=== PATIENT | female | born 1975 | race Caucasian/White ===

== ENCOUNTER 2018-01-30 10:22 | Emergency (ER) | payer OTHER ==
[~2018-01-30] VITALS: Ht 154.9 cm; Wt 61.2 kg
[~2018-01-30 10:22] MED LIST: ABLUNK PO; ACET-1101 PO; ALBUAER2 INH; CLEOCIN PO; MEDLIST
[2018-01-30 10:26] VITALS: Ht 154.9 cm; Wt 61.2 kg
[2018-01-30] MEDS ORDERED: SODIUM CHLORIDE 0.9% 500ML 500 ML IV STA (11:06)
[2018-01-30 11:28] LABS: BASO % 0.4 %; BASO ABS # 0.03 K/uL (0-0.2); EOS % 1.8 %; EOS ABS # 0.14 K/uL (0-0.5); HEMOGLOBIN 14.7 g/dL (12.0-16.0); IG# 0.02 K/uL (0.00-0.02); LYMPH % 27.8 %; MEAN CELL VOLUME 89.2 fL (80-100); MEAN CORPUSCULAR HEMOGLOBIN 31.2 pg (25-34); MEAN PLATELET VOLUME 8.9 fL (7.4-10.4); MONO % 6.3 %; NEUT % 63.4 %; NEUT ABS # 5.01 K/uL (1.4-6.5); PLATELET COUNT 250 K/uL (130-400); RED CELL DISTRIBUTION WIDTH CV 12.7 % (11.5-14.5); RED CELL DISTRIBUTION WIDTH SD 41.4 fL (36.4-46.3)
[2018-01-30 11:45] LABS: ALBUMIN 3.9 gm/dl (3.4-5.0); CALCIUM 9.5 mg/dl (8.5-10.1); CREATININE 0.83 mg/dl (0.60-1.20); POTASSIUM 3.6 mmol/L (3.5-5.1)
[2018-01-30 11:47] LABS: TOTAL PROTEIN 7.4 gm/dl (6.4-8.2)
[2018-01-30] MEDS ORDERED: CEPH500C PO (13:28)
[2018-01-30] MEDS ORDERED: CEPHALEXIN MONOHYDRATE 250 MG CAP PO ONE (13:30)
[2018-01-30 13:58] VITALS: BP 92/71; PULSE 67; TEMP 36.6; O2SAT 94
--- NOTE | 2018-01-30 15:13 | EMERGENCY ROOM VISIT NOTE ---
History Report prepared by Delicia: Jose Stanley Under the Supervision of: Dr. Reji Del Rosario D.O. First contact with patient: 10:59 Chief Complaint: URINARY SYMPTOMS Stated Complaint: PEEING BLOOD, PAIN IN LEFT UPPER ABDOMEN UNDER RIB Nursing Triage Summary: Patient states "I've been peeing blood for 3-4 months. My doctor has been bouncing me around. We done xrays, CT scans. She thinks I have colitis but I don't think that is right. There are time that I pee and there is nothing but blood. I just feel like I am not getting help thru my doctor." History of Present Illness The patient is a 42 year old female who presents to the Emergency Room with complaints of intermittent hematuria beginning four months ago. The patient also complains of left sided abdominal pain, intermittent vomiting and nausea. She most recently vomited this morning. Her additional symptoms have also been present for four months. The patient had a recent abdominal CT two weeks ago which showed colitis. Pain in left upper quadrant has been persistent and unchanged for the past 2 weeks. It is constant. No exacerbating or remitting factors. No diarrhea. No blood in her stools. She feels that she could have an enlarged spleen. Pt denies headache, fevers, chest pain, shortness of breath , diarrhea, and melena. She has a family history of colon cancer and is supposed to receive yearly colonoscopies. She has a history of hysterectomy and cholecystectomy. Source of History: patient Onset: Four months ago Quality: other (hematuria) Timing: intermittent Associated Symptoms: + nausea, + vomiting (intermittent), + abdominal pain ( left sided for four months), No fevers, No headache, No chest pain, No SOB, No melena, No diarrhea Review of Systems See HPI for pertinent positives & negatives. A total of 10 systems reviewed and were otherwise negative. Past Medical & Surgical Medical Problems: (1) Endometriosis Surgical Problems: (1) H/O: hysterectomy (2) Hx of cholecystectomy Family History No pertinent family history stated. Social History Smoking Status: Current Every Day Smoker Housing Status: lives with family Current/Historical Medications Scheduled Cephalexin Monohydrate (Keflex), 500 MG PO TID Allergies Coded Allergies: Hydrocodone (Verified Allergy, Severe, HIVES, CLOSING OF AIRWAY. CAN TAKE TYLENOL W/ CODEINE, 06/17/13) Ibuprofen (Verified Allergy, Severe, HIVES, CLOSING OF AIRWAY, 06/17/13) Acetaminophen (Verified Allergy, ANAPHYLAXIS, 06/17/13) Amoxicillin (Verified Allergy, UNKNOWN, 06/17/13) Clavulanic Acid (Verified Allergy, UNKNOWN, 06/17/13) Lidocaine (Verified Allergy, UNKNOWN, 06/17/13) Oxycodone (Unverified Allergy, ., 06/17/13) Penicillins (Verified Allergy, ANAPHYLAXIS, 06/17/13) Propoxyphene (Verified Allergy, ANAPHYLAXIS, 06/17/13) Morphine (Verified Adverse Reaction, NAUSEA AND VOMITING, 06/17/13) Uncoded Allergies: NOVACAINE (Allergy, UNKNOWN, 10/29/12) Physical Exam Vital Signs Date Time Temp Pulse Resp B/P (MAP) Pulse Ox O2 Delivery O2 Flow Rate FiO2 01/30/18 13:58 36.6 67 20 92/71 94 01/30/18 13:28 67 20 92/71 94 Room Air 01/30/18 11:18 83 19 94/66 100 Room Air 01/30/18 10:26 36.6 74 18 113/81 99 Room Air Physical Exam GENERAL: Sitting up in bed, alert, well appearing, well nourished, no distress, non-toxic EYE EXAM: normal conjunctiva. OROPHARYNX: no exudate, no erythema, lips, buccal mucosa, and tongue normal and mucous membranes are moist NECK: supple, no nuchal rigidity, no adenopathy, non-tender LUNGS: Clear to auscultation. Normal chest wall mechanics HEART: no murmurs, S1 normal and S2 normal ABDOMEN: abdomen soft, non-tender, normo-active bowel sounds, no masses, no rebound or guarding. BACK: Back is symmetrical on inspection and there is no deformity, no midline tenderness, no CVA tenderness. SKIN: no rashes and no bruising UPPER EXTREMITIES: upper extremities are grossly normal. LOWER EXTREMITIES: No pitting edema. NEURO EXAM: Normal sensorium, cranial nerves II-XII grossly intact, normal speech, no gross weakness of arms, no gross weakness of legs. Medical Decision & Procedures ER Provider Diagnostic Interpretation: Radiology results as stated below per my review and the radiologist's interpretation: CT ABDOMEN AND PELVIS WITH CONTRAST (01/24/2018): IMPRESSION: Long segment bowel wall thickening involving the colon, extending from the mid transverse colon through the rectosigmoid colon, raises suspicion for mild colitis, most likely infectious or inflammatory etiology. Tubular fluid collection in the right adnexal region, could represent loculated pelvic fluid, versus hydrosalpinx. Correlation pelvic ultrasound may be helpful, as indicated. Laboratory Results 01/30/18 11:14 Red Blood Count 4.71, Mean Corpuscular Volume 89.2, Mean Corpuscular Hemoglobin 31.2, Mean Corpuscular Hemoglobin Concent 35.0, Mean Platelet Volume 8.9, Neutrophils (%) (Auto) 63.4, Lymphocytes (%) (Auto) 27.8, Monocytes (%) (Auto) 6.3, Eosinophils (%) (Auto) 1.8, Basophils (%) (Auto) 0.4, Neutrophils # (Auto) 5.01, Lymphocytes # (Auto) 2.20, Monocytes # (Auto) 0.50, Eosinophils # (Auto) 0.14, Basophils # (Auto) 0.03 01/30/18 11:14 Test 01/30/18 10:30 01/30/18 11:14 Urine Color DK YELLOW Urine Appearance TURBID (CLEAR) Urine pH 5.5 (4.5-7.5) Urine Specific [place] 1.033 (1.000-1.030) Urine Protein TRACE (NEG) Urine Glucose (UA) NEG (NEG) Urine Ketones TRACE (NEG) Urine Occult Blood 3+ (NEG) Urine Nitrite NEG (NEG) Urine Bilirubin NEG (NEG) Urine Urobilinogen NEG (NEG) Urine Leukocyte Esterase TRACE (NEG) Urine WBC (Auto) 10-30 /hpf (0-5) Urine RBC (Auto) 5-10 /hpf (0-4) Urine Hyaline Casts (Auto) 1-5 /lpf (0-5) Urine Epithelial Cells (Auto) >30 /lpf (0-5) Urine Bacteria (Auto) 4+ (NEG) Urine Renal Epithelial Cells /lpf (0-5) Urine Pathogenic Casts /lpf (0) Urine Yeast (Auto) (NONE PRSENT) Urine Test NEG (NEG) White Blood Count 7.90 K/uL (4.8-10.8) Red Blood Count 4.71 M/uL (4.2-5.4) Hemoglobin 14.7 g/dL (12.0-16.0) Hematocrit 42.0 % (37-47) Mean Corpuscular Volume 89.2 fL (80-100) Mean Corpuscular Hemoglobin 31.2 pg (25-34) Mean Corpuscular Hemoglobin Concent 35.0 g/dl (32-36) Platelet Count 250 K/uL (130-400) Mean Platelet Volume 8.9 fL (7.4-10.4) Neutrophils (%) (Auto) 63.4 % Lymphocytes (%) (Auto) 27.8 % Monocytes (%) (Auto) 6.3 % Eosinophils (%) (Auto) 1.8 % Basophils (%) (Auto) 0.4 % Neutrophils # (Auto) 5.01 K/uL (1.4-6.5) Lymphocytes # (Auto) 2.20 K/uL (1.2-3.4) Monocytes # (Auto) 0.50 K/uL (0.11-0.59) Eosinophils # (Auto) 0.14 K/uL (0-0.5) Basophils # (Auto) 0.03 K/uL (0-0.2) RDW Standard Deviation 41.4 fL (36.4-46.3) RDW Coefficient of Variation 12.7 % (11.5-14.5) Immature Granulocyte % (Auto) 0.3 % Immature Granulocyte # (Auto) 0.02 K/uL (0.00-0.02) Anion Gap 4.0 mmol/L (3-11) Est Creatinine Clear Calc Drug Dose 74.1 ml/min Estimated GFR () 100.8 Estimated GFR (Non- 87.0 BUN/Creatinine Ratio 17.9 (10-20) Calcium Level 9.5 mg/dl (8.5-10.1) Total Bilirubin 0.7 mg/dl (0.2-1) Direct Bilirubin 0.1 mg/dl (0-0.2) Aspartate Amino Transf (AST/SGOT) 7 U/L (15-37) Alanine Aminotransferase (ALT/SGPT) 19 U/L (12-78) Alkaline Phosphatase 84 U/L (45-117) Total Protein 7.4 gm/dl (6.4-8.2) Albumin 3.9 gm/dl (3.4-5.0) Lipase 96 U/L (73-393) Laboratory results per my review. Medications Administered Medications (Trade) Dose Ordered Sig/Petra Route Start Time Stop Time Status Last Admin Dose Admin Sodium Chloride 500 ml @ 999 mls/hr Q31M STAT IV 01/30/18 11:06 01/30/18 11:36 DC 01/30/18 11:16 999 MLS/HR Cephalexin Monohydrate (Keflex Cap) 500 mg NOW ONCE PO 01/30/18 13:30 01/30/18 13:31 DC 01/30/18 13:59 500 MG ED Course ED COURSE: Vital signs were reviewed and appear normal. The patients medical record was reviewed The above diagnostic studies were performed and reviewed. ED treatments and interventions as stated above. 1102: The patient was evaluated in room C11B. A complete history and physical examination was performed. 1106: Ordered Sodium Chloride 500 ml @ 999 mls/hr IV. 1330: Ordered Keflex Cap 500 mg PO. 132: Upon reevaluation, the patient is resting comfortably. I discussed my findings with the patient and he understands and agrees with the treatment plan. Based on the patients age, coexisting illnesses, exam and lab findings the decision to treat as an outpatient was made. The patient remained stable while under my care. The patient appeared well at the time of discharge. Medical Decision Differential diagnoses includes but is not limited to gastritis, peptic ulcer disease, GERD, gallbladder disease, pancreatitis, small bowel obstruction, acute coronary syndrome, pericarditis, ischemic bowel, irritable bowel disease, irritable bowel syndrome, appendicitis, diverticulitis, malignancy, hernia, urinary tract infection, torsion, perforation, trauma, infectious. Patient is a 42-year-old female who presents to ER. That has been present for the past 4 months. She also notes that she has been having left upper quadrant abdominal pain for the same amount of time. IV was established and labs were obtained. CBC along with BMP, LFTs, bilirubin lipase is normal. was negative. UA was contaminated with multiple epithelial cells. Did have hematuria. Patient has CT within the past 2 weeks with the same symptoms. CT did show a little bit of a colitis. With her UA and hematuria did place on Keflex. She has taken this before. She will follow-up with her PCP. Blood pressure was slightly low but this appears to be appropriate for her size/ weight. She was not tachycardic. Afebrile. Patient is otherwise well- appearing discharged follow-up with PCP as an outpatient. Discussed with Pt concerning signs and symptoms to watch out for. Pt was instructed to follow up with their PCP and discussed with the patient their option to return to the ED at anytime for persistent or worsening symptoms. The appropriate anticipatory guidance and out-patient management, including indications for return to the emergency department, were explained at length to the patient and understood. Medication Reconcilliation Current Medication List: was personally reviewed by me Blood Pressure Screening Patient's blood pressure: Normal blood pressure Blood pressure disposition: Did not require urgent referral Impression Primary Impression: Urinary tract infection Additional Impression: Hematuria Scribe Attestation The scribe's documentation has been prepared under my direction and personally reviewed by me in its entirety. I confirm that the note above accurately reflects all work, treatment, procedures, and medical decision making performed by me. Departure Information Dispostion Home / Self-Care Prescriptions Cephalexin Monohydrate (Keflex) 500 Mg Cap 500 MG PO TID for 7 Days, CAP Prov: Reji Del Rosario, DO 01/30/18 Referrals No Doctor, Assigned (PCP) Forms HOME CARE DOCUMENTATION FORM, IMPORTANT VISIT INFORMATION Patient Instructions ED UTI Cystitis Female, Hematuria Poss Causes, My [facility]ure Additional Instructions Please follow up with your primary care doctor with in the next 24 hours. Any worsening of your symptoms, please return to the ED immediately. This includes any fevers greater than 100.4, worsening pain, chest pain, shortness breath, persistent nausea, vomiting, unable to eat or drink, or any other concerning signs or symptoms from your standpoint. Please take antibiotics as prescribed. Problem Qualifiers Primary Impression: Urinary tract infection Urinary tract infection type: site unspecified Hematuria presence: with hematuria Qualified Codes: N39.0 - Urinary tract infection, site not specified ; R31.9 - Hematuria, unspecified Additional Impression: Hematuria Hematuria type: unspecified type Qualified Codes: R31.9 - Hematuria, unspecified
== END 2018-01-30 14:00 | disposition home or self-care (01) ==
LOC: C.EDB 10:25 → C.EDC 14:00
DX: N39.0 Urinary tract infection, site not specified (principal); R31.9 Hematuria, unspecified; N80.9 Endometriosis, unspecified; Z80.0 Family history of malignant neoplasm of digestive organs; F17.210 Nicotine dependence, cigarettes, uncomplicated; Z88.5 Allergy status to narcotic agent; Z88.1 Allergy status to other antibiotic agents; Z88.0 Allergy status to penicillin; Z88.8 Allergy status to other drugs, medicaments and biological substances

== ENCOUNTER → 2018-02-11 | Outpatient (CLI) | payer OTHER ==
[2018-02-11 18:30] LABS: BASO % 0.7 %; BASO ABS # 0.05 K/uL (0-0.2); EOS % 1.9 %; EOS ABS # 0.14 K/uL (0-0.5); HEMATOCRIT 43.4 % (37-47); HEMOGLOBIN 14.6 g/dL (12.0-16.0); IG# 0.01 K/uL (0.00-0.02); LYMPH % 30.2 %; LYMPH ABS # 2.28 K/uL (1.2-3.4); MEAN CELL VOLUME 91.4 fL (80-100); MEAN CORPUSCULAR HEMOGLOBIN 30.7 pg (25-34); MEAN CORPUSCULAR HGB CONC 33.6 g/dl (32-36); MEAN PLATELET VOLUME 9.9 fL (7.4-10.4); MONO % 5.8 %; MONO ABS # 0.44 K/uL (0.11-0.59); NEUT % 61.3 %; NEUT ABS # 4.62 K/uL (1.4-6.5); PLATELET COUNT 256 K/uL (130-400); RED CELL DISTRIBUTION WIDTH CV 13.3 % (11.5-14.5); RED CELL DISTRIBUTION WIDTH SD 44.4 fL (36.4-46.3); WHITE BLOOD COUNT 7.54 K/uL (4.8-10.8)
== END | disposition home or self-care (01) ==
LOC: C.LABMFLN 13:06
PROVIDERS: ATTEND Family Medicine
DX: K52.9 Noninfective gastroenteritis and colitis, unspecified (principal); R10.9 Unspecified abdominal pain

== ENCOUNTER → 2018-02-12 | Outpatient (CLI) | payer OTHER | END | disposition home or self-care (01) | LOC: C.LABMFLN 09:26 | PROVIDERS: ATTEND Family Medicine | DX: K52.9 Noninfective gastroenteritis and colitis, unspecified (principal); R10.9 Unspecified abdominal pain ==

== ENCOUNTER 2019-04-07 05:44 | Observation (INO) ==
--- NOTE | 2019-03-20 14:28 | Anesthesiology Consultation ---
Date of Service March 20, 2019 Assessment & Plan (1) Encounter for pre-operative examination: PATIENT WITH REPORTED LIDOCAINE/NOVOCAINE ALLERGY. NO FORMAL TESTING. CASE D/W DR. DURAND. RECOMMEND THE PATIENT BE ALLERGY TESTED IN THE FUTURE, BUT FOR THIS SURGERY OK TO PROCEED LONG SURGEONS AND OR AWARE (all parties were notified). Chart Review Chart Review: Acceptable Risk for Surgery and Patient seen in Pre Admission Testing Teaching & Discussion Instructed NPO after midnight before surgery, except medications with 15 cc of water. Medication instructions provided according to the PAT guidelines. History Surgery Operation Date: 04/07/19 07:30 Proposed Procedures p Bilateral Breast Mastectomy Nipple Sparing, - Linus Dow, DO s Breast Reconstruction - Dr. Tripathi - Tawny Tripathi MD Height/Weight Height: 5 ft 1 in Weight: 60.1 kg Allergies Allergy/AdvReac Type Severity Reaction Status Date / Time hydrocodone Allergy Severe HIVES, Verified 03/18/19 10:22 CLOSING OF AIRWAY. CAN TAKE TYLENOL W/ CODEINE ibuprofen Allergy Severe HIVES, Verified 03/18/19 10:22 CLOSING OF AIRWAY lidocaine Allergy Severe Anaphylaxis Verified 03/20/19 14:18 onion Allergy Mild Hives Verified 03/18/19 10:22 clavulanic acid Allergy Unknown UNKNOWN Verified 03/18/19 10:22 oxycodone Allergy Unknown . Verified 03/18/19 10:22 propoxyphene Allergy Unknown ANAPHYLAXIS Verified 03/18/19 10:22 Penicillins Allergy Verified 03/18/19 10:22 morphine AdvReac Unknown NAUSEA AND Verified 03/18/19 10:22 VOMITING NOVACAINE Allergy Severe Anaphylaxis Uncoded 03/20/19 14:18 Medications Home Medications Medication Instructions Recorded Confirmed Last Taken albuterol sulfate [Ventolin HFA] 2 puff INHALATION Q6H PRN 03/18/19 03/18/19 Unknown cyanocobalamin (vitamin B-12) 250 mcg PO QAM 03/18/19 03/18/19 Unknown [Vitamin B-12] Past Medical History Medical History Anxiety Asthma uses PRN inh 3-4 x wk BRCA positive 1 and 2 Depression Fibrocystic breast disease Heart palpitations sees Dr. Baldwin every 2 years Hypotension 90/60 norm Migraine Exercise / Class Metabolic Activity II 4-5 Yardwork/Stairs/Walk up hill (No CP or SOB with activity, daily walking on treadmill 5-6 miles) Past Family History Family History Mother Family history of reaction to anesthesia N/V. slow to wake Father Family history of diabetes mellitus Family/Other Family history of diabetes mellitus paternal aunts/uncles Father Family hx of colon cancer Grandfather Family hx of colon cancer Son Family history of irritable bowel syndrome has crohn's Past Surgical History Surgical History History of anesthesia reaction slow to wake History of arthroscopy of left knee History of breast biopsy multiple - (both breasts)--benign History of cholecystectomy History of colonoscopy History of dilatation and curettage x9 History of esophagogastroduodenoscopy (EGD) History of laparoscopy x2 for endometriosis History of myringotomy bilt as a child History of partial hysterectomy History of partial mastectomy of both breasts History of tonsillectomy and adenoidectomy History of tooth extraction wisdom teeth Past Anesthesia History No Hx of Anesthesia Complications 2013 Breast Bx @ [facility] = Smooth IV induction with propofol --> LMA #3 supreme. History of PONV No Hx of PONV and No Hx of Motion Sickness Social History Smoking Status: Former smoker tobacco type: cigarettes Do You Dip or Chew Tobacco: No Smoking End Date: QUIT 6 MONTHS AGO Hx Alcohol Use: No Hx Substance Use: No substance use type: does not use Review of Systems Pt denies any recent chest pain, shortness of breath, palpitations, cough, fever or URI. Physical Exam Vital Signs BP: 101/68 P: 83bpm SPO2: 99% RA T: 97.9 F R: 18 ENMT Mouth: no dental restorations, no chipped teeth and no loose teeth Thyromental Distance: < 3.5 Finger Breadths (3) Mallampati Class: I Most molars are missing (top and bottom) Neck normal visual inspection; neck extension not limited Respiratory normal respiratory effort Auscultation: lungs clear to auscultation bilaterally Cardiovascular Rate/Rhythm: regular rate and regular rhythm Heart Sounds: no murmur Vessels: no carotid bruit Extremities: no edema Testing Laboratory Results 03/20/19 14:34 03/20/19 14:34 03/20/19 14:34 PT 10.3 INR 1.0 APTT 25.4 Electrocardiogram Date: 03/20/19 Findings: + NSR @ (85)
--- NOTE | 2019-03-20 14:30 | PAT Medication Instructions ---
Medication Instructions Date of Service March 20, 2019 Home Medications albuterol sulfate [Ventolin HFA] 2 puff INHALATION Q6H PRN cyanocobalamin (vitamin B-12) [Vitamin B-12] 250 mcg PO QAM DO NOT take the morning of surgery cyanocobalamin (vitamin B-12) [Vitamin B-12] 250 mcg PO QAM Take morning of surgery OTHERWISE NOTHING TO EAT OR DRINK AFTER MIDNIGHT: albuterol sulfate [Ventolin HFA] 2 puff INHALATION Q6H PRN (if needed) Take evening before surgery albuterol sulfate [Ventolin HFA] 2 puff INHALATION Q6H PRN (if needed) Other Notes If you have any questions please call us at [phone] or [phone] or [phone] or [phone]
[2019-03-20 15:21] LABS: BUN Creatinine Ratio 18.5 (10-20); Calcium 8.8 mg/dl (8.5-10.1); Creatinine Clr Calc Pharmacy 77.4 ml/min; Est GFR (African American) 107.9; Est GFR (Non-African American) 93.1; Potassium 4.3 mmol/L (3.5-5.1)
[2019-03-20 15:30] LABS: Partial Thromboplastin Ratio 0.9; Partial Thromboplastin Time 25.4 Seconds (21.0-31.0); Prothrombin Time 10.3 Seconds (9.0-12.0)
[2019-03-20 15:31] LABS: Basophils # (auto) 0.05 K/uL (0-0.2); Basophils % (auto) 0.8 %; Eosinophils # (auto) 0.15 K/uL (0-0.5); Eosinophils % (auto) 2.4 %; Hematocrit (blood only) 42.6 % (37-47); Hemoglobin 14.8 g/dL (12.0-16.0); Immature Granulocytes # (auto) 0.01 K/uL (0.00-0.02); Immature Granulocytes % (auto) 0.2 %; Lymphocytes # (auto) 2.58 K/uL (1.2-3.4); Lymphocytes % (auto) 41.6 %; Mean Corpuscular Hgb Conc 34.7 g/dL (32-36); Mean Corpuscular Volume 91.6 fL (80-100); Mean Platelet Volume 9.3 fL (7.4-10.4); Monocytes # (auto) 0.44 K/uL (0.11-0.59); Monocytes % (auto) 7.1 %; Neutrophils # (auto) 2.97 K/uL (1.4-6.5); Neutrophils % (auto) 47.9 %; Platelet Count 260 K/uL (130-400); RDW Coefficient of Variation 12.3 % (11.5-14.5); RDW Standard Deviation 41.2 fL (36.4-46.3); Red Blood Count 4.65 M/uL (4.2-5.4)
[2019-04-07] MEDS ORDERED: LR 15ML/HR IV SCH (06:00)
[2019-04-07] MEDS ORDERED: CLINDAMYCIN 900 MG / 50ML D5W IV SCH (06:00)
[2019-04-07] MEDS ORDERED: ePHEDrine sulfate 50 MG/ML AMP IV PRN (06:55)
[2019-04-07] MEDS ORDERED: ATROPINE SULFATE 0.1 MG/ML 10ML SYR IV PRN (06:55)
[2019-04-07] MEDS ORDERED: PROMETHAZINE HCL 6.25 MG in SODIUM CHLORIDE 0.9% 50 ML IV PRN (06:55)
[2019-04-07] MEDS ORDERED: ONDANSETRON INJ 2 MG/ML 2 ML VIAL IV PRN (06:55)
--- NOTE | 2019-04-07 07:02 | History & Physical Bridge Note ---
Date of Service April 07, 2019 History & Physical Bridge Note I have examined the patient, reviewed the History & Physical and in the interval since the performance of the History & Physical I have noted the following changes of clinical significance: no changes noted
[2019-04-07] MEDS ORDERED: MIDAZOLAM HCL 1 MG/ML 2ML VIAL ONE (07:10)
[2019-04-07] MEDS ORDERED: fentaNYL citrate 100 MCG/2 ML VIAL ONE ×5 (07:10→13:56)
[2019-04-07] MEDS ORDERED: SCOPOLAMINE 1.5 MG TDSY ONE (07:13)
[2019-04-07] MEDS ORDERED: SCOPOLAMINE 1.5 MG TDSY TD SCH (07:15)
[2019-04-07] MEDS ORDERED: BUPIVACAINE 0.5 % 5 MG/1 ML PF 10ML VIAL ONE (07:18)
--- NOTE | 2019-04-07 07:40 | History & Physical Bridge Note ---
Date of Service April 07, 2019 History & Physical Bridge Note I have examined the patient, reviewed the History & Physical and in the interval since the performance of the History & Physical I have noted the following changes of clinical significance: no changes noted. Patient states she is not smoking.
[2019-04-07] MEDS ORDERED: KETAMINE HCL INJ 50 MG/ML 10 ML VIAL ONE (08:01)
[2019-04-07] MEDS ORDERED: ONDANSETRON INJ 2 MG/ML 2 ML VIAL ONE (08:21)
[2019-04-07] MEDS ORDERED: PROPOFOL IV EMULSION 10 MG/ML 20 ML VIAL IV ONE (08:21)
[2019-04-07] MEDS ORDERED: ROCURONIUM BROMIDE 10 MG/ML 5 ML VIAL ONE ×3 (08:21→12:30)
[2019-04-07] MEDS ORDERED: GLYCOPYRROLATE 0.2 MG/ML VIAL ONE (08:21)
[2019-04-07] MEDS ORDERED: NEOSTIGMINE METHYLSULFATE 5 MG/5 ML SYR ONE (08:21)
[2019-04-07] MEDS ORDERED: CEFAZOLIN 250 MG/ML 1 GM VIAL ONE ×2 (10:05→11:02)
[2019-04-07] MEDS ORDERED: GENTAMICIN SULFATE 40 MG/ML 2 ML VIAL ONE ×2 (10:06→11:02)
[2019-04-07] MEDS ORDERED: BACITRACIN INJ 50,000 UNIT VIAL ONE ×2 (10:06→11:02)
--- NOTE | 2019-04-07 10:53 | Operative Report ---
Post Operative Report Pre & Post Diagnosis Operation Date: 04/07/19 07:30 Pre-Op Diagnosis: Mass Axillary Tail Left Breast, Masses Right Breast Post-Op Diagnosis: Mass Axillary Tail Left Breast, Masses Right Breast Procedure Operation Date: 04/07/19 07:30 Actual Procedures p Bilateral Breast Mastectomy, Nipple Sparing,(Bilateral) - Linus Dow DO s First Stage Bilateral Immediate Breast Reconstruction with Tissue Expanders and Acellular Dermal Matrix(Bilateral) - Tawny Tripathi MD Surgeon Linus Dow DO [facility] Ravi Estimated Blood Loss 100 Findings Consistent with Post-Op Diagnosis Specimens right and left breasts Description of Procedure Prior to coming to the operating room the patient had been marked by Dr. Tripathi in the preop holding area. Patient was then brought to the operating room placed in supine position with both arms extended. After successful intubation the entire chest wall axilla and upper arms were sterilely prepped and draped in usual fashion. I began with the right breast. We made an inframammary curvilinear incision along the previously marked lines with a 10 blade scalpel. We used electrocautery traction countertraction to begin making flaps superiorly laterally and medially. We carried this posteriorly to the pectoralis fascia. Throughout the procedure there was a lot of scarring from her previous surgeries as well as current cystic tissue some of it with sebaceous type of fluid and some with thinner serous fluid. Nonetheless we continued to proceed medially superiorly and ultimately laterally. We continued to use multiple types of retractors as well as traction/ countertraction and cautery. Any small bleeding points were controlled using cautery. Part way through the procedure I amputated part of the breast to allow for better visualization. We then continued towards the axillary tail. I tried to leave relatively thick flaps especially in the retroareolar region to help minimize risk of necrosis secondary to her multiple prior surgeries. There was an area just superior to the right nipple areolar complex that was extremely thin and a very small buttonhole was made during this process. There appeared to be reasonable blood flow throughout the procedure. Eventually I was able to remove the entire right breast. There was adequate hemostasis. We thoroughly irrigated the entire wound and packed it with moist sponges. We used exact same technique then for the left breast. I changed my gloves and began with a fresh blade to make again an inframammary incision on the previously marked lines. Again using traction countertraction retractors we went down to the fascia of the pectoralis muscle. We did not take pectoralis fascia on either side though scarring did make the plane somewhat difficult. We continued in a superior to lateral fashion. Again partly through the procedure I amputated part of the breast for better visualization. The left breast also had a lot of scarring as well as cystic tissue present. All of this made dissection quite difficult as the natural tissue planes had been obliterated. Again eventually we were able to remove the entire specimen. Again I tried to leave relatively thick flaps especially in the retroareolar region. Once we had the breast tissue completely out we thoroughly irrigated the wound and again packed with damp sponges. At this point Dr. Tripathi took over the case to place the tissue expanders. Please see her dictation regarding that. My physician custody assistant was present to the entire case. He assisted with prepping the patient. Helped with retraction throughout the procedure. I attest to the content of the Intraoperative Record and any orders documented therein. Any exceptions are noted below.
[2019-04-07] MEDS ORDERED: SODIUM CHLORIDE 0.9% INJ 10 ML VIAL ONE (11:20)
[2019-04-07] MEDS ORDERED: ACETAMINOPHEN 1000 MG/100 ML IV IV ONE (12:26)
[2019-04-07] MEDS ORDERED: HYDROmorphone INJ 2 MG/ML SYR/VIAL ONE (13:24)
--- NOTE | 2019-04-07 13:41 | Post Operative Brief Note ---
Immediate Post Op Note v1 Date of Surgery April 07, 2019 Pre & Post Diagnosis Operation Date: 04/07/19 07:30 Pre-Op Diagnosis: Mass Axillary Tail Left Breast, Masses Right Breast Post-Op Diagnosis: Mass Axillary Tail Left Breast, Masses Right Breast Procedure Operation Date: 04/07/19 07:30 Actual Procedures p Bilateral Breast Mastectomy, Nipple Sparing,(Bilateral) - Linus Dow, s First Stage Bilateral Immediate Breast Reconstruction with Tissue Expanders and Acellular Dermal Matrix(Bilateral) - Tawny Tripathi MD Surgeon Tawny Tripathi MD L Tacker Mary Nash PA-C Estimated Blood Loss 100 ([address] Dow ) Findings Consistent with Post-Op Diagnosis Drains Amaral Catheter and Ricardo-Garcia Drain (X 2 15 Bulgarian round )
--- NOTE | 2019-04-07 13:46 | Operative Report ---
Post Operative Report Pre & Post Diagnosis Operation Date: 04/07/19 07:30 Pre-Op Diagnosis: Mass Axillary Tail Left Breast, Masses Right Breast Post-Op Diagnosis: Mass Axillary Tail Left Breast, Masses Right Breast Procedure Operation Date: 04/07/19 07:30 Actual Procedures p Bilateral Breast Mastectomy, Nipple Sparing,(Bilateral) - Linus Dow, DO s First Stage Bilateral Immediate Breast Reconstruction with Tissue Expanders and Acellular Dermal Matrix(Bilateral) - Tawny Tripathi MD Surgeon Tawny Tripathi MD Horticultural Farmer Mary Nash PA-C Estimated Blood Loss 100 ([address] Dow ) Findings Consistent with Post-Op Diagnosis Specimens none Drains KAY x2 Anesthesia Type General Complications none Indications s/p bilateral mastectomies, desiring reconstruction Description of Procedure Patient was marked preoperatively in the holding area. Mastectomies performed by Dr. Dow and separately documented. Following completion, a new time out was performed and new drapes were placed. I began with the left side. Hemostasis was achieved with electrocautery. Pectoralis major muscle was then identified and elevated. Inferior attachments of pectoralis major muscle were divided along the ribs medially to the sternum. None of the sternal attachments were dissected. The retropectoral plane was then developed using electrocautery. Hemostasis was achieved using cautery. Once adequate dissection had been performed, I then chose a piece of medium contour thick AlloDerm which was then used to create a sling for the lower pole. This was first sutured to the inframammary fold and rib periosteum using 2-0 Vicryl U stitches. Pocket was then measured and base diameter was 11 cm. Therefore, I selected a 11 cm Allergan style 133 MVT tissue school office assistant with fill volume 250 mL. The school office assistant was prepared and air was aspirated out. The school office assistant was soaked in antibiotic irrigation and antibiotic irrigation was used to irrigate the pocket. All instruments were wiped down and gloves were changed. Financial Manager was placed along the inframammary fold as medially as possible. Suture tabs were sutured down to underlying periosteum using a 2-0 Vicryl suture. The remainder of the school office assistant was then enclosed using 2-0 Vicryl running suture to reapproximate the AlloDerm which had been trimmed to size and this was approximated to the pectoralis major muscle. Laterally, this was closed down using 2-0 Vicryl interrupted sutures as well. A 15-Maltese Yasmani drain was placed in the wound and brought out through a separate stab incision. Prior to reapproximating the wound the fill port was identified using the magnifinder and accessed using 22-gauge needle. A total of 175 mL were placed prior to closure. Wound was reapproximated using 2-0 Vicryl deep dermal suture, 3-0 PDS superficial dermal suture and 3-0 Monocryl running subcuticular suture. Drain was sutured in place using 3-0 nylon. Dermabond was applied. A similar procedure was performed on the right side, first freshening the edges of the wound as they appeared a bit desicated. Also, there was a small 1 cm button hole on the right side, and this was excised and closed using 5-0 monocryl running subcuticular suture. The drain site was dressed using Acticoat dry dressing and Tegaderm. Dry dressings were placed over the incision. Procedure was tolerated well. Mary Nash PA-C was present and scrubbed throughout the entire procedure and was instrumental in providing exposure during elevation of pectoralis muscle and suturing of the AlloDerm as well as filling expanders and assisting in wound closure. I attest to the content of the Intraoperative Record and any orders documented therein. Any exceptions are noted below.
[2019-04-07] MEDS ORDERED: HYDROmorphone INJ 1 MG/ML SYRINGE ONE (13:57)
[2019-04-07] MEDS: fentaNYL citrate 100 MCG/2 ML VIAL IV PRN ×4 (14:00→14:15)
--- NOTE | 2019-04-07 14:14 | Anesthesiology Progress Note ---
Date of Service April 07, 2019 Anesthesia Post Procedure Vital Signs Vital Signs: Temp Pulse Pulse Resp BP BP Pulse Ox 04/07/19 13:51 36.9 C 94 H 16 139/78 100 04/07/19 06:13 36.9 C 78 18 111/69 100 Pain Intensity Bilateral Breast: Pain Intensity: 8 Transfer of Care Handoff Completed per policy Notes Mental Status: alert / awake / arousable Patient Amnestic to Procedure: Yes Nausea / Vomiting: adequately controlled Pain: adequately controlled Airway Patency, RR, SpO2: stable & adequate BP & HR: stable & adequate Hydration State: stable & adequate Anesthetic Complications: no major complications apparent
[2019-04-07] MEDS: HYDROmorphone INJ 2 MG/ML SYR/VIAL IV PRN ×3 (14:30→14:40)
[2019-04-07] MEDS ORDERED: ACETAMINOPHEN 1000 MG/100 ML IV IV PRN (15:36)
[2019-04-07] MEDS ORDERED: ALBUTEROL HFA 8 GM INHALER INH PRN (15:36)
[2019-04-07] MEDS ORDERED: OXAZEPAM 10 MG CAPSULE PO PRN (15:36)
[2019-04-07] MEDS ORDERED: PROMETHAZINE HCL 12.5 MG in SODIUM CHLORIDE 0.9% 50 ML IV PRN (15:36)
[2019-04-07] MEDS ORDERED: DiphenhydrAMINE HCL 50 MG/ML VIAL IV PRN (15:36)
[2019-04-07] MEDS: CHECK SCOPOLAMINE PATCH PLACEMENT SCH ×3 (17:25→23:27)
[2019-04-07] MEDS: HYDROmorphone INJ 1 MG/ML SYRINGE IV PRN ×3 (17:33→21:57)
[2019-04-07] MEDS: D5W AND 1/2NSS + 20MEQ KCL 20 MEQ/1,000 ML BAG IV SCH (17:37)
[2019-04-07] MEDS: ONDANSETRON INJ 2 MG/ML 2 ML VIAL IV PRN (18:24)
[2019-04-07] MEDS: CLINDAMYCIN 600 MG in DEXTROSE 5% 50 ML IV SCH (19:02)
[2019-04-08] MEDS: HYDROmorphone INJ 1 MG/ML SYRINGE IV PRN ×4 (00:41→11:50)
[2019-04-08] MEDS: CLINDAMYCIN 600 MG in DEXTROSE 5% 50 ML IV SCH ×2 (01:41→09:32)
[2019-04-08] MEDS: D5W AND 1/2NSS + 20MEQ KCL 20 MEQ/1,000 ML BAG IV SCH ×2 (07:39→19:48)
[2019-04-08] MEDS: ONDANSETRON INJ 2 MG/ML 2 ML VIAL IV PRN (07:42)
[2019-04-08] MEDS ORDERED: ONDANSETRON 4 MG OD TAB PO PRN (07:55)
--- NOTE | 2019-04-08 07:57 | Anesthesiology Progress Note ---
Date of Service April 08, 2019 Anesthesia Post Procedure Vital Signs Vital Signs: Temp Pulse Pulse Pulse Resp BP BP 04/08/19 07:09 37.1 C 92 H 16 04/08/19 03:18 36.8 C 75 16 04/07/19 22:51 36.9 C 86 16 04/07/19 18:45 36.6 C 72 13 130/74 04/07/19 17:50 36.7 C 73 18 04/07/19 16:40 36.5 C 71 18 04/07/19 16:10 36.5 C 68 16 04/07/19 15:40 36.7 C 100 H 15 04/07/19 15:27 37.0 C 04/07/19 15:25 98 H 14 04/07/19 15:21 72 13 04/07/19 15:20 72 14 99/62 L 04/07/19 15:16 80 14 04/07/19 15:15 95 H 14 140/63 04/07/19 15:11 76 14 04/07/19 15:10 96 H 14 128/68 04/07/19 15:08 37.0 C 04/07/19 15:06 69 8 L 04/07/19 15:05 74 14 117/65 04/07/19 15:01 97 H 9 L 04/07/19 15:00 67 7 L 129/66 04/07/19 14:56 93 H 11 L 04/07/19 14:55 73 7 L 123/61 04/07/19 14:51 77 15 04/07/19 14:50 68 14 121/57 L 04/07/19 14:46 70 14 04/07/19 14:45 68 19 106/64 04/07/19 14:41 71 13 04/07/19 14:40 78 14 126/74 04/07/19 14:36 67 20 04/07/19 14:35 72 18 132/63 04/07/19 14:31 68 18 04/07/19 14:30 69 14 124/63 04/07/19 14:26 66 21 04/07/19 14:25 69 18 116/60 04/07/19 14:21 66 13 04/07/19 14:20 66 13 114/62 04/07/19 14:16 64 22 04/07/19 14:15 72 17 119/67 06/17/19 14:11 63 18 04/07/19 14:10 67 17 116/66 04/07/19 14:06 70 20 04/07/19 14:05 69 22 124/65 04/07/19 14:01 74 18 04/07/19 14:00 72 24 127/75 04/07/19 13:56 71 19 04/07/19 13:55 72 22 124/70 04/07/19 13:52 96 H 20 139/78 04/07/19 13:51 36.9 C 94 H 20 BP Pulse Ox 04/08/19 07:09 107/68 95 04/08/19 03:18 107/71 96 04/07/19 22:51 97/66 L 97 04/07/19 18:45 95 04/07/19 17:50 111/72 96 04/07/19 16:40 106/60 99 04/07/19 16:10 120/68 94 04/07/19 15:40 121/68 93 04/07/19 15:27 96 04/07/19 15:25 95 04/07/19 15:21 96 04/07/19 15:20 95 04/07/19 15:16 94 04/07/19 15:15 96 04/07/19 15:11 96 04/07/19 15:10 95 04/07/19 15:08 96 04/07/19 15:06 94 04/07/19 15:05 96 04/07/19 15:01 94 04/07/19 15:00 93 04/07/19 14:56 96 04/07/19 14:55 95 04/07/19 14:51 98 04/07/19 14:50 96 04/07/19 14:46 96 04/07/19 14:45 97 04/07/19 14:41 97 04/07/19 14:40 96 04/07/19 14:36 98 04/07/19 14:35 98 04/07/19 14:31 100 04/07/19 14:30 99 04/07/19 14:26 100 04/07/19 14:25 99 04/07/19 14:21 99 04/07/19 14:20 100 04/07/19 14:16 100 04/07/19 14:15 04/07/19 14:11 04/07/19 14:10 04/07/19 14:06 04/07/19 14:05 04/07/19 14:01 04/07/19 14:00 04/07/19 13:56 04/07/19 13:55 04/07/19 13:52 04/07/19 13:51 139/78 100 Pain Intensity Bilateral Breast: Pain Intensity: 9 Notes Mental Status: alert / awake / arousable Patient Amnestic to Procedure: Yes Nausea / Vomiting: adequately controlled Pain: adequately controlled Airway Patency, RR, SpO2: stable & adequate BP & HR: stable & adequate Hydration State: stable & adequate Anesthetic Complications: no major complications apparent and Pt Satisfied with anesthetic care
[2019-04-08] MEDS ORDERED: ACETAMINOPHEN W/CODEINE #3 1 TAB PO PRN (08:04)
--- NOTE | 2019-04-08 08:09 | Surgery Progress Note ---
Date of Service April 08, 2019 Assessment & Plan (1) Encounter for breast reconstruction following mastectomy: s/p bilateral mastectomy with immediate reconstruction using tissue expanders and acellular dermal matrix 1. Will start patient on Tylenol #3. If able to control pain this morning, plan for d/c later today 2. f/u in office . restrictions reviewed Subjective Patient resting comfortably. She has had discomfort but would like to try PO pain medication since that is what she will be taking at home. Has nausea that is controlled with Zofran. Physical Exam Constitutional: WD/WN, vitals as above no acute distress Skin: + incision (CDI, flaps with some central ecchymosis, appear viable and warm. ) drains with bloody and serous output Results & Data Vital Signs (Past 12 Hours) Vital Signs Temp Pulse Resp BP Pulse Ox 04/08/19 07:09 37.1 C 92 H 16 107/68 95 04/08/19 03:18 36.8 C 75 16 107/71 96 04/07/19 22:51 36.9 C 86 16 97/66 L 97
[2019-04-08] MEDS ORDERED: CYANOCOBALAMIN 500 MCG TABLET (VITAMIN B-12) PO SCH (09:00)
[2019-04-08] MEDS ORDERED: MULTIVITAMIN TAB PO SCH (09:00)
--- NOTE | 2019-04-08 09:13 | Surgery Progress Note ---
Date of Service April 08, 2019 Assessment & Plan (1) Bilateral breast cysts: pod 1 doing as anticipated ok for d/c later today/tomorrow pending pain control Subjective doing ok POD 1 considerable discomfort but reasonable on dilaudid. Physical Exam Physical Exam: alert. nad dressings intact/dry Results & Data Vital Signs (Past 12 Hours) Vital Signs Temp Pulse Resp BP Pulse Ox 04/08/19 07:09 37.1 C 92 H 16 107/68 95 04/08/19 03:18 36.8 C 75 16 107/71 96 04/07/19 22:51 36.9 C 86 16 97/66 L 97
[2019-04-08] MEDS: CHECK SCOPOLAMINE PATCH PLACEMENT SCH (10:03)
[2019-04-08] MEDS: HYDROmorphone HCL 2 MG TAB PO PRN ×2 (15:44→19:47)
[2019-04-08] MEDS: ACETAMINOPHEN 65 ML IV SCH ×2 (16:17→23:17)
[2019-04-08] MEDS: ACETAMINOPHEN W/CODEINE #3 1 TAB PO PRN (22:01)
[2019-04-09] MEDS: HYDROmorphone HCL 2 MG TAB PO PRN ×2 (01:41→07:07)
[2019-04-09] MEDS: ACETAMINOPHEN W/CODEINE #3 1 TAB PO PRN (04:05)
[2019-04-09] MEDS: ACETAMINOPHEN 65 ML IV SCH (07:53)
--- NOTE | 2019-04-09 07:57 | Discharge Summary ---
Date of Service April 09, 2019 Admission HPI Per Admitting Provider see admission H&P Admission Exam Per Admitting Provider see admission H&P Principal Diagnosis Increased risk of breast cancer, encounter for breast reconstruction following mastectomy Discharge Exam Constitutional WD/WN, vitals as above no acute distress Skin + incision (CDI, flaps with some central ecchymosis, appear viable and warm. ) Discharge Data Allergies Allergy/AdvReac Type Severity Reaction Status Date / Time hydrocodone Allergy Severe HIVES, Verified 04/07/19 06:10 CLOSING OF AIRWAY. CAN TAKE TYLENOL W/ CODEINE ibuprofen Allergy Severe HIVES, Verified 04/07/19 06:10 CLOSING OF AIRWAY lidocaine Allergy Severe Anaphylaxis Verified 04/07/19 06:10 Penicillins Allergy Severe Anaphylaxis Verified 04/07/19 16:02 propoxyphene Allergy Severe ANAPHYLAXIS Verified 04/07/19 16:02 onion Allergy Mild Hives Verified 04/07/19 06:10 clavulanic acid Allergy Unknown UNKNOWN Verified 04/07/19 06:10 oxycodone Allergy Unknown . Verified 04/07/19 06:10 morphine AdvReac Mild NAUSEA AND Verified 04/07/19 16:02 VOMITING Consultations 04/08/19 14:05 Consult Case Management - Discharge Planning Stat Procedures Performed Operation Date: 04/07/19 07:30 Actual Procedures p Bilateral Breast Mastectomy, Nipple Sparing,(Bilateral) - DO cristian Winter First Stage Bilateral Immediate Breast Reconstruction with Tissue Expanders and Acellular Dermal Matrix(Bilateral) - Tawny Tripathi MD Ordered Studies 04/07/ 07:07 US - OR guided needle placemen Routine US - OR guided needle placemen Routine Hospital Course (1) Encounter for breast reconstruction following mastectomy: Patient presented to [facility] with history of bilateral breast cysts and increased risk of breast cancer. She was taken to the OR and underwent bilateral mastectomy with Dr. Dow and immediate breast reconstruction using tissue expanders and acellular dermal matrix with Dr. Tripathi. There were no intraoperative complications. She was taken to recovery and transferred to med/surg for observation. On POD#1, she was feeling well but did have considerable pain. Her pain was controlled with IV pain medication but not PO pain medications. She was tolerating a regular diet and ambulating. On exam, her vitals were stable. Her incisions were CDI. Her drains had appropriate output. She was kept overnight for pain control. On POD#2 her pain was optimized with PO dilaudid and Tylenol #3. On exam, her dressings were removed and flaps were warm and viable. She was discharged home with instructions to follow-up in the office. Total Time Total Time Spent Total Time Spent (In Minutes): 15 Total Time Includes: Examination of the Patient, Discharge Planning and Medication Reconciliation Discharge Plan Discharge Items Patient Disposition: Home - Self-Care Reason For Visit: Mass Axillary Tail Left Breast, Masses Right Breas Discharge Diagnosis: s/p bilateral mastectomy with immediate reconstruction Discharge Goals: Decrease discomfort and Improve function Activity: As commented below Non-emergency contact: Surgeon Call non-emergency contact if: you have any medication questions, your pain is unusual for you, you have a fever, your wound has increased redness and your wound has increased drainage Follow-up/Referrals: Jian Hatch MD [Primary Care Provider] - Diet: Regular Addtl Provider Instructions: ACTIVITY RECOMMENDATIONS: __Normal activities _x_No bending, lifting or straining __No driving __Driving allowed when you are off pain medications _x_Walking permitted __You should have help at home for ___ days DRESSINGS: __No dressings required _x_Keep dressings dry/in place until first office visit __Remove dressings ___ and leave dressings off __Apply ice ___ days __Remove dressings and reapply garment __Apply antibiotic ointment (Bacitracin, Neosporin, etc) to wounds 3-4 times/day for 10 days BATHING: _x_Keep dressings dry _x_Sponge bathing permitted away from surgical area __Showering permitted _x_No swimming, hot tubs or soaking in a tub. No showering until drains are removed. MEDICATIONS: Resume previous medications unless instructed otherwise by your surgeon. _x_Do not use aspirin, Motrin, Advil or Ibuprofen as these may promote bleeding. Please use Tylenol. _x_Prescription(s) provided: Pain medication and antibiotics were prescribed at your last office visit. Start antibiotics once home. You must remain on antibiotics while drains are in place. If you run out of refills, call the office. OTHER INSTRUCTIONS: * _x_Record drain output 2-3 times per day. Drains are ready to be removed when output is 10cc/24 hours and stays at this level for 2 days. Call the office when you think they are ready to be removed. SPECIAL CARE INSTRUCTIONS: * It is normal to have a mild fever after surgery. If your temperature is higher than 101.5 degrees F, please call the office at [phone]. * Constipation is a typical side effect of pain medication. An [id number] stool softener will help relieve this. * Leaking around surgical drains may occur and should not cause concern. Sometimes these drains become clogged. If this happens, remove the bulb and milk the clot out of the tube, then replace the bulb. * Drainage from wounds after liposuction is normal and should be expected. Garments will become soiled. You should protect furniture and bedding. This drainage should mostly subside within 2-3 days. Leave garments in place unless instructed to remove them. * If you have unusual drainage from a wound or are concerned you have an infection or have any questions or concerns, please call the office at [phone]. FOLLOW UP VISIT: If not already scheduled, please call the office, , when you return home after surgery to schedule an appointment to be seen in __1_ days. Prescriptions: Continued Vitamin B-12 250 mcg Tablet 250 mcg PO QAM RF: 0 albuterol sulfate [Ventolin HFA] 90 mcg/actuation Hfa Aerosol Inhaler 2 puff INHALATION Q6H PRN (Reason: Shortness Of Breath) RF: 0 Stand-Alone Forms: [facility], Opioid Pain Management Discharge Orders: Discharge Order (Routine); Ordered 04/09/19 Ordered By: Mary Nash Admission Data Admit Date/Time: 04/07/19 14:18 Attending Provider: Tawny Tripathi Admit Provider: Tawny Tripathi Primary Care Provider: Jian Hatch Other Providers: Tawny Tripathi Service: Surgical Services Other Interventions: Discharge Summary Assessment (RN) Last Done: 04/09/19 08:10 DC Date/Time DO NOT enter until pt leaves facility: 04/09/19 09:22
--- NOTE | 2019-04-09 08:01 | Surgery Progress Note ---
Date of Service April 09, 2019 Assessment & Plan (1) Encounter for breast reconstruction following mastectomy: s/p bilateral mastectomy with immediate reconstruction using tissue expanders and acellular dermal matrix 1. POD#2- patient has better pain control today. She was provided with script for PO dilaudid and Zofran for at home use. Discussed Dilaudid with case management who states prescription will be covered at cost of $12 to patient- this was verbalized to the patient 2. dressings removed today. no new dressings required 3. d/c home today. f/u in office for suture and drain removal Subjective Patient has better pain control today. Found that alternating PO dilaudid and Tylenol #3 has optimized her pain control. Physical Exam Constitutional: WD/WN, vitals as above no acute distress Skin: + incision (CDI, flaps with some central ecchymosis, appear viable and warm. ) Results & Data Vital Signs (Past 12 Hours) Vital Signs Temp Pulse Resp BP Pulse Ox 04/09/19 07:25 37.1 C 91 H 15 108/72 94 04/08/19 23:10 37.0 C 98 H 16 112/68 94
== END 2019-04-09 09:22 | disposition home or self-care (01) ==
LOC: 3W 05:44 → ASU 05:44
DX: F32.9 Major depressive disorder, single episode, unspecified; D24.2 Benign neoplasm of left breast; N60.22 Fibroadenosis of left breast; J45.909 Unspecified asthma, uncomplicated; N60.12 Diffuse cystic mastopathy of left breast; E53.8 Deficiency of other specified B group vitamins; G62.9 Polyneuropathy, unspecified; Z88.5 Allergy status to narcotic agent; Z88.4 Allergy status to anesthetic agent; Z80.3 Family history of malignant neoplasm of breast; D24.1 Benign neoplasm of right breast; Z87.891 Personal history of nicotine dependence; N60.11 Diffuse cystic mastopathy of right breast; K21.9 Gastro-esophageal reflux disease without esophagitis; N60.21 Fibroadenosis of right breast; Z88.0 Allergy status to penicillin

== ENCOUNTER 2019-07-13 13:20 | Inpatient (IN) ==
[2019-07-13] MEDS ORDERED: ONDANSETRON INJ 2 MG/ML 2 ML VIAL IV STA ×2 (13:34→14:08)
[2019-07-13] MEDS ORDERED: SODIUM CHLORIDE 0.9% 1000ML 1,000 ML IV SCH (13:45)
[2019-07-13 14:03] LABS: Basophils # (auto) 0.03 K/uL (0-0.2); Basophils % (auto) 0.4 %; Eosinophils # (auto) 0.08 K/uL (0-0.5); Eosinophils % (auto) 1.2 %; Hematocrit (blood only) 40.3 % (37-47); Hemoglobin 13.8 g/dL (12.0-16.0); Immature Granulocytes # (auto) 0.01 K/uL (0.00-0.02); Immature Granulocytes % (auto) 0.1 %; Lymphocytes % (auto) 24.8 %; Mean Corpuscular Hemoglobin 30.5 pg (25-34); Mean Corpuscular Hgb Conc 34.2 g/dL (32-36); Mean Corpuscular Volume 89.2 fL (80-100); Mean Platelet Volume 9.2 fL (7.4-10.4); Monocytes # (auto) 0.59 K/uL (0.11-0.59); Monocytes % (auto) 8.6 %; Neutrophils # (auto) 4.45 K/uL (1.4-6.5); Neutrophils % (auto) 64.9 %; Platelet Count 202 K/uL (130-400); RDW Coefficient of Variation 12.7 % (11.5-14.5); RDW Standard Deviation 40.9 fL (36.4-46.3); Red Blood Count 4.52 M/uL (4.2-5.4); White Blood Count 6.86 K/uL (4.8-10.8)
[2019-07-13] MEDS ORDERED: DAPTOmycin 275 MG in SYRINGE 0 ML IV ONE (14:08)
[2019-07-13] MEDS ORDERED: AZTREONAM 2,000 MG in DEXTROSE 5% 100 ML IV STA (14:08)
[2019-07-13 14:20] LABS: Albumin Level 3.6 gm/dl (3.4-5.0); BUN Creatinine Ratio 15.1 (10-20); Calcium 8.4 mg/dl (8.5-10.1); Creatinine Clr Calc Pharmacy 85.4 ml/min; Est GFR (Non-African American) 99.2; Potassium 3.9 mmol/L (3.5-5.1)
[2019-07-13 14:22] LABS: Albumin Globulin Ratio 1.1 (0.9-2); Bilirubin,Total 0.6 mg/dl (0.2-1); Globulin 3.2 gm/dl (2.5-4.0); Total Protein 6.8 gm/dl (6.4-8.2)
[2019-07-13] MEDS: HYDROmorphone INJ 0.5 MG/0.5 ML SYR IV PRN (14:43)
--- NOTE | 2019-07-13 15:09 | Surgery Consultation ---
Date of Consultation July 13, 2019 Assessment & Plan (1) Cellulitis: Right breast cellulitis with bilateral tissue expanders in place- Case discussed with patient and Dr. Trujillo. Clinically this is most consistent with cellulitis (cause unknown) and she is at risk of reconstructive loss if cellulitis is not treated aggressively. Less likely causes of the erythema are seroma, lymphadema, allergic reaction. Admission recommended due to cellulitis and other symptoms. She will be started on cefepime/Vanco per medical service. Ultrasound ordered to assess for seroma or abscess. Consider adding antihistamine. Patient understands if we are able to control this we may be able to proceed with her planned outpatient procedure, but if she fails to respond to treatment there is a possibility of need for distribution sales manager exchange or complete removal. Will follow closely. (2) Breast implant status: History of Present Illness Reason for Consultation: right breast cellulitis History of Present Illness Patient is a 43 year old female with history of severe fibrocystic disease of the breasts, multiple prior breast biopsies, BRCA + who underwent bilateral mas tectomies with Dr. Dow, bilateral first stage immediate breast reconstruction with tissue expanders and Alloderm performed by me in March 2019. She was last seen in our office about 6 weeks ago, fully expanded and doing well, with plans to undergo implant exchange for silicone implants on 08/08/19. She contacted me via the answering service this afternoon with a 3 day history of redness and severe pain of the right breast, nausea/vomiting, and "feeling clammy". She notes the redness began to spread to the left breast today. She denies any skin lesions or wounds to the breast, any recent infections, dental work or other procedures. Reports that the day the redness began, she was stung by a bee on her left thigh and this is still quite red and painful. Also notes swelling of her face which began around the same time. Of note, earlier this week she began to notice swelling of her lower legs and had labs drawn to evaluate her thyroid and to rule out heart failure as a cause of the swelling. Patient is concerned some of these symptoms are due to tamoxifen she is taking. Allergies Allergy/AdvReac Type Severity Reaction Status Date / Time hydrocodone Allergy Severe HIVES, Verified 07/13/19 13:53 CLOSING OF AIRWAY. CAN TAKE TYLENOL W/ CODEINE ibuprofen Allergy Severe HIVES, Verified 07/13/19 13:53 CLOSING OF AIRWAY lidocaine Allergy Severe Anaphylaxis Verified 07/13/19 13:53 Penicillins Allergy Severe Anaphylaxis Verified 07/13/19 13:53 propoxyphene Allergy Severe ANAPHYLAXIS Verified 07/13/19 13:53 onion Allergy Mild Hives Verified 07/13/19 13:53 clavulanic acid Allergy Unknown UNKNOWN Verified 07/13/19 13:53 oxycodone Allergy Unknown . Verified 07/13/19 13:53 morphine AdvReac Mild NAUSEA AND Verified 07/13/19 13:53 VOMITING Home Medications Home Medications Medication Instructions Recorded Confirmed Type cyanocobalamin (vit B-12) 250 mcg 250 mcg PO DAILY #90 tab 05/06/19 Rx tablet tamoxifen 20 mg tablet 20 mg PO DAILY #30 tab 05/29/19 Rx albuterol sulfate HFA 90 2 puff INHALATION Q4H PRN gm 07/12/19 07/12/19 History mcg/actuation aerosol inhaler Patient History Medical History Anxiety Asthma uses PRN inh 3-4 x wk BRCA positive 1 and 2 Depression Fibrocystic breast disease Heart palpitations sees Dr. Baldwin every 2 years Hypotension 90/60 norm Migraine Family History Mother Family history of reaction to anesthesia N/V. slow to wake Father Family history of diabetes mellitus Family/Other Family history of diabetes mellitus paternal aunts/uncles Father Family hx of colon cancer Grandfather Family hx of colon cancer Son Family history of irritable bowel syndrome has crohn's Social History Preferred Language: Latvian Communication Ability: Effective Transcript Evaluator Required: No Beliefs That Will Affect Care: None Current Living Situation: Significant Other Current Living Situation Comment: Lives with boyfriend Other Information That Helps Us Care for You: No Feels Safe at Home: Yes Safety Concerns: Feels Safe At This Time Smoking Status: Former smoker Tobacco Type: cigarettes ; Cigarettes Per Day: October 2018 ; Do You Dip or Chew Tobacco: No ; Second Hand Exposure: Yes ; Tobacco Cessation Education Requested by Patient: No Hx Alcohol Use: No Hx Substance Use: No Review of Systems Constitutional: + chills and + sweats Integumentary: + erythema (right breast), + breast pain and + breast skin changes; no axillary lymphadenopathy Allergy / Immunological: + problem reported (left thigh bee sting) Physical Exam Constitutional: WD/WN, vitals as above Respiratory: normal respiratory effort; no labored breathing Chest (Breasts): Breast: no breast mass and no axillary mass Additional Comments: bilateral tissue expanders in place. Well healed inframammary incisions. No breast wounds or skin breakdown, no drainage. right breast tender to palpation with erythema superior and medially, with some edema noted. No obvious abscess or fluid collection. Right distribution sales manager does appear slightly malrotated. No capsular contracture noted. Erythema noted in between the breasts as well, but has a sandpaper rash type appearance Skin: + erythema and + scar as per breast exam Psychiatric: A+Ox3, euthymic affect Results & Data Vital Signs (Past 12 Hours) Vital Signs Temp Pulse Resp BP Pulse Ox 07/13/19 13:25 98.8 F 84 20 108/73 98 Laboratory Results Laboratory Tests 07/13/19 07/13/19 13:46 13:46 WBC 6.86 Hgb 13.8 Plt Count 202 Sodium 141 Potassium 3.9 Chloride 108 H Carbon Dioxide 25 BUN 11 Creatinine 0.74 Glucose 88 Albumin 3.6 PG Care Time/CCT Total # of Minutes Spent Total Time Spent with Patient: Total time spent is greater than 50% in coordination of care (as documented) at patient's floor/unit and/or counseling patient: (1) Cellulitis Site of cellulitis: trunk Site of cellulitis of trunk: chest wall Qualified Code(s): L03.313 - Cellulitis of chest wall
[2019-07-13] MEDS ORDERED: ALBUTEROL HFA 8 GM INHALER INH PRN (17:02)
[2019-07-13] MEDS ORDERED: ALUMINUM/MAGNESIUM SUSP 30 ML UDC PO PRN (17:02)
[2019-07-13] MEDS ORDERED: POLYETHYLENE (MIRALAX) 17 GM PACK PO PRN (17:02)
[2019-07-13] MEDS ORDERED: VANCOMYCIN CONSULT ACTIVE PRN (17:02)
[2019-07-13] MEDS ORDERED: MAGNESIUM HYDROXIDE SUSP 30 ML UDC PO PRN (17:02)
[2019-07-13] MEDS ORDERED: MoRPHine SULFATE 2 MG/ML CARP IV PRN (17:02)
--- NOTE | 2019-07-13 17:20 | History & Physical Report ---
Date of Service July 13, 2019 Assessment & Plan (1) Cellulitis of right breast: History of precancerous breast fibrocystic disease Status post bilateral mastectomy and placement of breast expansion Cellulitis at the site of reconstructed right breast, to lesser extent left breast Admit to [facility] [place] Consult plastic surgeon Dr. Beebe appreciated who recommended aggressive antibiotic management, also requested ultrasound to the reconstructed breast Patient does have anaphylactic allergy to penicillin but tolerated cephalosporin in the past We will place her on a regimen of cefepime/Vanco Lactobacillus to prevent C. 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 A decision was made to do a total bilateral mastectomy done by Dr. Dow in 04/07/2019. Procedure was uneventful status post placement of expansion at the same time. For the last 3 days patient has been having intermittent fever, chills, clumsiness. Also has been having intermittent nausea and vomiting which she was not able to attribute fully to infection but thought it might be secondary to tamoxifen. She noticed evolving erythematous swelling on the right breast. Which became tender and swollen. No discharge. She noticed also slight erythema on the left breast so she came to the ED for further evaluation. Patient has a strong history of breast cancer in her mother, and her uncle from mother side Former smoker, quit smoking March 2019. Has history of hysterectomy due to endometriosis but still have her ovaries. Primary Care Provider: Jian Hatch MD Allergies Allergy/AdvReac Type Severity Reaction Status Date / Time hydrocodone Allergy Severe HIVES, Verified 07/13/19 13:53 CLOSING OF AIRWAY. CAN TAKE TYLENOL W/ CODEINE ibuprofen Allergy Severe HIVES, Verified 07/13/19 13:53 CLOSING OF AIRWAY lidocaine Allergy Severe Anaphylaxis Verified 07/13/19 13:53 Penicillins Allergy Severe Anaphylaxis Verified 07/13/19 13:53 propoxyphene Allergy Severe ANAPHYLAXIS Verified 07/13/19 13:53 onion Allergy Mild Hives Verified 07/13/19 13:53 clavulanic acid Allergy Unknown UNKNOWN Verified 07/13/19 13:53 oxycodone Allergy Unknown . Verified 07/13/19 13:53 morphine AdvReac Mild NAUSEA AND Verified 07/13/19 13:53 VOMITING Home Medications Home Medications Medication Instructions Recorded Confirmed Type cyanocobalamin (vit B-12) 250 mcg 250 mcg PO DAILY #90 tab 05/06/19 Rx tablet tamoxifen 20 mg tablet 20 mg PO DAILY #30 tab 05/29/19 Rx albuterol sulfate HFA 90 2 puff INHALATION Q4H PRN gm 07/12/19 07/12/19 History mcg/actuation aerosol inhaler Past Med/Surg History Medical History Anxiety Asthma uses PRN inh 3-4 x wk BRCA positive 1 and 2 Depression Fibrocystic breast disease Heart palpitations sees Dr. Baldwin every 2 years Hypotension 90/60 norm Migraine Family History Mother Family history of reaction to anesthesia N/V. slow to wake Father Family history of diabetes mellitus Family/Other Family history of diabetes mellitus paternal aunts/uncles Father Family hx of colon cancer Grandfather Family hx of colon cancer Son Family history of irritable bowel syndrome has crohn's Social History Preferred Language: Romanian Communication Ability: Effective Branch Administrator Required: No Beliefs That Will Affect Care: None Current Living Situation: Significant Other Current Living Situation Comment: Lives with boyfriend Other Information That Helps Us Care for You: No Feels Safe at Home: Yes Safety Concerns: Feels Safe At This Time Smoking Status: Former smoker Tobacco Type: cigarettes ; Cigarettes Per Day: October 2018 ; Do You Dip or Chew Tobacco: No ; Second Hand Exposure: Yes ; Tobacco Cessation Education Requested by Patient: No Hx Alcohol Use: No Hx Substance Use: No Review of Systems Review of Systems: Review of system Constitutional: Positive for fever and chills Eyes: no blurring of vision / no eye pain / no discharge / no redness ENT: no hearing loss / no epistaxis /no swallowing problems Respiratory: no cough / no wheezing / no SOB / no hemoptysis Cardiovascular: no Chest pain / no lower extremity edema / no palpitation Abdomen: no pain / no nausea / no vomiting / no constipation Musculoskeletal: no joint pain / no muscle pain / no joint swelling Genitourinary: no dysuria / no incontinence / no urinary retention Neurologic: no focal weakness / no numbness/tingling / no ataxia Psychiatric: no depression symptoms / no anxiety / no insomnia Endocrine: no excessive thirst / no excessive urination Hematologic: no abnormal bleeding / no bruising / no LN swelling Skin: Tenderness swelling and erythema in the right breast and to lesser extent left breast Physical Exam Physical Exam: Physical examination General patient appears to be comfortable, not in acute distress HEENT: Atraumatic , normocephalic /no jaundice /no pallor /anicteric /no dry mucous membrane /normal external ear inspection Neck: Supple /no swelling /central trach Heart: S1/S2 normal/regular rate and rhythm/no gallop /no rub /no murmur Lungs: Clear to auscultation bilaterally/normal chest with expansion/no rhonchi/no rales/no wheezing/no use of accessory muscles of respiration Abdomen: Soft/nontender/no guarding/no rebound/no organomegaly/no pulsatile mass Musculoskeletal: No swelling/no edema/no tenderness/normal range of motion Neuro exam: Awake alert oriented 3/cranial nerves II through XII appear to be intact/sensation intact/moves all extremities/no abnormal movements Psychiatric evaluation: No depressed mood/normal affect Skin: Right reconstructed breast appears to be swollen/tender/erythematous, left breast has much less erythema Extremity: Normal pulse/no pitting edema/no clubbing or cyanosis Endocrine/lymphatic: No obvious lymphadenopathy /no lymphedema Results & Data Vital Signs (Past 12 Hours) Vital Signs Temp Pulse Resp BP Pulse Ox 07/13/19 13:25 37.1 C 84 20 108/73 98 Code Status & VTE Plan VTE Prophylaxis Plan VTE Prophylaxis will be ordered: Yes PG Care Time/CCT Total # of Minutes Spent Total Time Spent with Patient: 35 minutes total time spent is greater than 50% in coordination of care (as documented) at patient's floor/unit and/or [facility] patient/family discussion of care with nursing staff (1) Vomiting Nausea presence: unspecified Vomiting Intractability: unspecified Vomiting type: unspecified Qualified Code(s): R11.10 - Vomiting, unspecified
--- NOTE | 2019-07-13 18:28 | Emergency Department Note ---
Entered by Micaela Ayoub acting as a scribe for ED Provider Note CHIEF COMPLAINT: Breast pain HISTORY OF PRESENT ILLNESS: The patient is a 43 year old female who presents to the Emergency Room with complaints of breast pain that started 3 days ago. The patient states that she had breast expanders placed in March and has had no post-operative problems until now. The patient notes that her right breast is red, warm and extremely tender. The patient states that she has been nauseas, vomiting and had an intermittent fevers for 3 days. The patient rates her pain as a 9/10. Pt denies LOC, headache, diaphoresis, visual changes, neck pain, chest pain, breathing difficulties, abdominal pain, back pain, melena, hematochezia, urinary symptoms, numbness, weakness, lymphadenopathy, or other complaints. REVIEW OF SYSTEMS: See HPI for pertinent positives and negatives. A total of ten systems were reviewed and were otherwise negative. PMHx/PSHx: Fibrocystic breast disease, asthma, heart palpitations, anxiety, depression. SOCIAL HISTORY: Patient lives at home. PHYSICAL EXAM: GENERAL: Awake, alert, well-appearing, in no distress HENT: Normocephalic, atraumatic. Oropharynx unremarkable. EYES: PERRL. Normal conjunctiva. Sclera non-icteric. NECK: Inspection normal. Non-tender. Supple. No nuchal rigidity. FROM. No masses. RESPIRATORY: Clear to auscultation. No wheezes. No rales. Normal respiratory effort. CARDIAC: Normal rate. Normal rhythm. No murmurs. No rubs. Extremities warm and well perfused. Pulses equal. No JVD. BREAST: Redness and induration of right breast with tenderness. Minimal redness of left breast. No drainage or discharge. GI: Soft, non-distended. No tenderness to palpation. No rebound or guarding. No masses. RECTAL: Deferred. MUSCULOSKELETAL: Atraumatic. Chest examination reveals no tenderness. The back is symmetrical on inspection without obvious abnormality. There is no CVA tenderness to palpation. No joint edema. LOWER EXTREMITIES: Calves are equal size bilaterally and non-tender. No edema. No discoloration. NEURO: Normal sensorium. No sensory or motor deficits noted. SKIN: No rash or jaundice noted. EMERGENCY DEPARTMENT COURSE: 1333: Past medical records reviewed. The patient was evaluated in room B10, and a complete history and physical examination were performed. 1354: I discussed the patient's case with Dr. Tripathi- Plastic Surgeon. She michi l come see the patient. She asked if we could order an ultrasound, urine nicotine level, IV antibiotics and medical admission. 1537: I discussed the patient's case with Dr. Maria- [facility], Hospitalist. He will evaluate the patient for further management. MEDICAL DECISION MAKING: B10 Triage Nursing notes reviewed and agree them. The patient's history was concerning for swelling and redness of the breast. Differential diagnosis: Etiologies such as cellulitis, DVT, necrotizing fasciitis, abscess, MRSA infection, dermatitis, drug eruption, as well as others were entertained.. Physical examination: The physical examination was consistent with cellulitis ER treatment provided: IV Dilaudid IV Zofran IV daptomycin IV aztreonam On reassessment the patient felt better. Diagnostics interpreted by me: The labs revealed an unremarkable CBC and chemistry panel. Imaging studies: Ultrasound imaging of the breast was ordered at the request of Dr. Tripathi. This is pending. The patient has a cellulitis developing of the right breast. There is an product developer in place The patient has also been having problems with vomiting. This has been a problem with her while on the tamoxifen. Consultation: I did discuss this with her surgeon, Dr. Tripathi. She presented to the ER and evaluated the patient. She agreed with IV antibiotics and further management in the hospital. She requested a nicotine and urine test. A consultation was placed with the hospitalist. The case was discussed and diagnostics were reviewed. The patient was evaluated in the ER for further treatment. IMPRESSION: Cellulitis of right breast, vomiting PLAN: Evaluated by Hospitalist The scribe's documentation has been prepared under my direction and personally reviewed by me in its entirety. I confirm that the note above accurately reflects all work, treatment, procedures, and medical decision making performed by me. Impression & Plan Cellulitis of right breast, Vomiting Past Med/Surg History Medical History Anxiety Asthma uses PRN inh 3-4 x wk BRCA positive 1 and 2 Depression Fibrocystic breast disease Heart palpitations sees Dr. Baldwin every 2 years Hypotension 90/60 norm Migraine Family History Mother Family history of reaction to anesthesia N/V. slow to wake Father Family history of diabetes mellitus Family/Other Family history of diabetes mellitus paternal aunts/uncles Father Family hx of colon cancer Grandfather Family hx of colon cancer Son Family history of irritable bowel syndrome has crohn's Social History Preferred Language: Pashto Communication Ability: Effective Operations And Maintenance Technican Required: No Beliefs That Will Affect Care: None Current Living Situation: Significant Other Current Living Situation Comment: Lives with boyfriend Other Information That Helps Us Care for You: No Feels Safe at Home: Yes Safety Concerns: Feels Safe At This Time Smoking Status: Former smoker Tobacco Type: cigarettes ; Cigarettes Per Day: October 2018 ; Do You Dip or Chew Tobacco: No ; Second Hand Exposure: Yes ; Tobacco Cessation Education Requested by Patient: No Hx Alcohol Use: No Hx Substance Use: No Results & Data Vital Signs Vital Signs - 24 hr 07/13/19 13:25 Temperature 37.1 C Temperature Source Oral Sepsis Recent Fever Within 48 Hours No Sepsis New/Unexplained Change in Mental Status No Sepsis Action Taken by Nursing No Action Required Pulse Rate 84 Respiratory Rate 20 Respiratory Effort / Characteristics Non-Labored Respiratory Depth Normal Blood Pressure 108/73 Blood Pressure Mean 84 Blood Pressure Position Sitting Pulse Oximetry 98 Oxygen Delivery Method Room Air Home Medications Current Medication List: was personally reviewed by me Laboratory Data Attestation: I reviewed the patient's lab results. Result diagrams: 07/13/19 13:46 07/13/19 13:46 Lab Results 07/13/19 07/13/19 Range/Units 13:46 13:46 WBC 6.86 (4.8-10.8) K/uL RBC 4.52 (4.2-5.4) M/uL Hgb 13.8 (12.0-16.0) g/dL Hct 40.3 (37-47) % MCV 89.2 (80-100) fL MCH 30.5 (25-34) pg MCHC 34.2 (32-36) g/dL RDW Std Deviation 40.9 (36.4-46.3) fL RDW Coeff of Magdiel 12.7 (11.5-14.5) % Plt Count 202 (130-400) K/uL MPV 9.2 (7.4-10.4) fL Immature Gran % (Auto) 0.1 % Neut % (Auto) 64.9 % Lymph % (Auto) 24.8 % [place] % (Auto) 8.6 % Eos % (Auto) 1.2 % Baso % (Auto) 0.4 % Immature Gran # (Auto) 0.01 (0.00-0.02) K/uL Neut # (Auto) 4.45 (1.4-6.5) K/uL Lymph # (Auto) 1.70 (1.2-3.4) K/uL [place] # (Auto) 0.59 (0.11-0.59) K/uL Eos # (Auto) 0.08 (0-0.5) K/uL Baso # (Auto) 0.03 (0-0.2) K/uL Sodium 141 (136-145) mmol/L Potassium 3.9 (3.5-5.1) mmol/L Chloride 108 H (98-107) mmol/L Carbon Dioxide 25 (21-32) mmol/L Anion Gap 8.0 (3-11) BUN 11 (7-18) mg/dl Creatinine 0.74 (0.6-1.2) mg/dl Est Cr Clr Drug Dosing 85.4 ml/min Est GFR ( Amer) 115.0 Est GFR (Non-Af Amer) 99.2 BUN/Creatinine Ratio 15.1 (10-20) Glucose 88 (70-99) mg/dl Calcium 8.4 L (8.5-10.1) mg/dl Total Bilirubin 0.6 (0.2-1) mg/dl AST 9 L (15-37) U/L ALT 14 (12-78) U/L Alkaline Phosphatase 48 (45-117) U/L Total Protein 6.8 (6.4-8.2) gm/dl Albumin 3.6 (3.4-5.0) gm/dl Globulin 3.2 (2.5-4.0) gm/dl Albumin/Globulin Ratio 1.1 (0.9-2) Administered Medications Hydromorphone HCl (Dilaudid) 0.5 mg IV Q15M PRN PRN Reason: Pain Stop: 07/27/19 14:07 Last Admin: 07/13/19 14:43 Dose: 0.5 mg Documented by: [id number] Discontinued Medications Sodium Chloride (Nss 1000ml) 1,000 mls @ 999 mls/hr IV .Q1H1M CHATO Stop: 07/13/19 14:45 Last Infusion: 07/13/19 16:04 Dose: 0 mls/hr Documented by: [id number] Admin: 07/13/19 14:12 Dose: 999 mls/hr Documented by: [id number] Daptomycin 275 mg/ Syringe 5.5 mls @ 2.75 mls/min IV NOW ONE; Protocol Stop: 07/13/19 14:09 Last Admin: 07/13/19 15:04 Dose: 2.75 mls/min Documented by: [id number] Aztreonam 2,000 mg/ Dextrose 110 mls @ 100 mls/hr IV NOW STA; Protocol Stop: 07/13/19 15:13 Last Infusion: 07/13/19 16:04 Dose: 0 mls/hr Documented by: [id number] Admin: 07/13/19 15:04 Dose: 100 mls/hr Documented by: [id number] Ondansetron HCl (Zofran) 4 mg IV NOW STA Stop: 07/13/19 13:35 Last Admin: 07/13/19 14:12 Dose: 4 mg Documented by: [id number] Ondansetron HCl (Zofran) 4 mg IV NOW STA Stop: 07/13/19 14:09 Last Admin: 07/13/19 14:43 Dose: 4 mg Documented by: [id number] Blood Pressure Blood Pressure Findings: Normal blood pressure Blood Pressure Disposition: did not require urgent referral Discharge Plan Visit Data Chief Complaint: Breast Pain/Problems Stated Complaint: BREAST SPACER CAUSING PAIN - VOMITING ED Provider: Franco Trujillo Discharge Problem: Cellulitis of right breast, Vomiting Patient Disposition: Being Evaluated by Hospitalist Discharge Instructions Interventions: ED Discharge Assessment Last Done: 07/13/19 17:55 Forms Stand Alone Forms: [email or web address] Prescriptions Prescriptions: No Action Vitamin B-12 250 mcg tablet 250 mcg PO DAILY Qty: 90 RF: 3 tamoxifen 20 mg tablet 20 mg PO DAILY Qty: 30 RF: 2 albuterol sulfate [Ventolin HFA] 90 mcg/actuation HFA aerosol inhaler 2 puff INHALATION Q4H PRN (Reason: cough and wheezing) RF: 0 Referrals Referrals: Jian Hatch MD [Primary Care Provider] - Discharge Problem: Vomiting Qualifiers: Vomiting type: unspecified Vomiting Intractability: unspecified Nausea presence: unspecified Qualified Code(s): R11.10 - Vomiting, unspecified The scribe's documentation has been prepared under my direction and personally reviewed by me in its entirety. I confirm that the note above accurately reflects all work, treatment, procedures, and medical decision making performed by me.
--- NOTE | 2019-07-13 18:41 | Ultrasound Report ---
US breast RT limited CLINICAL HISTORY: 43 years-old Female presenting with has child and adolescent psychiatrist placed in March 2019, right breast pain, fever, eval for abscess. TECHNIQUE: Real-time grayscale ultrasound imaging of the right breast was performed for a focused nasima luation at the site of clinical concern. Color Doppler ultrasound imaging was also performed. COMPARISON: Ultrasound and mammography from 01/13/2019. FINDINGS: Tissue child and adolescent psychiatrist in place new since prior mammogram. Fluid noted along the superficial aspect of the s pacer, which is anechoic and measures 1.2 x 5.5 x 1.6 cm. This is at the 9:00 position. There is a se parate component along the 3:00 position of the right breast which is more complex with internal sept ations measuring 1.6 x 6.0 x 2.8 cm. IMPRESSION: 1. Multifocal collections along the tissue child and adolescent psychiatrist both medially and laterally in immediate contact with the superficial aspect of the spacer. Sterility of these collections cannot be confirmed though postoperative seromas and/or hematomas are not unexpected. Breast surgical consultation advised. Dev elopment of an infection in these collections would be atypical given the time course of the child and adolescent psychiatrist placement assuming no recent intervention. Electronically signed by: Segundo Lepe M.D. 07/13/2019 6:39 PM
[2019-07-13] MEDS ORDERED: VANCOMYCIN HCL 1,250 MG in SODIUM CHLORIDE 0.9% 250 ML IV STA (18:55)
--- NOTE | 2019-07-13 19:10 | Pharmacy Report ---
Pharmacy Abx Dose Short Note - Date of Service July 13, 2019 - Assessment & Plan Assessment 43 year old F receiving vanco/cefepime for treatment of cellulitis. Has tolerated cephalosporins previously. Anaphylactic response to PCNS. Plan Vancomycin * Vanco 1250mg (19mg/kg) x1 * then vanco 1g (15mg/kg) q10 * trough ordered for 07/15/19 @0930, reflective of Css * goal trough until BRIANA or C/s's result will be 15-20 Pharmacy will continue to follow and will adjust dose/frequency as necessary. Thank you.
[2019-07-13] MEDS: HYDROmorphone INJ 1 MG/ML SYRINGE IV PRN ×2 (19:27→23:25)
[2019-07-13] MEDS: CEFEPIME 2,000 MG in SYRINGE 7.5 ML IV SCH (21:29)
[2019-07-13] MEDS: HEPARIN SOD 5,000 UNIT/0.5 ML VIAL SQ SCH (21:31)
[2019-07-13] MEDS: ONDANSETRON INJ 2 MG/ML 2 ML VIAL IV PRN (21:48)
[2019-07-14] MEDS: HYDROmorphone INJ 0.5 MG/0.5 ML SYR IV PRN (03:29)
[2019-07-14] MEDS: VANCOMYCIN HCL 1,000 MG in SODIUM CHLORIDE 0.9% 250 ML IV SCH ×2 (03:30→13:38)
[2019-07-14] MEDS: CEFEPIME 2,000 MG in SYRINGE 7.5 ML IV SCH ×3 (03:30→19:44)
[2019-07-14 05:38] LABS: Basophils # (auto) 0.03 K/uL (0-0.2); Basophils % (auto) 0.5 %; Eosinophils # (auto) 0.17 K/uL (0-0.5); Eosinophils % (auto) 2.6 %; Hematocrit (blood only) 35.1 % (37-47); Hemoglobin 11.6 g/dL (12.0-16.0); Immature Granulocytes # (auto) 0.01 K/uL (0.00-0.02); Immature Granulocytes % (auto) 0.2 %; Lymphocytes # (auto) 3.04 K/uL (1.2-3.4); Lymphocytes % (auto) 46.2 %; Mean Corpuscular Hemoglobin 29.7 pg (25-34); Mean Corpuscular Volume 89.8 fL (80-100); Mean Platelet Volume 9.5 fL (7.4-10.4); Monocytes # (auto) 0.63 K/uL (0.11-0.59); Monocytes % (auto) 9.6 %; Neutrophils % (auto) 40.9 %; Platelet Count 177 K/uL (130-400); RDW Coefficient of Variation 12.8 % (11.5-14.5); RDW Standard Deviation 41.7 fL (36.4-46.3); Red Blood Count 3.91 M/uL (4.2-5.4); White Blood Count 6.58 K/uL (4.8-10.8)
[2019-07-14] MEDS: HEPARIN SOD 5,000 UNIT/0.5 ML VIAL SQ SCH ×3 (05:40→21:43)
[2019-07-14 06:14] LABS: Albumin Level 2.9 gm/dl (3.4-5.0); BUN Creatinine Ratio 17.8 (10-20); Calcium 7.6 mg/dl (8.5-10.1); Creatinine Clr Calc Pharmacy 90.3 ml/min; Est GFR (Non-African American) 106.1; Potassium 3.8 mmol/L (3.5-5.1)
[2019-07-14 06:17] LABS: Bilirubin,Total 0.4 mg/dl (0.2-1); Globulin 2.8 gm/dl (2.5-4.0); Total Protein 5.7 gm/dl (6.4-8.2)
[2019-07-14] MEDS: CYANOCOBALAMIN 500 MCG TABLET (VITAMIN B-12) PO SCH (07:59)
[2019-07-14] MEDS: HYDROmorphone INJ 1 MG/ML SYRINGE IV PRN ×3 (07:59→19:43)
[2019-07-14] MEDS: TAMOXIFEN CITRATE 10 MG TABLET PO SCH (08:00)
[2019-07-14] MEDS: LACTOBACILLUS ACIDOPHILUS 1 GM PACK PO SCH ×3 (08:00→16:40)
[2019-07-14] MEDS: ONDANSETRON INJ 2 MG/ML 2 ML VIAL IV PRN ×3 (08:20→20:44)
--- NOTE | 2019-07-14 09:16 | Surgery Progress Note ---
Date of Service July 14, 2019 Assessment & Plan (1) Cellulitis of right breast: Minimal improvement in the appearance of the right breast, if any, at this point in time. However, patient does remain afebrile with normal white count. Discussed with patient possible aspiration of the collection versus return to the OR for washout, possible placement of a new webfed offset press operator. Case was discussed with Dr. Mcarthur from radiology regarding whether CT scan to evaluate further for abscess would be of benefit, versus possible needle aspiration of fluid. He feels aspiration would be feasible, would not be able to place a drain due to patient's local anesthesia allergy. Since there is risk of introducing contaminants into the pocket with aspiration, we will plan to hold off for at least 24 hours on aspiration to see whether there is any improvement in the erythema of the breast. I will return later today to discuss plans for aspiration with the patient. (2) Breast implant status: (3) Encounter for breast reconstruction following mastectomy: Danie Tiwari is seen today at bedside. Reports she was unable to sleep last evening. Pain persists in her right breast. She has received a dose of daptomycin and aztreonam, 2 doses of vancomycin and cefepime. Ultrasound was performed last evening, showing 2 fluid collections in the right breast. Afebrile since presentation. Review of Systems Integumentary: + breast skin changes Physical Exam Constitutional: WD/WN, vitals as above Chest (Breasts): Additional Comments: bilateral tissue expanders in place. Well healed inframammary incisions. No breast wounds or skin breakdown, no drainage. right breast tender to palpation with erythema superior and medially, with some edema noted. Right webfed offset press operator does appear slightly malrotated. No capsular contracture noted. Erythema noted yesterday in between the breasts has improved. No improvement in erythema of right breast. Skin: no rashes, warm and dry Psychiatric: A+Ox3, euthymic affect Results & Data Vital Signs (Past 12 Hours) Vital Signs Temp Pulse Resp BP Pulse Ox 07/14/19 07:28 98.1 F 63 16 92/55 L 99 07/13/19 23:01 98.2 F 61 16 105/69 98 Ultrasound right breast 07/13 FINDINGS: Tissue webfed offset press operator in place new since prior mammogram. Fluid noted along the superficial aspect of the spacer, which is anechoic and measures 1.2 x 5.5 x 1.6 cm. This is at the 9:00 position. There is a separate component along the 3:00 position of the right breast which is more complex with internal septations measuring 1.6 x 6.0 x 2.8 cm. IMPRESSION: 1. Multifocal collections along the tissue webfed offset press operator both medially and laterally in immediate contact with the superficial aspect of the spacer. Sterility of these collections cannot be confirmed though postoperative seromas and/or hematomas are not unexpected. Breast surgical consultation advised. Development of an infection in these collections would be atypical given the time course of the webfed offset press operator placement assuming no recent intervention. Laboratory Tests 07/14/19 05:27 WBC 6.58 Hgb 11.6 L PG Care Time/CCT Total # of Minutes Spent Total Time Spent with Patient: Total time spent is greater than 50% in coordination of care (as documented) at patient's floor/unit and/or counseling patient:
--- NOTE | 2019-07-14 10:01 | Hospitalist Progress Note ---
Date of Service July 14, 2019 Assessment & Plan (1) Cellulitis of right breast: Patient has history of precancerous (+BRCA 1/BRCA 2) breast fibrocystic disease s/p multiple biopsies and eventual bilateral mastectomy by Dr. Dow and breast reconstruction by Dr. Tripathi March 2019- planned for rn advice exchange/implants [address] Tripathi. Breast Cellulitis s/p bilateral mastectomy - Right Breast >> Left. Continue to monitor on MedSurg Erythema improving- WBC wnl, patient continues to remain afebrile. Ultrasound of Right Breast 07/13 reviewed- shows two fluid collections in right breast Possible CT for further evaluation of possible abscess with possible aspiration tomorrow pending improvement of erythema. Dr. Tripathi on consult- appreciate recs Continue IV Cefepime/Vanco- patient tolerated cephalosporins in past despite listed allergy Lactobacillus to prevent C. difficile Blood cultures pending Pain management with Dilaudid - patient has allergy to oxycodone and history of elevated LFTs (2) Vomiting: Zofran as needed for N/V Phenergan x 1 now (3) H/O: hysterectomy: History of hysterectomy due to endometriosis. Follows with Cami Payne PA-C as outpatient Given retained ovaries, will need to continue tamoxifen. (4) DVT prophylaxis: SCDs, SQ Heparin Supervising Physician Co-Signing Physician Notes Attending Attestation: Pt seen/examined, chart reviewed, care plan d/w RYANN Hodgson. I agree w/ the foster components of her documentation. Pt's main complaint is that of breast pain. Appetite is poor. VSS, no fever gen - NAD heart - RRR, s1 s2 lungs - CTA b/l abd - soft NT ND BS+ ext - mild edema b/l; LLE>RLE A/P: 1. breast cancer s/p b/l mastectomy earlier this summer. 2. tamoxifen use since April 2019. 3. right breast cellulitis, ?abscess/infected seroma - possible I/D tomorrow. Cont cefepime/vanco. Appreciate Dr Tripathi's recommendations. Pain control. Leonid Murdock MD Subjective Patient seen this morning at bedside. She states she is still continuing to be in a significant amount of pain of both breasts, left significantly more than right. She states her pain has been decreased from 8/10 with administration of Dilaudid. She has had issues in the past with elevated liver enzymes after starting tamoxifen, so she avoids products with acetaminophen. The patient states she had been seen by Dr. Tripathi this morning, with discussion of aspiration of fluid collection and whether a CT is needed for further evaluation. The patient has concerns for local anestheisia due to multiple severe adverse reactions with lidocaine and other narcotics in the past. The patient does continue to have nausea despite Zofran administration x1 this AM, which she denies presence of hematochezia or coffee-ground appearance. Of note, she does also state she has had some new swelling in her legs since her procedure and initiation of tamoxifen, which she believes may been the cause, whether from heart failure or thyroid function. TSH was WNL on admission. She also states her blood pressure normally runs low, in the 90s/100s systolically. The patient denies any chest pain, shortness of breath, constipation, diarrhea. She had fevers and chills 3 days prior to admission, but denies them currently and has been afebrile during admission. Review of Systems Review of Systems: All systems reviewed & are unremarkable except as noted in HPI & below Constitutional: + anorexia (due to being nauseous this AM); no fever and no chills Eyes: no diplopia, no dry eyes and no eye pain Ear, Nose, Mouth, Throat: no tinnitus, no dizziness and no dysphagia Respiratory: + wheezing (hx asthma, uses albuterol prn); no cough, no dyspnea and no hemoptysis Cardiovascular: + edema (R>L lower extremity); no chest pain, no chest pain with activity and no syncope Additional Comments: Breast Pain bilaterally, Right >> Left Gastrointestinal: + nausea and + vomiting (x1 emesis this AM); no abdominal pain, no heartburn, no coffee ground emesis and no hematemesis Genitourinary: no dysuria, no urinary hesitancy and no urinary urgency Musculoskeletal: as per Subjective / HPI Integumentary: + breast pain and + breast skin changes (erythema) Bilateral expanders in place Neurologic: as per Subjective / HPI Endocrine: hair thinning Physical Exam Constitutional: well developed, well nourished and cooperative Eyes: PERRL, conjunctivae normal, anicteric sclerae ENMT: external ear and nose normal, oropharynx normal Neck: trachea midline, no thyromegaly Respiratory: normal respiratory effort; no respiratory distress, does not use accessory muscles and no cough Auscultation: + wheezes (right upper end expiratory wheezes appreciated) Cardiovascular: RRR, no murmur, no edema Chest (Breasts): Additional Comments: Erythema of breasts- right breast with periareolar erythema, moreso medially and superiorly. Tender to palpation of breasts bilaterally, right >> left. Erythema between breasts improved from yesterday. Gastrointestinal (Abdomen): normal bowel sounds, soft, nontender, no hepatosplenomegaly Musculoskeletal: no cyanosis or clubbing, extremities motor strength 5/5 Skin: Erythema of breasts- right breast with periareolar erythema, moreso medially and superiorly. Tender to palpation of breasts bilaterally, right >> left. Erythema between breasts improved from yesterday. Neurologic: awake Speech / Cognition: no expressive aphasia Motor/Sensory: no sensory deficit Cranial Nerves: PERRL Psychiatric: A+Ox3, euthymic affect Results & Data Vital Signs (Past 12 Hours) Vital Signs Temp Pulse Resp BP Pulse Ox 07/14/19 07:28 36.7 C 63 16 92/55 L 99 07/13/19 23:01 36.8 C 61 16 105/69 98 PG Care Time/CCT Total # of Minutes Spent Total Time Spent with Patient: Total time spent is greater than 50% in coordination of care (as documented) at patient's floor/unit and/or counseling patient: 45 (1) Vomiting Nausea presence: unspecified Vomiting Intractability: unspecified Vomiting type: unspecified Qualified Code(s): R11.10 - Vomiting, unspecified
[2019-07-14] MEDS ORDERED: PROMETHAZINE HCL 6.25 MG in SODIUM CHLORIDE 0.9% 50 ML IV STA (10:23)
--- NOTE | 2019-07-14 18:54 | Surgery Progress Note ---
Date of Service July 14, 2019 Assessment & Plan (1) Cellulitis: Reviewed plan with patient. Plan is for needle guided aspiration tomorrow in radiology. She will discuss local anesthesia reaction with radiologist; she understands drain unlikely to be placed due to local anesthesia concerns. Based on findings on aspiration (ie wilfredo pus), may proceed to OR on Sunday for washout, exchange or removal. If clinical response continues to improve after aspiration, would consider proceeding with elective implant exchange. (2) Breast implant status: (3) Encounter for breast reconstruction following mastectomy: Subjective Patient seen again today in followup. She reports still experiencing flu like symptoms and breast pain, but notes the redness is decreasing on the right, is gone on the left, and the right breast feels softer. Physical Exam Physical Exam: right breast softer with less erythema, no erythema right breast Results & Data Vital Signs (Past 12 Hours) Vital Signs Temp Pulse Resp BP Pulse Ox 07/14/19 15:04 98.4 F 68 16 108/65 95 07/14/19 07:28 98.1 F 63 16 92/55 L 99 Laboratory Results blood cx x2 no growth 24 hours PG Care Time/CCT Total # of Minutes Spent Total Time Spent with Patient: Total time spent is greater than 50% in coordination of care (as documented) at patient's floor/unit and/or counseling patient: (1) Cellulitis Site of cellulitis: trunk Site of cellulitis of trunk: chest wall Qualified Code(s): L03.313 - Cellulitis of chest wall
[2019-07-14] MEDS: PROMETHAZINE HCL 12.5 MG in SODIUM CHLORIDE 0.9% 50 ML IV PRN (22:44)
[2019-07-15] MEDS: VANCOMYCIN HCL 1,000 MG in SODIUM CHLORIDE 0.9% 250 ML IV SCH ×3 (00:10→15:51)
[2019-07-15] MEDS: CEFEPIME 2,000 MG in SYRINGE 7.5 ML IV SCH ×3 (04:49→21:36)
[2019-07-15] MEDS: HEPARIN SOD 5,000 UNIT/0.5 ML VIAL SQ SCH ×3 (04:58→21:35)
--- NOTE | 2019-07-15 08:23 | Surgery Progress Note ---
Date of Service July 15, 2019 Assessment & Plan (1) Cellulitis: Reviewed plan with patient. Plan is for needle guided aspiration this am in radiology. Based on findings on aspiration (ie wilfredo pus), may proceed to OR on Sunday for washout with exchange or removal. If clinical response continues to improve after aspiration, would consider proceeding with elective implant exchange. (2) Breast implant status: (3) Encounter for breast reconstruction following mastectomy: Subjective Patient seen this am at bedside. No fevers overnight. Flu like symptoms are improving, the redness is decreasing on the right, is gone on the left, and the right breast feels softer. Physical Exam Constitutional: WD/WN, vitals as above Respiratory: normal respiratory effort; no labored breathing Chest (Breasts): Breast: no breast mass and no axillary mass Additional Comments: bilateral tissue expanders in place. Well healed inframammary incisions. No breast wounds or skin breakdown, no drainage. right breast less tender to palpation with erythema superior and medially, with some edema noted. Right business support liaison does appear slightly malrotated. No capsular contracture noted. Skin: no rashes, warm and dry + erythema and + scar Psychiatric: A+Ox3, euthymic affect Results & Data Vital Signs (Past 12 Hours) Vital Signs Temp Pulse Resp BP Pulse Ox 07/15/19 07:25 98.4 F 72 16 90/57 L 98 07/14/19 23:25 98.8 F 91 H 18 117/73 100 07/14/19 22:50 98.4 F 86 18 123/80 100 Blood cx negative x2 PG Care Time/CCT Total # of Minutes Spent Total Time Spent with Patient: Total time spent is greater than 50% in coordination of care (as documented) at patient's floor/unit and/or counseling patient: (1) Cellulitis Site of cellulitis: trunk Site of cellulitis of trunk: chest wall Qualified Code(s): L03.313 - Cellulitis of chest wall
[2019-07-15] MEDS: CYANOCOBALAMIN 500 MCG TABLET (VITAMIN B-12) PO SCH (08:39)
[2019-07-15] MEDS: TAMOXIFEN CITRATE 10 MG TABLET PO SCH (08:39)
[2019-07-15] MEDS: LACTOBACILLUS ACIDOPHILUS 1 GM PACK PO SCH ×3 (08:39→16:38)
[2019-07-15] MEDS: HYDROmorphone INJ 1 MG/ML SYRINGE IV PRN ×4 (08:49→22:28)
[2019-07-15] MEDS: PROMETHAZINE HCL 12.5 MG in SODIUM CHLORIDE 0.9% 50 ML IV PRN ×3 (08:49→22:55)
[2019-07-15] MEDS ORDERED: VANCOMYCIN TROUGH ONE (09:30)
--- NOTE | 2019-07-15 10:10 | Ultrasound Report ---
ULTRASOUND GUIDED ASPIRATION OF RIGHT BREAST FLUID COLLECTION CLINICAL HISTORY: fluid collection right breast. COMPARISON STUDY: Right breast ultrasound July 13, 2019. PROCEDURE: Sonography of the right breast demonstrated the spacer with adjacent fluid collection. Thi s was targeted for aspiration. The procedure, Versed and benefits were discussed with the patient inc luding the risk of bleeding, infection and injury to the spacer. Patient agreed to the procedure and informed written consent was obtained. The procedure was performed by Dr. Mcarthur following a timeo ut. Skin was prepped and draped in sterile fashion. No local anesthetic was utilized giving severe al lergy. A 20-gauge needle was directed into the fluid. 10 cc of yellowish, minimally cloudy fluid was aspirated and sent to the laboratory for analysis. The needle was withdrawn. The patient tolerated th e procedure well and no complications were evident. IMPRESSION: Successful ultrasound guided aspiration of 10 cc of yellowish, only minimally cloudy flu id from a right breast fluid collection. Electronically signed by: Enrico Mcarthur M.D. 07/15/2019 10:08 AM
--- NOTE | 2019-07-15 11:20 | Hospitalist Progress Note ---
Date of Service July 15, 2019 Assessment & Plan (1) Cellulitis of right breast: * Improving- * Patient has history of precancerous (+BRCA 1/BRCA 2) breast fibrocystic disease s/p multiple biopsies and eventual bilateral mastectomy by Dr. Dow and breast reconstruction by Dr. Tripathi March 2019- planned for glass frame fitter exchange/implants [address] Tripathi. * Breast Cellulitis s/p bilateral mastectomy - Right Breast >> Left. * Continue to monitor on MedSurg * Erythema improving- WBC wnl, patient continues to remain afebrile. * Ultrasound of Right Breast 07/13 reviewed- shows two fluid collections in right breast * Subsequent Ultrasound Guided Aspiration 07/15 with 10cc yellowish, minimally clouded fluid * Dr. Tripathi on consult- appreciate input- possible OR tomorrow for washout with exchange vs removal of expanders * Continue IV Cefepime/Vanco- patient tolerated cephalosporins in past despite listed allergy * Lactobacillus to prevent C. 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 * Follows with Cami Payne PA-C as outpatient- patient still has ovaries and was told she will be on tamoxifen for a minimum of 2 years. * Continue tamoxifen. (5) B12 deficiency: * Per patient- chronic- on B12 supplementation * Continue B12 (6) DVT prophylaxis: * SCDs * SQ Heparin Supervising Physician Co-Signing Physician Notes Attending Attestation - Chart reviewed in detail, care plan d/w RYANN Hodgson. I agree w/ the foster components of her documentation. I did not personally examine the patient at the bedside today. The following are noted -- 1. negative LLE doppler for DVT 2. c/o chest pain, pleuritic pain, palpitations - and inconsistent use of heparin SC 3. s/p aspiration of right breast with 10cc fluid obtained - gram stain negati ve for pathogens With respect to #2 - low threshold for w/u for PE. #3 - possible OR tomorrow with Dr Tripathi for removal of glass frame fitter. Leonid Murdock MD Subjective Patient seen this morning after aspiration of right breast cyst by radiology. Patient premedicated for pain and nausea prior to procedure. She states she had yellowish/slightly cloudy drainage during the procedure. She states her current pain is tolerable, but notes she just received Dilaudid within the past thirty minutes. The patient states she is continuing to feel nauseous. She states x1 dose of Phenergan helped yesterday, but through the night after receiving Zofran she was ill and had multiple bouts of emesis but denies hematemesis or coffee-ground appearance. The patient received Phenergan again this morning, which has provided the patient relief. She is also having discomfort of her left leg. She states since undergoing these procedures and starting the tamoxifen she has noticed more swelling of the left leg, but today it is more swollen than usual compared to baseline and it is sore. 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 She has also been having some chest pain with palpitations that she states she had ongoing for about an hour last night. Today, she does have occasional pains with inspiration. The denies any recent travel, immobilization or history of blood clots. Review of Systems Constitutional: + anorexia (due to being nauseous this AM); no fever and no chills Respiratory: + wheezing (hx asthma, uses albuterol prn); no cough, no dyspnea and no hemoptysis Cardiovascular: + chest pain (intermittent, with inspiration), + palpitations (occassionally feels like heart is beating loudly- states hx of venous hum and occassional associated symptoms in the past) and + edema (R>L lower extremity); no chest pain with activity and no syncope Additional Comments: Breast Pain bilaterally, Right >> Left Gastrointestinal: + nausea and + vomiting (overnight); no abdominal pain, no coffee ground emesis and no hematemesis Musculoskeletal: as per Subjective / HPI Integumentary: + breast pain and + breast skin changes (erythema) Bilateral expanders in place Neurologic: as per Subjective / HPI Endocrine: hair thinning Physical Exam Constitutional: well developed, well nourished and cooperative; no acute distress Eyes: PERRL, conjunctivae normal, anicteric sclerae Neck: trachea midline, no thyromegaly Respiratory: normal respiratory effort; no respiratory distress, no labored breathing, does not use accessory muscles and no cough Auscultation: + wheezes (right upper end expiratory wheezes) Cardiovascular: Rate/Rhythm: regular rate and regular rhythm Heart Sounds: normal S1 and normal S2 Extremities: + edema (Lower extremity edema, non- pitting, Left > Right) Pain elicited in posterior left calf with dorsiflexion Chest (Breasts): Additional Comments: Improving erythema of breasts- right breast with periareolar erythema. Tender to palpation of breasts bilaterally, right >> left, however it is less tender than yesterday. Erythema between breasts improved from yesterday. Gastrointestinal (Abdomen): normal bowel sounds, soft, nontender, no hepatosplenomegaly Musculoskeletal: no cyanosis or clubbing, extremities motor strength 5/5 Neurologic: awake Speech / Cognition: no expressive aphasia Motor/Sensory: no sensory deficit Cranial Nerves: PERRL Psychiatric: A+Ox3, euthymic affect Results & Data Vital Signs (Past 12 Hours) Vital Signs Temp Pulse Resp BP Pulse Ox 07/15/19 07:25 36.9 C 72 16 90/57 L 98 07/14/19 23:25 37.1 C 91 H 18 117/73 100 Laboratory Results 07/15/19 07/15/19 07/15/19 Range/Units 11:32 10:15 10:15 WBC 4.92 (4.8-10.8) K/uL RBC 4.15 L (4.2-5.4) M/uL Hgb 12.5 (12.0-16.0) g/dL Hct 37.0 (37-47) % MCV 89.2 (80-100) fL MCH 30.1 (25-34) pg MCHC 33.8 (32-36) g/dL RDW Std Deviation 40.6 (36.4-46.3) fL RDW Coeff of Magdiel 12.6 (11.5-14.5) % Plt Count 198 (130-400) K/uL MPV 9.5 (7.4-10.4) fL Immature Gran % (Auto) 0.4 % Neut % (Auto) 50.0 % Lymph % (Auto) 33.9 % [place] % (Auto) 11.2 % Eos % (Auto) 3.9 % Baso % (Auto) 0.6 % Immature Gran # (Auto) 0.02 (0.00-0.02) K/uL Neut # (Auto) 2.46 (1.4-6.5) K/uL Lymph # (Auto) 1.67 (1.2-3.4) K/uL [place] # (Auto) 0.55 (0.11-0.59) K/uL Eos # (Auto) 0.19 (0-0.5) K/uL Baso # (Auto) 0.03 (0-0.2) K/uL Sodium 141 (136-145) mmol/L Potassium 3.5 (3.5-5.1) mmol/L Chloride 109 H (98-107) mmol/L Carbon Dioxide 29 (21-32) mmol/L Anion Gap 3.0 (3-11) BUN 9 (7-18) mg/dl Creatinine 0.70 (0.6-1.2) mg/dl Est Cr Clr Drug Dosing 90.3 ml/min Est GFR ( Amer) 123.0 Est GFR (Non-Af Amer) 106.1 BUN/Creatinine Ratio 12.7 (10-20) Glucose 107 H (70-99) mg/dl Calcium 8.3 L (8.5-10.1) mg/dl Folate Pending Vancomycin Trough (See Comment) mcg/ml 07/15/19 Range/Units 10:10 WBC (4.8-10.8) K/uL RBC (4.2-5.4) M/uL Hgb (12.0-16.0) g/dL Hct (37-47) % MCV (80-100) fL MCH (25-34) pg MCHC (32-36) g/dL RDW Std Deviation (36.4-46.3) fL RDW Coeff of Magdiel (11.5-14.5) % Plt Count (130-400) K/uL MPV (7.4-10.4) fL Immature Gran % (Auto) % Neut % (Auto) % Lymph % (Auto) % [place] % (Auto) % Eos % (Auto) % Baso % (Auto) % Immature Gran # (Auto) (0.00-0.02) K/uL Neut # (Auto) (1.4-6.5) K/uL Lymph # (Auto) (1.2-3.4) K/uL [place] # (Auto) (0.11-0.59) K/uL Eos # (Auto) (0-0.5) K/uL Baso # (Auto) (0-0.2) K/uL Sodium (136-145) mmol/L Potassium (3.5-5.1) mmol/L Chloride (98-107) mmol/L Carbon Dioxide (21-32) mmol/L Anion Gap (3-11) BUN (7-18) mg/dl Creatinine (0.6-1.2) mg/dl Est Cr Clr Drug Dosing ml/min Est GFR ( Amer) Est GFR (Non-Af Amer) BUN/Creatinine Ratio (10-20) Glucose (70-99) mg/dl Calcium (8.5-10.1) mg/dl Folate Vancomycin Trough 8.4 (See Comment) mcg/ml Diagnostic Findings ULTRASOUND GUIDED ASPIRATION OF RIGHT BREAST FLUID COLLECTION 07/15/19 CLINICAL HISTORY: fluid collection right breast. COMPARISON STUDY: Right breast ultrasound July 13, 2019. PROCEDURE: Sonography of the right breast demonstrated the spacer with adjacent fluid collection. This was targeted for aspiration. The procedure, Versed and benefits were discussed with the patient including the risk of bleeding, infection and injury to the spacer. Patient agreed to the procedure and informed written consent was obtained. The procedure was performed by Dr. Mcarthur following a timeout. Skin was prepped and draped in sterile fashion. No local anesthetic was utilized giving severe allergy. A 20-gauge needle was directed into the fluid. 10 cc of yellowish, minimally cloudy fluid was aspirated and sent to the laboratory for analysis. The needle was withdrawn. The patient tolerated the procedure well and no complications were evident. IMPRESSION: Successful ultrasound guided aspiration of 10 cc of yellowish, only minimally cloudy fluid from a right breast fluid collection. Electronically signed by: Enrico Mcarthur M.D. 07/15/2019 10:08 AM PG Care Time/CCT Total # of Minutes Spent Total Time Spent with Patient: Total time spent is greater than 50% in coordination of care (as documented) at patient's floor/unit and/or counseling patient: 45
[2019-07-15 11:26] LABS: Basophils # (auto) 0.03 K/uL (0-0.2); Basophils % (auto) 0.6 %; Eosinophils # (auto) 0.19 K/uL (0-0.5); Eosinophils % (auto) 3.9 %; Hemoglobin 12.5 g/dL (12.0-16.0); Immature Granulocytes # (auto) 0.02 K/uL (0.00-0.02); Immature Granulocytes % (auto) 0.4 %; Lymphocytes # (auto) 1.67 K/uL (1.2-3.4); Lymphocytes % (auto) 33.9 %; Mean Corpuscular Hemoglobin 30.1 pg (25-34); Mean Corpuscular Volume 89.2 fL (80-100); Mean Platelet Volume 9.5 fL (7.4-10.4); Monocytes # (auto) 0.55 K/uL (0.11-0.59); Monocytes % (auto) 11.2 %; Neutrophils # (auto) 2.46 K/uL (1.4-6.5); Platelet Count 198 K/uL (130-400); RDW Coefficient of Variation 12.6 % (11.5-14.5); RDW Standard Deviation 40.6 fL (36.4-46.3); Red Blood Count 4.15 M/uL (4.2-5.4); White Blood Count 4.92 K/uL (4.8-10.8)
[2019-07-15 11:37] LABS: BUN Creatinine Ratio 12.7 (10-20); Calcium 8.3 mg/dl (8.5-10.1); Creatinine Clr Calc Pharmacy 90.3 ml/min; Est GFR (Non-African American) 106.1; Potassium 3.5 mmol/L (3.5-5.1)
[2019-07-15 11:38] LABS: Mean Corpuscular Hgb Conc 33.8 g/dL (32-36)
--- NOTE | 2019-07-15 12:32 | Pharmacy Report ---
Pharmacy Abx Dose Short Note - Date of Service July 15, 2019 - Assessment & Plan Assessment 43 year old F receiving vancomycin/cefepime for treatment of cellulitis around R breast implant (s/p masectomy) Day # 4 of antimicrobial therapy. Plan Vancomycin * Trough level of 8.4 mcg/mL is subtherapeutic * Change to 1000 mg IV every 8 hours (give 2 hours early due to subtherapeutic trough) * Goal trough level for cellulitis, complicated : ~15 mcg/mL * Trough ordered for: 07/16/19 prior to steady state Pharmacy will continue to follow and will adjust dose/frequency as necessary. Thank you.
--- NOTE | 2019-07-15 14:45 | Ultrasound Report ---
US venous doppler LE LT CLINICAL HISTORY: 43 years-old Female presenting with left leg swelling, tender, and warm. TECHNIQUE: Real-time grayscale and color and spectral Doppler ultrasound imaging of the veins of the left lower extremity was performed. Compression and augmentation were also utilized. COMPARISON: None. FINDINGS: LEFT: Common femoral vein: Patent. Greater saphenous vein (superficial): Patent. Deep femoral vein: Patent. Femoral vein: Patent. Popliteal vein: Patent. Calf veins: Patent. Other: None. IMPRESSION: No evidence of deep venous thrombosis. Electronically signed by: Segundo Lepe M.D. 07/15/2019 2:43 PM
[2019-07-15] MEDS: ACETAMINOPHEN W/CODEINE #3 1 TAB PO PRN (15:37)
--- NOTE | 2019-07-15 17:05 | Surgery Progress Note ---
Date of Service July 15, 2019 Assessment & Plan (1) Cellulitis of right breast: Discussed findings with the patient. While no organisms are seen at present, the presence of many inflammatory cells suggest device infection. I do not think this will resolve with watermelon inspector IV antibiotics, and have recommended removal of the right breast wind operations supervisor with possible replacement based on intraoperative appearance. She understands complete removal with another attempt at reconstruction in the future is possible. Understands we will place a drain. If implant is replaced, I will attempt to replicate fill volume. Risks discussed, including bleeding, infection, poor scarring, seroma, contour deformity, poor cosmetic outcome, further surgery, capsular contracture, nipple or skin necrosis, complete reconstructive loss and consent obtained. (2) Breast implant status: (3) Encounter for breast reconstruction following mastectomy: Subjective Aspiration performed this morning, with mostly serous fluid. Gram stain shows many PMNs, monocytes, no organisms. Still complaining of severe right breast pain, nausea, feeling lousy. Review of Systems Constitutional: + body aches; no sweats Gastrointestinal: + nausea Physical Exam Constitutional: WD/WN, vitals as above Respiratory: normal respiratory effort; no labored breathing Chest (Breasts): Breast: no breast mass and no axillary mass Additional Comments: bilateral tissue expanders in place. Well healed inframammary incisions. No breast wounds or skin breakdown, no drainage. right breast less tender to palpation with erythema decreased superior and persistent medially, with some edema noted. Right wind operations supervisor does appear slightly malrotated. No capsular contracture noted. Skin: no rashes, warm and dry + erythema and + scar Psychiatric: A+Ox3, euthymic affect Results & Data Vital Signs (Past 12 Hours) Vital Signs Temp Pulse Resp BP Pulse Ox 07/15/19 15:21 97.9 F 64 18 112/71 97 07/15/19 11:39 114/59 L 07/15/19 07:25 98.4 F 72 16 90/57 L 98 Gram Stain Result Many Polys And Mononucleated Cells No Organisms Seen PG Care Time/CCT Total # of Minutes Spent Total Time Spent with Patient: Total time spent is greater than 50% in coordination of care (as documented) at patient's floor/unit and/or counseling patient:
--- NOTE | 2019-07-15 18:02 | Anesthesiology Consultation ---
Date of Service July 15, 2019 Assessment & Plan Chart Review Chart Review: Acceptable Risk for Surgery and Patient NOT seen in Pre Admission Testing Consults Requested none ASA ASA3 Proposed Anesthesia Anesthesia Type: General History Surgery Operation Date: 07/16/19 07:30 Proposed Procedures p Removal of Right Tissue Lapel Baster with Possible Replacement - Tawny Tripathi MD Height/Weight Height: 5 ft 1 in Weight: 66.3 kg Allergies Allergy/AdvReac Type Severity Reaction Status Date / Time hydrocodone Allergy Severe HIVES, Verified 07/13/19 13:53 CLOSING OF AIRWAY. CAN TAKE TYLENOL W/ CODEINE ibuprofen Allergy Severe HIVES, Verified 07/13/19 13:53 CLOSING OF AIRWAY lidocaine Allergy Severe Anaphylaxis Verified 07/13/19 13:53 Penicillins Allergy Severe Anaphylaxis Verified 07/13/19 13:53 propoxyphene Allergy Severe ANAPHYLAXIS Verified 07/13/19 13:53 onion Allergy Mild Hives Verified 07/13/19 13:53 clavulanic acid Allergy Unknown UNKNOWN Verified 07/13/19 13:53 oxycodone Allergy Unknown . Verified 07/13/19 13:53 morphine AdvReac Mild NAUSEA AND Verified 07/13/19 13:53 VOMITING Medications Home Medications Medication Instructions Recorded Confirmed Last Taken cyanocobalamin (vit B-12) 250 mcg 250 mcg PO DAILY #90 tab 05/06/19 07/15/19 07/12/19 tablet 250 tamoxifen 20 mg tablet 20 mg PO DAILY #30 tab 05/29/19 07/15/19 07/13/19 20 albuterol sulfate HFA 90 2 puff INHALATION Q4H PRN gm 07/12/19 07/15/19 07/12/19 mcg/actuation aerosol inhaler 2 Active Medications Generic Name Dose Route Start Last Admin Trade Name Freq PRN Reason Stop Dose Admin Acetaminophen/Codeine Phosphate 1 tab 07/14/19 02:44 07/15/19 15:37 Tylenol W/Codeine #3 PO 08/13/19 02:43 1 tab Q4H PRN Administration Pain Cyanocobalamin 250 mcg 07/14/19 09:00 07/15/19 08:39 Vitamin B-12 PO 08/13/19 08:59 250 mcg DAILY CHATO Administration Heparin Sodium (Porcine) 5,000 units 07/13/19 22:00 07/15/19 13:32 Heparin Sodium (Porcine) SQ 08/12/19 21:59 5,000 units Q8 CHATO Administration Hydromorphone HCl 0.5 mg 07/13/19 14:08 07/14/19 03:29 Dilaudid IV 07/27/19 14:07 0.5 mg Q15M PRN Administration Pain Hydromorphone HCl 1 mg 07/13/19 17:10 07/15/19 13:37 Dilaudid IV 07/27/19 17:09 1 mg Q4H PRN Administration Pain Cefepime HCl 2,000 mg/ Syringe 20 mls @ 5.5 mls/min 07/13/19 20:00 07/15/19 12:38 IV 07/23/19 19:59 5.5 mls/min Q8H CHATO Administration Protocol Promethazine HCl 12.5 mg/ 50.5 mls @ 202 mls/hr 07/14/19 22:02 07/15/19 15:57 Sodium Chloride IV 08/13/19 22:01 Infused Q6H PRN Infusion Nausea And Vomiting Vancomycin HCl 1,000 mg/ 270 mls @ 125 mls/hr 07/15/19 16:00 07/15/19 17:30 Sodium Chloride IV 07/25/19 15:59 0 mls/hr Q8H CHATO Titration Lactobacillus Acidophilus 1 gm 07/14/19 08:00 07/15/19 16:38 Floranex Granules/Powder Packet PO 08/13/19 07:59 1 gm TIDM CHATO Administration Ondansetron HCl 4 mg 07/13/19 17:02 07/14/19 20:44 Zofran IV 08/12/19 17:01 4 mg Q6H PRN Administration Nausea Tamoxifen Citrate 20 mg 07/14/19 09:00 07/15/19 08:39 Nolvadex PO 08/13/19 08:59 20 mg DAILY CHATO Administration Past Medical History Medical History Anxiety Asthma uses PRN inh 3-4 x wk BRCA positive 1 and 2 Depression Fibrocystic breast disease Heart palpitations sees Dr. Baldwin every 2 years Hypotension 90/60 norm Migraine Exercise / Class Metabolic Activity III < 4 Walking/Shop/Light housework Past Family History Family History Mother Family history of reaction to anesthesia N/V. slow to wake Father Family history of diabetes mellitus Family/Other Family history of diabetes mellitus paternal aunts/uncles Father Family hx of colon cancer Grandfather Family hx of colon cancer Son Family history of irritable bowel syndrome has crohn's Past Surgical History Surgical History History of anesthesia reaction slow to wake History of arthroscopy of left knee History of breast biopsy multiple - (both breasts)--benign History of cholecystectomy History of colonoscopy History of dilatation and curettage x9 History of esophagogastroduodenoscopy (EGD) History of laparoscopy x2 for endometriosis History of myringotomy bilt as a child History of partial hysterectomy History of partial mastectomy of both breasts History of tonsillectomy and adenoidectomy History of tooth extraction wisdom teeth Past Anesthesia History No Family Hx of Anesthesia Complications and Other History of PONV No Hx of PONV and No Hx of Motion Sickness Social History Smoking Status: Former smoker tobacco type: cigarettes Smoking cigarettes per day: October 2018 Do You Dip or Chew Tobacco: No Hx Alcohol Use: No Hx Substance Use: No substance use type: does not use Physical Exam Vital Signs Last Vital Signs Temp 36.6 C 07/15/19 15:21 Pulse 64 07/15/19 15:21 Resp 18 07/15/19 15:21 BP 112/71 07/15/19 15:21 Pulse Ox 97 07/15/19 15:21 Testing Laboratory Results 07/15/19 10:15 07/15/19 10:15 07/13/19 13:46 Aerobic Blood Culture - Preliminary Blood No growth in Aerobic bottle after 48 hours. Anaerobic Blood Culture - Preliminary No growth in Anaerobic bottle after 48 hours. 07/13/19 14:06 Aerobic Blood Culture - Preliminary Blood No growth in Aerobic bottle after 48 hours. Anaerobic Blood Culture - Preliminary No growth in Anaerobic bottle after 48 hours. 07/15/19 Unknown Gram Stain - Final Breast,Right Electrocardiogram Date: 07/14/19 Findings: + NSR @ (at 76 w/ sinus arrhythmia)
[2019-07-15] MEDS ORDERED: DiphenhydrAMINE HCL 50 MG/ML VIAL IV STA (18:15)
[2019-07-15] MEDS: ONDANSETRON INJ 2 MG/ML 2 ML VIAL IV PRN (22:31)
[2019-07-16] MEDS: VANCOMYCIN HCL 1,000 MG in SODIUM CHLORIDE 0.9% 250 ML IV SCH ×4 (00:14→17:58)
[2019-07-16] MEDS: HYDROmorphone INJ 1 MG/ML SYRINGE IV PRN ×7 (02:33→23:17)
[2019-07-16] MEDS: CEFEPIME 2,000 MG in SYRINGE 7.5 ML IV SCH ×3 (04:54→20:23)
[2019-07-16] MEDS: HEPARIN SOD 5,000 UNIT/0.5 ML VIAL SQ SCH ×3 (05:16→21:17)
[2019-07-16] MEDS ORDERED: MIDAZOLAM HCL 1 MG/ML 2ML VIAL ONE (06:44)
[2019-07-16] MEDS ORDERED: DEXAMETHASONE SOD INJ 4 MG/ML VIAL ONE (06:44)
[2019-07-16] MEDS ORDERED: PROPOFOL IV EMULSION 10 MG/ML 20 ML VIAL IV ONE (06:44)
[2019-07-16] MEDS ORDERED: ONDANSETRON INJ 2 MG/ML 2 ML VIAL ONE (06:44)
[2019-07-16] MEDS ORDERED: fentaNYL citrate 100 MCG/2 ML VIAL ONE ×3 (06:45→09:39)
[2019-07-16] MEDS ORDERED: GENTAMICIN SULFATE 40 MG/ML 2 ML VIAL ONE ×2 (07:06→08:21)
[2019-07-16] MEDS ORDERED: LIDOCAINE/EPINEPHRINE 1% 20 ML VIAL ONE (07:06)
[2019-07-16] MEDS ORDERED: CEFAZOLIN 250 MG/ML 1 GM VIAL ONE (07:07)
[2019-07-16] MEDS ORDERED: BUPIVACAINE 0.25% 30 ML VIAL ONE (07:07)
[2019-07-16] MEDS ORDERED: BACITRACIN INJ 50,000 UNIT VIAL ONE ×2 (07:07→08:21)
--- NOTE | 2019-07-16 07:25 | History & Physical Bridge Note ---
Date of Service July 16, 2019 History & Physical Bridge Note I have examined the patient, reviewed the History & Physical and in the interval since the performance of the History & Physical I have noted the following changes of clinical significance: no changes noted. Right breast unchanged, mild erythema left breast. Will washout right breast today, observe left.
[2019-07-16] MEDS ORDERED: ATROPINE SULFATE 0.1 MG/ML 10ML SYR IV PRN (07:43)
[2019-07-16] MEDS ORDERED: ePHEDrine sulfate 50 MG/ML AMP IV PRN (07:43)
[2019-07-16] MEDS ORDERED: ONDANSETRON INJ 2 MG/ML 2 ML VIAL IV PRN (07:43)
[2019-07-16 08:09] LABS: Hematocrit (blood only) 33.7 % (37-47); Hemoglobin 11.3 g/dL (12.0-16.0); Mean Corpuscular Hemoglobin 29.6 pg (25-34); Mean Corpuscular Hgb Conc 33.5 g/dL (32-36); Mean Corpuscular Volume 88.2 fL (80-100); Mean Platelet Volume 9.4 fL (7.4-10.4); Platelet Count 183 K/uL (130-400); RDW Coefficient of Variation 12.5 % (11.5-14.5); Red Blood Count 3.82 M/uL (4.2-5.4); White Blood Count 5.02 K/uL (4.8-10.8)
[2019-07-16] MEDS ORDERED: ALBUTEROL HFA INHALER 8.5 GM ONE (08:13)
[2019-07-16] MEDS ORDERED: VANCOMYCIN HCL 1000MG/20ML VIAL ONE (08:24)
[2019-07-16 08:36] LABS: BUN Creatinine Ratio 22.1 (10-20); Calcium 8.6 mg/dl (8.5-10.1); Creatinine Clr Calc Pharmacy 112.9 ml/min; Est GFR (African American) 132.4; Est GFR (Non-African American) 114.2; Magnesium 1.7 mg/dl (1.8-2.4); Potassium 3.8 mmol/L (3.5-5.1)
--- NOTE | 2019-07-16 09:32 | Post Operative Brief Note ---
Immediate Post Op Note v1 Date of Surgery July 16, 2019 Pre & Post Diagnosis Operation Date: 07/16/19 07:30 Pre-Op Diagnosis: CELLULITIS/ RIGHT BREAST ABSCESS Post-Op Diagnosis: CELLULITIS/ RIGHT BREAST ABSCESS Procedure Operation Date: 07/16/19 07:30 Actual Procedures p Removal of Right Tissue Survey Coordinator with Tissue Survey Coordinator Replacement(Right) - Tawny Tripathi MD Surgeon Tawny Tripathi MD Radiator Repairer Lise Solis PA-C Estimated Blood Loss 5 Findings Consistent with Post-Op Diagnosis scant cloudy drainage anterior to Alloderm along IMF when incision opened; s eroma fluid in pocket surrounding debeaker. Survey Coordinator intact, no purulence, Alloderm well incorporated/vascularized, capsule with minimal inflammation noted Specimens cx of subq fluid cs of pocket fluid small amount of unincorporated Alloderm sent for tissue culture small nodule of apparent fat necrosis sent for path Drains Ricardo-Garcia Drain Anesthesia Type General Complications none Disposition Disposition: Recovery Room
[2019-07-16] MEDS: fentaNYL citrate 100 MCG/2 ML VIAL IV PRN ×4 (09:48→10:03)
--- NOTE | 2019-07-16 10:33 | Anesthesiology Progress Note ---
Date of Service July 16, 2019 Anesthesia Post Procedure Vital Signs Vital Signs: Temp Pulse Pulse Resp BP Pulse Ox 07/16/19 10:20 78 23 108/63 97 07/16/19 10:10 69 14 107/68 98 07/16/19 10:00 73 14 122/69 99 07/16/19 09:50 81 17 112/71 100 07/16/19 09:44 36.4 C L 81 13 132/53 L 100 07/16/19 07:16 37 C 76 20 107/65 99 07/16/19 06:53 36.9 C 81 18 96/63 L 93 07/15/19 23:50 36.7 C 64 16 112/64 100 07/15/19 15:21 36.6 C 64 18 112/71 97 07/15/19 11:39 114/59 L Pain Intensity Right Breast: Pain Intensity: 5 Left Ankle: Pain Intensity: 0 Transfer of Care Handoff Completed per policy Notes Mental Status: alert / awake / arousable and participated in evaluation Patient Amnestic to Procedure: Yes Nausea / Vomiting: adequately controlled Pain: adequately controlled Airway Patency, RR, SpO2: stable & adequate BP & HR: stable & adequate Hydration State: stable & adequate Anesthetic Complications: no major complications apparent and Pt Satisfied with anesthetic care
[2019-07-16] MEDS ORDERED: ACETAMINOPHEN 1,000 MG/100 ML VIAL IV STA (10:38)
[2019-07-16] MEDS ORDERED: ACETAMINOPHEN 1000 MG/100 ML IV IV ONE (10:39)
--- NOTE | 2019-07-16 10:47 | Operative Report ---
Post Operative Report Pre & Post Diagnosis Operation Date: 07/16/19 07:30 Pre-Op Diagnosis: CELLULITIS/ RIGHT BREAST ABSCESS Post-Op Diagnosis: CELLULITIS/ RIGHT BREAST ABSCESS Procedure Operation Date: 07/16/19 07:30 Actual Procedures p Removal of Right Breast Tissue Patient Access with Right Breast Tissue Patient Access Replacement(Right) - Tawny Tripathi MD Surgeon Tawny Tripathi MD Long Chain Dyeing Machine Operator Lise Solis PA-C Estimated Blood Loss 5 Findings Consistent with Post-Op Diagnosis scant cloudy drainage anterior to Alloderm along IMF when incision opened; seroma fluid in pocket surrounding traveling sales representative. Patient Access intact, no purulence, Alloderm well incorporated/vascularized, capsule with minimal inflammation noted Specimens cx subq tissue cx breast pocket tissue cx of unicorporated Alloderm bx of nodule (likely fat necrosis) right breast Drains KAY x1 Anesthesia Type General Complications none Disposition Disposition: Recovery Room Indications Patient is a 43-year-old female who underwent bilateral mastectomy with immediate reconstruction in March 2019. She had done well postoperatively, and 3 months status post her procedure, she presented to the emergency department with a 3-day history of right breast redness, fevers and chills. She was admitted and placed on intravenous antibiotics, had minimal improvement, and underwent ultrasound-guided aspiration of a fluid collection which showed many polys and monocytes. Due to the significant degree of inflammatory reaction, I recommended exploration in the operating room with washout and possible replacement of her traveling sales representative. Description of Procedure The risks, benefits, and alternatives of procedure including continued intravenous antibiotics or complete removal of the traveling sales representative without replacement were discussed. She desired to proceed with exploration in the operating room, removal of the right breast tissue traveling sales representative, and possible replacement. Consent was obtained. She is marked in the preoperative holding area brought to the operating room where she was positioned supine and placed under general anesthesia without incident. Surgical site was prepped and draped sterilely. Timeout procedure was performed. Operative site was the right breast. Due to local anesthesia allergy, the incision site was not infiltrated with local anesthesia. A 15 blade scalpel was used to make the incision. After making the skin incision, there was return of slightly murky fluid anterior to the AlloDerm. This was sent for culture. There is a small area of unincorporated AlloDerm noted, about 2 x 2 cm. AlloDerm was incised using electrocautery and the pocket was entered. There is noted to be seroma fluid present, however, this did appear to be quite clear. This fluid was cultured as well. The unincorporated AlloDerm was excised and sent for pathology for tissue culture. The traveling sales representative was punctured and saline was aspirated out. Patient Access was removed. Pocket was explored. Overall, pocket had minimal apparent inflammation to the capsule, no capsular thickening, no granulation tissue, no significant induration noted. The pocket was irrigated with 3 L of normal saline with vancomycin, then antibiotic irrigation using gentamicin and bacitracin. Based on the appearance of the capsule, I felt it was reasonable to attempt salvage, and a new 250 cc Allergan 133S MV traveling sales representative was placed. The 3 inferior most suture tabs were sutured to the chest wall and capsule in order to prevent rotation of the traveling sales representative. 15 Gu[place]ese Yasmani drain was placed through separate stab incision from the pocket and brought out through the skin. It was sutured into place using 3-0 nylon suture. Prior to closure, 350 cc of sterile injectable saline were injected into the tissue traveling sales representative. AlloDerm and superficial fascial layer were closed using 2-0 Vicryl interrupted sutures. Deep dermis was closed using 2-0 Vicryl interrupted sutures. Superficial dermis was closed using 3-0 PDS interrupted sutures. 3-0 Monocryl running subcuticular suture was used to complete the closure. Acticoat 7 was used to dress the drain site as well as the incision site, followed by dry dressing and surgical bra. Procedure was tolerated well. Estimated blood loss 5 cc. Lise Solis PA-C was present and scrubbed thoughout the entire procedure. I attest to the content of the Intraoperative Record and any orders documented therein. Any exceptions are noted below.
[2019-07-16] MEDS: TAMOXIFEN CITRATE 10 MG TABLET PO SCH (11:20)
[2019-07-16] MEDS: CYANOCOBALAMIN 500 MCG TABLET (VITAMIN B-12) PO SCH (11:20)
[2019-07-16] MEDS: LACTOBACILLUS ACIDOPHILUS 1 GM PACK PO SCH ×3 (11:20→17:36)
[2019-07-16] MEDS: PROMETHAZINE HCL 12.5 MG in SODIUM CHLORIDE 0.9% 50 ML IV PRN (12:18)
--- NOTE | 2019-07-16 12:30 | Hospitalist Progress Note ---
Date of Service July 16, 2019 Assessment & Plan (1) Cellulitis of right breast: * Patient has history of precancerous (+BRCA 1/BRCA 2) breast fibrocystic disease s/p multiple biopsies and eventual bilateral mastectomy by Dr. Dow and breast reconstruction by Dr. Tripathi March 2019- planned for long term care administrator exchange/implants July [address] Tripathi. Admitted on 07/13 with Breast Cellulitis s/p bilateral mastectomy - Right Breast >> Left. Ultrasound of Right Breast 07/13 shows two fluid collections in right breast, with subsequent Ultrasound Guided Aspiration 07/15 with 10cc yellowish, minimally clouded fluid. * Patient to OR this morning for Dr. Tripathi for washout and exchange of long term care administrator with drain placement. Appreciate continued input. * Erythema without significant change, however, patient continues to remain afebrile, WBC wnl * Continue IV Cefepime/Vanco- patient tolerated cephalosporins in past despite listed allergy * Preliminary Blood Cultures without growth to date * Gram Stain/Culture from right breast pending * Pain management with Dilaudid - patient has allergy to oxycodone and history of elevated LFTs * Pheregan for nausea * Mag 1.7 this AM- replacement with 1g IV- repeat in AM * Continue to monitor on MedSurg (2) Swelling of left lower extremity: * Left lower leg edema- per patient, chronic since procedure and tamoxifen initiation * 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 * Patient has not being utilizing SCDs during this admission- will order star hose for venous insufficiency * Receiving Heparin for DVT prophylaxis, however patient's left leg more swollen than yesterday, tender and warm * Ultrasound Venous Doppler negative for DVT * Star Hose (3) Nausea & vomiting: * Refractory N/V despite zofran- currently receving phenergan- will continue (4) H/O: hysterectomy: * History of hysterectomy due to endometriosis. * Follows with Cami Payne PA-C as outpatient- patient still has ovaries and was told she will be on tamoxifen for a minimum of 2 years. * Continue tamoxifen at this time (5) B12 deficiency: * Per patient- chronic- on B12 supplementation * Continue B12 (6) DVT prophylaxis: * SCDs * SQ Heparin Supervising Physician Co-Signing Physician Notes Attending Attestation - Pt seen/examined, chart reviewed in detail, care plan d/w RYANN Hodgson. I agree w/ the foster components of her documentation. I saw the patient late in the day today many hours following her right breast long term care administrator exchange and washout. She said "it's night and day how I feel - I am so much better". Pain improved, she overall feels better. Biggest complaint is that of b/l leg swelling worse on left. Does have varicose veins. VSS, afebrile gen - nad neck - no JVD heart - RRR, s1 s2 lungs - CTA b/l chest - drain in place on right ext - 1+ edema left, <1+ on right, TEDS in place A/P: 1. right breast cellulitis and probable infected seroma - s/p needle drainage yesterday by radiology, and now s/p washout with long term care administrator exchange today by Dr Tripathi. clinically stable/improved. follow all cultures (yesterday's thus far negative). cont current IV abx. 2. edema - suspect due to varicose veins (venous insuff) and tamoxifen use. LLE doppler neg DVT. TSH wnl. LFTs wnl. No evidence of CHF. U/a without proteinuria. TEDs. Elevation. Consider low-dose diuretic for a few days as she is quite bothered by the edema and it affects her quality of life. Leonid Murdock MD Subjective Attempted to see patient this morning prior to procedure, however she had already been taken to OR. Saw patient this afternoon after surgery. Patient with increased pain and nausea. Patient continues to express lower leg swelling, despite elevation of feet. However, patient wears compression stockings daily for swelling due to occupation and has not used them since admission. Patient denies use of SCDs during this admission despite being on the end of the bed. She states that her mother sent her a text to request levothyroxine for her swelling because her mother stated it helped her swelling despite not having a history of thyroid disorder. Discussion was had regarding TSH level and inappropriate usage of levothyroxine. Patient demonstrates understanding. Review of Systems Constitutional: + anorexia (secondary to continued nausea); no fever and no chills Respiratory: + wheezing (hx asthma, uses albuterol prn); no cough, no dyspnea and no hemoptysis Cardiovascular: + chest pain (intermittent discomfort), + palpitations (occassionally feels like heart is beating loudly- states hx of venous hum and occassional associated symptoms in the past) and + edema (lower extremity, bilateral); no chest pain with activity and no syncope Additional Comments: Significant breast pain bilaterally, Right >> Left Gastrointestinal: + nausea and + vomiting; no abdominal pain, no coffee ground emesis and no hematemesis Musculoskeletal: as per Subjective / HPI Integumentary: + breast pain and + breast skin changes (erythema) Bilateral expanders in place Neurologic: as per Subjective / HPI Endocrine: hair thinning Physical Exam Constitutional: well developed, well nourished and cooperative; no acute distress Eyes: PERRL, conjunctivae normal, anicteric sclerae ENMT: external ear and nose normal, oropharynx normal Neck: trachea midline, no thyromegaly Respiratory: normal respiratory effort; no respiratory distress, no labored breathing, does not use accessory muscles and no cough Auscultation: + wheezes (right upper end expiratory wheezes) Cardiovascular: RRR, no murmur, no edema Rate/Rhythm: regular rate and regular rhythm Heart Sounds: normal S1 and normal S2 Extremities: + edema (Lower extremity edema, non-pitting, Left > Right) Chest (Breasts): Additional Comments: Surgical dressing dry and intact to right breast with surgical bra and drain in place. Erythema unchanged Gastrointestinal (Abdomen): normal bowel sounds, soft, nontender, no hepatosplenomegaly Musculoskeletal: no cyanosis or clubbing, extremities motor strength 5/5 Neurologic: awake Speech / Cognition: no expressive aphasia Motor/Sensory: no sensory deficit Cranial Nerves: PERRL Psychiatric: A+Ox3, euthymic affect Results & Data Vital Signs (Past 12 Hours) Vital Signs Temp Pulse Pulse Resp BP Pulse Ox Pulse Ox 07/16/19 12:13 74 18 121/56 L 95 07/16/19 11:40 37.0 C 83 18 112/59 L 93 07/16/19 11:10 37.1 C 85 16 115/66 93 93 07/16/19 10:50 75 12 109/67 94 07/16/19 10:40 36.4 C L 78 16 121/67 95 07/16/19 10:30 76 16 114/69 95 07/16/19 10:20 78 23 108/63 97 07/16/19 10:10 69 14 107/68 98 07/16/19 10:00 73 14 122/69 99 07/16/19 09:50 81 17 112/71 100 07/16/19 09:44 36.4 C L 81 13 132/53 L 100 07/16/19 07:16 37 C 76 20 107/65 99 07/16/19 06:53 36.9 C 81 18 96/63 L 93 Laboratory Results 07/16/19 07/16/19 07/16/19 Range/Units 07:53 07:53 07:53 WBC 5.02 (4.8-10.8) K/uL RBC 3.82 L (4.2-5.4) M/uL Hgb 11.3 L (12.0-16.0) g/dL Hct 33.7 L (37-47) % MCV 88.2 (80-100) fL MCH 29.6 (25-34) pg MCHC 33.5 (32-36) g/dL RDW Std Deviation 40.0 (36.4-46.3) fL RDW Coeff of Amgdiel 12.5 (11.5-14.5) % Plt Count 183 (130-400) K/uL MPV 9.4 (7.4-10.4) fL Sodium 141 (136-145) mmol/L Potassium 3.8 (3.5-5.1) mmol/L Chloride 111 H (98-107) mmol/L Carbon Dioxide 25 (21-32) mmol/L Anion Gap 5.0 (3-11) BUN 12 (7-18) mg/dl Creatinine 0.56 L (0.6-1.2) mg/dl Est Cr Clr Drug Dosing 112.9 ml/min Est GFR ( Amer) 132.4 Est GFR (Non-Af Amer) 114.2 BUN/Creatinine Ratio 22.1 H (10-20) Glucose 89 (70-99) mg/dl Calcium 8.6 (8.5-10.1) mg/dl Magnesium 1.7 L (1.8-2.4) mg/dl Vancomycin Trough 13.9 (See Comment) mcg/ml Diagnostic Findings PTH Non-RELOCATION SPECIALIST Cytology Specifmen 07/15/19 FINAL DIAGNOSIS BREAST, RIGHT, FINE NEEDLE ASPIRATION: 1. ABUNDANT LYMPHOCYTES AND NEUTROPHILS. 2. NO MALIGNANT CELLS SEEN. RV/mas Screened by on at . at 1721. Clinical History Cellulitis/breast abscess. Patient 3 months status post breast reconstruction with 4-day history of redness of breast and pain. Tissues Breast Cyto.NG - RIGHT Gross Description 2 CC SLIGHTLY CLOUDY YELLOW FLUID 1PAP,1DQ US venous doppler LE LT 07/15/19 CLINICAL HISTORY: 43 years-old Female presenting with left leg swelling, tender, and warm. TECHNIQUE: Real-time grayscale and color and spectral Doppler ultrasound imaging of the veins of the left lower extremity was performed. Compression and augmentation were also utilized. COMPARISON: None. FINDINGS: LEFT: Common femoral vein: Patent. Greater saphenous vein (superficial): Patent. Deep femoral vein: Patent. Femoral vein: Patent. Popliteal vein: Patent. Calf veins: Patent. Other: None. IMPRESSION: No evidence of deep venous thrombosis. Electronically signed by: Segundo Lepe M.D. 07/15/2019 2:43 PM Dictated: 07/15/19 1443 Transcribed: 07/15/19 1443 PG Care Time/CCT Total # of Minutes Spent Total Time Spent with Patient: Total time spent is greater than 50% in coordination of care (as documented) at patient's floor/unit and/or counseling patient: 30
[2019-07-16] MEDS ORDERED: MAGNESIUM SULFATE / D5W 1 GM/100 ML BAG IV ONE (13:00)
[2019-07-16] MEDS: ACETAMINOPHEN W/CODEINE #3 1 TAB PO PRN ×2 (13:11→20:22)
[2019-07-16] MEDS: ONDANSETRON INJ 2 MG/ML 2 ML VIAL IV PRN ×2 (16:45→17:21)
[2019-07-17] MEDS: VANCOMYCIN HCL 1,000 MG in SODIUM CHLORIDE 0.9% 250 ML IV SCH ×3 (01:11→17:40)
[2019-07-17] MEDS: ACETAMINOPHEN W/CODEINE #3 1 TAB PO PRN ×3 (01:19→14:50)
[2019-07-17] MEDS: HYDROmorphone INJ 1 MG/ML SYRINGE IV PRN ×2 (03:27→07:32)
[2019-07-17] MEDS: ONDANSETRON INJ 2 MG/ML 2 ML VIAL IV PRN (04:16)
[2019-07-17] MEDS: HYDROmorphone INJ 0.5 MG/0.5 ML SYR IV PRN (04:17)
[2019-07-17] MEDS: CEFEPIME 2,000 MG in SYRINGE 7.5 ML IV SCH ×3 (04:17→21:34)
[2019-07-17] MEDS: HEPARIN SOD 5,000 UNIT/0.5 ML VIAL SQ SCH ×4 (06:11→21:19)
[2019-07-17 06:48] LABS: Hematocrit (blood only) 34.3 % (37-47); Hemoglobin 11.7 g/dL (12.0-16.0); Mean Corpuscular Hemoglobin 30.2 pg (25-34); Mean Corpuscular Hgb Conc 34.1 g/dL (32-36); Mean Corpuscular Volume 88.6 fL (80-100); Mean Platelet Volume 9.3 fL (7.4-10.4); Platelet Count 190 K/uL (130-400); RDW Coefficient of Variation 12.7 % (11.5-14.5); RDW Standard Deviation 40.7 fL (36.4-46.3); Red Blood Count 3.87 M/uL (4.2-5.4); White Blood Count 7.96 K/uL (4.8-10.8)
[2019-07-17 07:23] LABS: BUN Creatinine Ratio 15.2 (10-20); Calcium 8.5 mg/dl (8.5-10.1); Creatinine Clr Calc Pharmacy 95.8 ml/min; Est GFR (African American) 125.4; Est GFR (Non-African American) 108.2; Potassium 3.7 mmol/L (3.5-5.1)
[2019-07-17] MEDS: PROMETHAZINE HCL 12.5 MG in SODIUM CHLORIDE 0.9% 50 ML IV PRN (07:32)
[2019-07-17] MEDS: CYANOCOBALAMIN 500 MCG TABLET (VITAMIN B-12) PO SCH (09:11)
[2019-07-17] MEDS: TAMOXIFEN CITRATE 10 MG TABLET PO SCH (09:11)
[2019-07-17] MEDS: LACTOBACILLUS ACIDOPHILUS 1 GM PACK PO SCH ×3 (09:12→17:40)
--- NOTE | 2019-07-17 09:18 | Surgery Progress Note ---
Date of Service July 17, 2019 Assessment & Plan (1) Cellulitis of right breast: Patient is POD #1 s/p Removal of Right Breast Tissue Earth Moving Machine Operator with Right Breast Tissue Earth Moving Machine Operator Replacement. Patient reports that pain is improving. Erythema of left breast has resolved and right breast erythema is significantly improved, nearly resolved. Dr. Tripathi did speak with Hospitalist PA, Mickie Hodgson, regarding patient's care. Antibiotics per primary service. Possible discharge tomorrow or Sunday. Supervising Physician Co-Signing Physician Notes I personally saw and examined this patient this morning at bedside. Breast pain is a bit better, generally she is feeling better. Experiencing pain at IV sites due infiltrations. She would like to switch to all oral meds. Afebrile this am, redness of right breast resolved. Dressings intact. WBC 7. Cx pending. Discussed whether to discontinue IV abx and switch to oral. I would prefer IV until culture results are available, but will defer to hospitalists' expertise. Will need to continue PO abx following discharge. Discussed with patient we will likely postpone next surgery until well healed from certified peer specialist replacement. Subjective Patient resting in bed- states that she was not able to get much sleep last evening. She does state that the redness in her right breast has significantly improved. Her left breast redness has completely resolved. Patient does state that she continues to have pain, but does admit that it is improved since admission. She is requesting that her inpatient medications be switched to oral because IV has had to be replaced a couple of times. Physical Exam Physical Exam: On physical exam- surgical bra and dressing in place. Dressing is clean and dry. Both right and left nipples are viable. Right surgical incision is clean, dry, intact. No evidence of infection or wound dehiscence. Patient's right breast erythema has improved. Erythema of left breast has resolved. Results & Data Vital Signs (Past 12 Hours) Vital Signs Temp Pulse Resp BP Pulse Ox 07/17/19 07:32 36.5 C 56 L 18 129/72 100 07/17/19 03:26 36.8 C 74 18 103/58 L 97 07/16/19 23:35 37.1 C 70 18 115/70 96 PG Care Time/CCT Total # of Minutes Spent Total Time Spent with Patient: Total time spent is greater than 50% in coordination of care (as documented) at patient's floor/unit and/or counseling patient:
[2019-07-17] MEDS ORDERED: PROMETHAZINE HCL 12.5 MG/10 ML UDP PO PRN (09:50)
--- NOTE | 2019-07-17 10:15 | Hospitalist Progress Note ---
Date of Service July 17, 2019 Assessment & Plan (1) Cellulitis of right breast: * Patient has history of precancerous (+BRCA 1/BRCA 2) breast fibrocystic disease s/p multiple biopsies and eventual bilateral mastectomy by Dr. Dow and breast reconstruction by Dr. Tripathi March 2019- planned for innovations paraprofessional exchange/implants [address] Tripathi. Admitted on 07/13 with Breast Cellulitis s/p bilateral mastectomy - Right Breast >> Left. Ultrasound of Right Breast 07/13 shows two fluid collections in right breast, with subsequent Ultrasound Guided Aspiration 07/15 with 10cc yellowish, minimally clouded fluid. * Patient to OR yesterday (07/17) for Dr. Tripathi for washout and exchange of innovations paraprofessional with drain placement. Appreciate continued input. * Erythema with significant improvement * Patient continues to remain afebrile, WBC wnl, culture without growth currently- may consider discontinuing antibiotics in AM with possible discharge and will continue to monitor culture results for need to continue oral agent as outpatient * Continue IV Cefepime/Vanc for now * Blood Cultures without growth to date * Gram Stain/Culture from right breast pending * Dilaudid discontinued- switched to PO for pending d/c in AM - patient has allergy to oxycodone and history of elevated LFTs * Pheregan IV switched to PO prn nausea since patient has been tolerating diet. 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 * Patient has not being utilizing SCDs during this admission- will order star hose for venous insufficiency * Receiving Heparin for DVT prophylaxis, however patient's left leg more swollen than yesterday, tender and warm * Ultrasound Venous Doppler negative for DVT * Star Hose with much improvement (3) Nausea & vomiting: * Refractory N/V despite zofran during hospital admission * Currently receving phenergan- will continue, but will switch from IV to PO (4) H/O: hysterectomy: * History of hysterectomy due to endometriosis. * Follows with Cami Payne PA-C as outpatient- patient still has ovaries and was told she will be on tamoxifen for a minimum of 2 years. * Continue tamoxifen at this time (5) B12 deficiency: * Per patient- chronic- on B12 supplementation * Continue B12 (6) DVT prophylaxis: * SCDs * SQ Heparin Dispo: Discharge tomorrow Supervising Physician Co-Signing Physician Notes Attending Attestation: Pt was not personally seen at the bedside today. However, I reviewed her chart and her care plan was d/w RYANN Hodgson. I agree w/ the foster components of her documentation. Vitals/labs remain acceptable. Cultures thus far from the OR and from recent u/s-guided I/D all negative to date. Leonid Murdock MD Subjective Patient evaluated at bedside this morning. Patient states she has pain, but it has been much improved since yesterday. She is agreeable to switch to oral pain medications in anticipation for discharge home tomorrow. Patient's lower extremity swelling have been much improved since the implementation of star hose, She also states she feels more awake and clear minded today after receiving magnesium replacement. Patient had normal BM this morning and nausea has been much less over the last twenty four hours, without any vomiting. She has been able to keep food down since after her procedure yesterday. Review of Systems Review of Systems: All systems reviewed & are unremarkable except as noted in HPI & below Constitutional: no fever and no chills Ear, Nose, Mouth, Throat: no ear pain and no dizziness Respiratory: + wheezing (occasional, albuterol prn for asthma); no cough, no dyspnea and no hemoptysis Cardiovascular: + palpitations (occassionally feels like heart is beating loudly- states hx of venous hum and occassional associated symptoms in the past) and + edema (lower extremity, improved from yesterday); no chest pain, no chest pain with activity and no syncope Additional Comments: Breast pain Gastrointestinal: + nausea (improving); no abdominal pain, no vomiting, no coffee ground emesis and no hematemesis Genitourinary: + urinary frequency (increased since star hose placed); no dysuria and no difficulty urinating Musculoskeletal: as per Subjective / HPI Integumentary: + breast pain and + breast skin changes (erythema) Bilateral expanders in place Neurologic: as per Subjective / HPI Physical Exam Constitutional: well developed, well nourished and cooperative; no acute distress Eyes: PERRL, conjunctivae normal, anicteric sclerae ENMT: external ear and nose normal, oropharynx normal Neck: trachea midline, no thyromegaly Respiratory: normal respiratory effort; no respiratory distress, no labored breathing, does not use accessory muscles and no cough Auscultation: + wheezes (right upper end expiratory wheezes) Cardiovascular: Rate/Rhythm: regular rate, regular rhythm and + bradycardic (slightly bradycardic per VS doc- during examination, patient 64bpm) Heart Sounds: normal S1 and normal S2 Extremities: + edema (Lower extremity edema, non-pitting, improving) Chest (Breasts): Additional Comments: surgical bra and dressing in place. Right surgical incision is clean, dry, intact. No evidence of infection or wound dehiscence. Right breast erythema improving. Left breast without erythema Gastrointestinal (Abdomen): normal bowel sounds, soft, nontender, no hepatosplenomegaly Musculoskeletal: no cyanosis or clubbing, extremities motor strength 5/5 Neurologic: awake Speech / Cognition: no expressive aphasia Motor/Sensory: no sensory deficit Cranial Nerves: PERRL Psychiatric: A+Ox3, euthymic affect Results & Data Vital Signs (Past 12 Hours) Vital Signs Temp Pulse Resp BP Pulse Ox 07/17/19 07:32 36.5 C 56 L 18 129/72 100 07/17/19 03:26 36.8 C 74 18 103/58 L 97 07/16/19 23:35 37.1 C 70 18 115/70 96 Laboratory Results 07/17/19 07/17/19 07/17/19 Range/Units 06:37 06:37 06:31 WBC 7.96 (4.8-10.8) K/uL RBC 3.87 L (4.2-5.4) M/uL Hgb 11.7 L (12.0-16.0) g/dL Hct 34.3 L (37-47) % MCV 88.6 (80-100) fL MCH 30.2 (25-34) pg MCHC 34.1 (32-36) g/dL RDW Std Deviation 40.7 (36.4-46.3) fL RDW Coeff of Magdiel 12.7 (11.5-14.5) % Plt Count 190 (130-400) K/uL MPV 9.3 (7.4-10.4) fL Sodium 141 (136-145) mmol/L Potassium 3.7 (3.5-5.1) mmol/L Chloride 111 H (98-107) mmol/L Carbon Dioxide 24 (21-32) mmol/L Anion Gap 6.0 (3-11) BUN 10 (7-18) mg/dl Creatinine 0.66 (0.6-1.2) mg/dl Est Cr Clr Drug Dosing 95.8 ml/min Est GFR ( Amer) 125.4 Est GFR (Non-Af Amer) 108.2 BUN/Creatinine Ratio 15.2 (10-20) Glucose 107 H (70-99) mg/dl Calcium 8.5 (8.5-10.1) mg/dl Magnesium 1.9 (1.8-2.4) mg/dl Stool Occult Bld Scrn (Negative) 07/16/19 Range/Units 23:29 WBC (4.8-10.8) K/uL RBC (4.2-5.4) M/uL Hgb (12.0-16.0) g/dL Hct (37-47) % MCV (80-100) fL MCH (25-34) pg MCHC (32-36) g/dL RDW Std Deviation (36.4-46.3) fL RDW Coeff of Magdiel (11.5-14.5) % Plt Count (130-400) K/uL MPV (7.4-10.4) fL Sodium (136-145) mmol/L Potassium (3.5-5.1) mmol/L Chloride (98-107) mmol/L Carbon Dioxide (21-32) mmol/L Anion Gap (3-11) BUN (7-18) mg/dl Creatinine (0.6-1.2) mg/dl Est Cr Clr Drug Dosing ml/min Est GFR ( Amer) Est GFR (Non-Af Amer) BUN/Creatinine Ratio (10-20) Glucose (70-99) mg/dl Calcium (8.5-10.1) mg/dl Magnesium (1.8-2.4) mg/dl Stool Occult Bld Scrn Negative (Negative) PG Care Time/CCT Total # of Minutes Spent Total Time Spent with Patient: Total time spent is greater than 50% in coordination of care (as documented) at patient's floor/unit and/or counseling patient: 30
[2019-07-17] MEDS ORDERED: OXYCODONE HCL IR 5 MG TAB (IMMEDIATE RELEASE) PO STA (18:54)
[2019-07-17] MEDS ORDERED: OXYCODONE HCL IR 5 MG TAB (IMMEDIATE RELEASE) ONE (19:05)
[2019-07-17] MEDS: ACETAMINOPHEN 325 MG TAB PO PRN (23:40)
[2019-07-18] MEDS ORDERED: OXYCODONE HCL IR 5 MG TAB (IMMEDIATE RELEASE) PO PRN (01:00)
[2019-07-18] MEDS: OXYCODONE HCL IR 5 MG TAB (IMMEDIATE RELEASE) PO PRN ×2 (01:04→08:15)
[2019-07-18] MEDS: VANCOMYCIN HCL 1,000 MG in SODIUM CHLORIDE 0.9% 250 ML IV SCH (02:34)
[2019-07-18] MEDS: CEFEPIME 2,000 MG in SYRINGE 7.5 ML IV SCH (02:35)
[2019-07-18] MEDS: HEPARIN SOD 5,000 UNIT/0.5 ML VIAL SQ SCH (05:42)
[2019-07-18] MEDS: ACETAMINOPHEN 325 MG TAB PO PRN (05:42)
[2019-07-18 08:14] LABS: BUN Creatinine Ratio 17.4 (10-20); Calcium 8.5 mg/dl (8.5-10.1); Est GFR (Non-African American) 110.4
[2019-07-18] MEDS: TAMOXIFEN CITRATE 10 MG TABLET PO SCH (08:14)
[2019-07-18] MEDS: CYANOCOBALAMIN 500 MCG TABLET (VITAMIN B-12) PO SCH (08:14)
[2019-07-18] MEDS: LACTOBACILLUS ACIDOPHILUS 1 GM PACK PO SCH ×2 (08:14→11:58)
[2019-07-18] MEDS ORDERED: DOXYCYCLINE HYCLATE 100 MG CAP PO ONE (09:30)
[2019-07-18] MEDS ORDERED: CIPROFLOXACIN 500 MG TAB PO ONE (09:30)
--- NOTE | 2019-07-18 10:14 | Surgery Progress Note ---
Date of Service July 18, 2019 Assessment & Plan (1) Cellulitis of right breast: Patient is POD #2 s/p Removal of Right Breast Tissue Golf Cart Mechanic with Right Breast Tissue Golf Cart Mechanic Replacement. Patient continues to report that pain is improving. Erythema of both right and left breast has resolved. I did discuss with patient that it is highly advised that she not refuse her ordered antibiotics while she is inpatient and that she will be discharged with one, possibly two antibiotics, that she is to take for the next 2 weeks. Patient is aware that refusing antibiotics does put her in jeopardy of infection, risk of reconstruction failure, and risk of needing one or possibly both expanders completely removed. She is aware that drain will remain at discharge and that she is to record the drainage amount each time drain is emptied. She is only allowed to sponge bathe and she is to keep surgical dressing dry. She is not allowed to shower and patient is aware of this. Patient is aware that she is to follow-up with us in the [facility] office early next week. Plan is for patient to be discharged with oral antibiotics. I did personally discuss patient's care with Mickie Hodgson and she will be providing patient with outpatient oral antibiotics for 2 weeks. All questions were answered. Subjective I was informed by patient's nurse (Kurt), prior to entering the room, that patient did refuse 2 doses of her IV antibiotics. Patient resting in chair next to bed, significant other laying in patient's bed. She reports that she is feeling well and states that the redness in both breasts has completely resolved. Patient does state that she continues to have pain, but does admit that it is improved since admission. Physical Exam Physical Exam: On physical exam- surgical bra in place, KAY drain in place with 20cc of serosang drainage overnight)- surgical dressing in place which is dry. Surgical dressing removed this AM and I was able to exam the right breast breast incision. Incision is clean, dry, and intact. It is well-approximated. There are no signs of infection and no evidence of wound dehiscence. The right breast is free of any redness and she is reports that the right is only mildly tender with palpation. The left breast redness has completely resolved as well. Acticote 7 was placed over incision with clean 4x4 dressing and paper tape to secure. Drain is still securely in place on right side. Results & Data Vital Signs (Past 12 Hours) Vital Signs Temp Pulse Resp BP Pulse Ox 07/18/19 07:20 36.8 C 68 20 96/57 L 98 07/17/19 23:32 37.1 C 84 18 129/80 96 PG Care Time/CCT Total # of Minutes Spent Total Time Spent with Patient: Total time spent is greater than 50% in coordination of care (as documented) at patient's floor/unit and/or counseling patient:
--- NOTE | 2019-07-18 11:23 | Discharge Summary ---
Date of Service July 18, 2019 Admission HPI Per Admitting Provider 43-year-old female with past medical history of severe fibrocystic disease of breast, some of her cysts were precancerous and patient was found to have BRCA 1/BRCA2 positive. A decision was made to do a total bilateral mastectomy done by Dr. Dow in 04/07/2019. Procedure was uneventful status post placement of expansion at the same time. For the last 3 days patient has been having intermittent fever, chills, clumsiness. Also has been having intermittent nausea and vomiting which she was not able to attribute fully to infection but thought it might be secondary to tamoxifen. She noticed evolving erythematous swelling on the right breast. Which became tender and swollen. No discharge. She noticed also slight erythema on the left breast so she came to the ED for further evaluation. Patient has a strong history of breast cancer in her mother, and her uncle from mother side Former smoker, quit smoking March 2019. Has history of hysterectomy due to endometriosis but still have her ovaries. Primary Care Provider: Jian Hatch MD Admission Exam Per Admitting Provider General patient appears to be comfortable, not in acute distress HEENT: Atraumatic , normocephalic /no jaundice /no pallor /anicteric /no dry mucous membrane /normal external ear inspection Neck: Supple /no swelling /central trach Heart: S1/S2 normal/regular rate and rhythm/no gallop /no rub /no murmur Lungs: Clear to auscultation bilaterally/normal chest with expansion/no rhonchi/no rales/no wheezing/no use of accessory muscles of respiration Abdomen: Soft/nontender/no guarding/no rebound/no organomegaly/no pulsatile mass Musculoskeletal: No swelling/no edema/no tenderness/normal range of motion Neuro exam: Awake alert oriented 3/cranial nerves II through XII appear to be intact/sensation intact/moves all extremities/no abnormal movements Psychiatric evaluation: No depressed mood/normal affect Skin: Right reconstructed breast appears to be swollen/tender/erythematous, left breast has much less erythema Extremity: Normal pulse/no pitting edema/no clubbing or cyanosis Endocrine/lymphatic: No obvious lymphadenopathy /no lymphedema Principal Diagnosis Cellulitis, Breast Abscess - RIGHT Discharge Exam Constitutional well developed, well nourished and cooperative; no acute distress Eyes PERRL, conjunctivae normal, anicteric sclerae ENMT external ear and nose normal, oropharynx normal Neck trachea midline, no thyromegaly Respiratory normal respiratory effort; no respiratory distress, no labored breathing, does not use accessory muscles and no cough Auscultation: + wheezes (RUL end-expiratory wheeze) Cardiovascular RRR, no murmur, no edema Rate/Rhythm: regular rate and regular rhythm Heart Sounds: normal S1 and normal S2 Extremities: + edema (lower extremity edema, non-pitting, much improved) Gastrointestinal (Abdomen) normal bowel sounds, soft, nontender, no hepatosplenomegaly Musculoskeletal no cyanosis or clubbing, extremities motor strength 5/5 Neurologic awake Speech / Cognition: no expressive aphasia Motor/Sensory: no sensory deficit Cranial Nerves: PERRL Psychiatric A+Ox3, euthymic affect Discharge Data Allergies Allergy/AdvReac Type Severity Reaction Status Date / Time hydrocodone Allergy Severe HIVES, Verified 07/22/19 13:40 CLOSING OF AIRWAY. CAN TAKE TYLENOL W/ CODEINE ibuprofen Allergy Severe HIVES, Verified 07/22/19 13:40 CLOSING OF AIRWAY lidocaine Allergy Severe Anaphylaxis Verified 07/22/19 13:40 Penicillins Allergy Severe Anaphylaxis Verified 07/22/19 13:40 propoxyphene Allergy Severe ANAPHYLAXIS Verified 07/22/19 13:40 onion Allergy Mild Hives Verified 07/22/19 13:40 clavulanic acid Allergy Unknown UNKNOWN Verified 07/22/19 13:40 oxycodone Allergy Unknown . Verified 07/22/19 13:40 procaine Allergy Unknown Unknown Verified 07/22/19 13:40 gabapentin AdvReac Mild Headache Verified 07/22/19 13:40 morphine AdvReac Mild NAUSEA AND Verified 07/22/19 13:40 VOMITING Consultations 07/13/19 14:50 ED Decision to Admit Stat 07/13/19 17:02 Consult Physician Stat Procedures Performed Operation Date: 07/16/19 07:30 Actual Procedures p Removal of Right Breast Tissue Triple Valve Tester with Right Breast Tissue Triple Valve Tester Replacement(Right) - Tawny Tripathi MD Ordered Studies 07/13/19 14:13 US breast RT limited CLINICAL HISTORY: 43 years-old Female presenting with has rim turning machine operator placed in March 2019, right breast pain, fever, eval for abscess. TECHNIQUE: Real-time grayscale ultrasound imaging of the right breast was performed for a focused evaluation at the site of clinical concern. Color Doppler ultrasound imaging was also performed. COMPARISON: Ultrasound and mammography from 01/13/2019. FINDINGS: Tissue rim turning machine operator in place new since prior mammogram. Fluid noted along the superficial aspect of the spacer, which is anechoic and measures 1.2 x 5.5 x 1.6 cm. This is at the 9:00 position. There is a separate component along the 3:00 position of the right breast which is more complex with internal septations measuring 1.6 x 6.0 x 2.8 cm. IMPRESSION: 1. Multifocal collections along the tissue rim turning machine operator both medially and laterally in immediate contact with the superficial aspect of the spacer. Sterility of these collections cannot be confirmed though postoperative seromas and/or hematomas are not unexpected. Breast surgical consultation advised. Development of an infection in these collections would be atypical given the time course of the rim turning machine operator placement assuming no recent intervention. Electronically signed by: Segundo Lepe M.D. 07/13/2019 6:39 PM 07/15/19 07:00 US FNA w/img 1st lesion Routine ULTRASOUND GUIDED ASPIRATION OF RIGHT BREAST FLUID COLLECTION CLINICAL HISTORY: fluid collection right breast. COMPARISON STUDY: Right breast ultrasound July 13, 2019. PROCEDURE: Sonography of the right breast demonstrated the spacer with adjacent fluid collection. This was targeted for aspiration. The procedure, Versed and benefits were discussed with the patient including the risk of bleeding, infect ion and injury to the spacer. Patient agreed to the procedure and informed written consent was obtained. The procedure was performed by Dr. Mcarthur following a timeout. Skin was prepped and draped in sterile fashion. No local anesthetic was utilized giving severe allergy. A 20-gauge needle was directed into the fluid. 10 cc of yellowish, minimally cloudy fluid was aspirated and sent to the laboratory for analysis. The needle was withdrawn. The patient tolerated the procedure well and no complications were evident. IMPRESSION: Successful ultrasound guided aspiration of 10 cc of yellowish, only minimally cloudy fluid from a right breast fluid collection. Electronically signed by: Enrico Mcarthur M.D. 07/15/2019 10:08 AM 07/15/19 11:19 US venous doppler LE CLINICAL HISTORY: 43 years-old Female presenting with left leg swelling, tender, and warm. TECHNIQUE: Real-time grayscale and color and spectral Doppler ultrasound imaging of the veins of the left lower extremity was performed. Compression and augmentation were also utilized. COMPARISON: None. FINDINGS: LEFT: Common femoral vein: Patent. Greater saphenous vein (superficial): Patent. Deep femoral vein: Patent. Femoral vein: Patent. Popliteal vein: Patent. Calf veins: Patent. Other: None. IMPRESSION: No evidence of deep venous thrombosis. Electronically signed by: Segundo Lepe M.D. 07/15/2019 2:43 PM Hospital Course (1) Cellulitis of right breast: * Patient has history of precancerous (+BRCA 1/BRCA 2) breast fibrocystic disease s/p multiple biopsies and eventual bilateral mastectomy by Dr. Dow and breast reconstruction by Dr. Tripathi March 2019- planned for rim turning machine operator exchange/implants July [address] Tripathi. * Admitted on 07/13 with Breast Cellulitis s/p bilateral mastectomy - Right Breast >> Left. Patient given IV Vanco/Cefepime. Ultrasound of Right Breast 07/13 shows two fluid collections in right breast, with subsequent Ultrasound Guided Aspiration 07/15 with 10cc yellowish, minimally clouded fluid. Patient to OR 07/[address] Tripathi for washout/exchange and drain placement. Patient afebrile, blood cultures without growth to date. Magnesium 1.7 with repeat 1.9 after replacement with 1g IV. * Erythema improved prior to discharge, and patient converted to oral Doxy/Cipro for pseudomonal coverage as outpatient for two weeks. 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 Venous doppler negative for DVT. Patient given HCTZ (#7) rx for edema prn as outpatient accounting for relatively low/normal baseline BP (3) Nausea & vomiting: * Refractory N/V despite zofran during hospital admission. Patient was given phenergan. (4) H/O: hysterectomy: * History of hysterectomy due to endometriosis. * Follows with Cami Payne PA-C as outpatient- patient still has ovaries and was told she will be on tamoxifen for a minimum of 2 years. * Continued tamoxifen (5) B12 deficiency: * Per patient- chronic- on B12 supplementation * Continued B12 Total Time Total Time Spent Total Time Spent (In Minutes): 60 Total Time Includes: Examination of the Patient, Discharge Planning, Medication Reconciliation, Communication With Other Providers and Other Discharge Plan Discharge Items Patient Disposition: Home - Self-Care Reason For Visit: CELLULITIS/BREAST ABSCESS Discharge Diagnosis: Cellulitis/Breast Abscess Goals: To prevent infection Activity: As commented below Activity Comment: As below Lifting Comment: As below Bathing Comment: As below Exercise Comment: As below Non-emergency contact: Primary Care Provider Call non-emergency contact if: you have any medication questions, your symptoms worsen and your pain is not controlled Follow-up/Referrals: Jian Hatch MD [Primary Care Provider] - Diet: Regular Addtl Attending Provider Instructions: ACTIVITY RECOMMENDATIONS: __Normal activities _X_No bending, lifting or straining __No driving _X_Driving allowed when you are off pain medications _X_Walking permitted __You should have help at home for ___ days DRESSINGS: __No dressings required _X_Keep dressings dry/in place until first office visit __Remove dressings ___ and leave dressings off __Apply ice ___ days __Remove dressings and reapply garment __Apply antibiotic ointment (Bacitracin, Neosporin, etc) to wounds 3-4 times/day for 10 days BATHING: _X_Keep dressings dry _X_Sponge bathing permitted- Please keep dressings dry. Keep water away from surgical dressings. __Showering permitted _X_No swimming, hot tubs or soaking in a tub MEDICATIONS: Resume previous medications unless instructed otherwise by your surgeon. _X_Do not use aspirin, Motrin, Advil or Ibuprofen as these may promote bleeding. Please use Tylenol. _X_Prescription(s) provided: The hospitalist service will provide you with a prescription for an antibiotic. You may need to take more than 1 antibiotic for the next 2 weeks. Please take this medication (these medications) as prescribed and complete the entire prescription (s). OTHER INSTRUCTIONS: _X_Record drain output 2-3 times per day SPECIAL CARE INSTRUCTIONS: * It is normal to have a mild fever after surgery. If your temperature is higher than 101.5 degrees F, please call the office at [phone]. * Constipation is a typical side effect of pain medication. An [id number] stool softener will help relieve this. * Leaking around surgical drains may occur and should not cause concern. Sometimes these drains become clogged. If this happens, remove the bulb and milk the clot out of the tube, then replace the bulb. * Drainage from wounds after liposuction is normal and should be expected. Garments will become soiled. You should protect furniture and bedding. This drainage should mostly subside within 2-3 days. Leave garments in place unless instructed to remove them. * If you have unusual drainage from a wound or are concerned you have an infection or have any questions or concerns, please call the office at [phone]. FOLLOW UP VISIT: If not already scheduled, please call the office, , when you return home after surgery to schedule an appointment to be seen in _4__ days or sooner if needed. Addtl [employer] Provider Instructions: You have been given a prescription for ciprofloxacin and doxycycline. You have also been given a prescription for probiotics (Lactobacillus) during this course of antibiotics. -Please take the full course of antibiotics unless otherwise instructed. You have also been given a short course of pain medications (Oxycodone) for breakthrough pain. You may take Tylenol (acetaminophen) every 4-6 hours as need, however DO NOT EXCEED 3,000mg in a 24 hour period. You have an appointment next week with Dr. Tripathi's office. Report to the ER if your symptoms worsen, your pain is uncontrollable, or for any worsening symptoms or concerns. Pending Studies at Discharge: No Stand-Alone Forms: [facility], Opioid Pain Management Medications and DC Order Prescriptions: New oxycodone 5 mg tablet 5 mg PO DAILY PRN (Reason: pain) Qty: 6 RF: 0 Lactobacillus acidophilus 1 billion cell capsule 1,000 mmu cells PO DAILY 14 Days Qty: 14 RF: 0 doxycycline hyclate 100 mg capsule 100 mg PO BID 14 Days Qty: 28 RF: 0 ciprofloxacin HCl [Cipro] 500 mg tablet 500 mg PO BID 14 Days Qty: 28 RF: 0 hydrochlorothiazide 12.5 mg capsule 12.5 mg PO .PRN Qty: 7 RF: 0 Continued Vitamin B-12 250 mcg tablet 250 mcg PO DAILY Qty: 90 RF: 3 tamoxifen 20 mg tablet 20 mg PO DAILY Qty: 30 RF: 2 albuterol sulfate [Ventolin HFA] 90 mcg/actuation HFA aerosol inhaler 2 puff INHALATION Q4H PRN (Reason: cough and wheezing) RF: 0 Discharge Orders: Discharge Order (Routine); Ordered 07/18/19 Ordered By: Mickie Hodgson Admission Data Admit Date/Time: 07/13/19 17:05 Attending Provider: Leonid Murdock Admit Provider: Roberto Quinn Primary Care Provider: Jian Hatch Other Providers: Tawny Tripathi Other Interventions: Discharge Summary Assessment (RN) Last Done: 07/18/19 10:07 DC Date/Time DO NOT enter until pt leaves facility: 07/18/19 14:22 Supervising Physician Co-Signing Physician Notes Attending Attestation and Discharge Note: Pt seen/examined, chart reviewed, discharge care plan d/w PA Mickie Hodgson. I agree w/ the foster components of her discharge documentation. 43yo female with h/o BRCA1/BRCA2 carrier state s/p b/l mastectomy 03/2019 and breast reconstruction with expanders who presented with concern of right breast cellulitis with ?abscess. Received broad-spectrum IV antibiotic therapy. Seen by Dr Tripathi, plastics. I/D of right breast fluid collection advised. This was done by radiology. Culture did not grow a specific pathogen while hospitalized. She ultimately required washout/rim turning machine operator exchange and placement of drain by Dr Tripathi of the right breast. Patient felt better following such. Cultures from that procedure also did not grow a specific pathogen. At discharge a course of oral cipro with doxy was recommended in light of the cellulitis/concern for abscess. LE edema likely was due to tamoxifen use in the setting of venous insufficiency. Discharge exam: gen - NAD heart - RRR, s1 s2 lungs - CTA b/l abd - soft chest - dressings intact ext - <1+ edema b/l, modestly worse on left Leonid Murdock MD
== END 2019-07-18 14:22 | disposition home or self-care (01) | DRG 585 ==
LOC: ED 13:20 → SUATTDRO 17:05 → 3N 17:05
DX: R07.9 Chest pain, unspecified; Z88.0 Allergy status to penicillin; Z88.4 Allergy status to anesthetic agent; E53.8 Deficiency of other specified B group vitamins; Z79.899 Other long term (current) drug therapy; J45.909 Unspecified asthma, uncomplicated; Z90.13 Acquired absence of bilateral breasts and nipples; Z80.3 Family history of malignant neoplasm of breast; Z87.891 Personal history of nicotine dependence; N61.0 Mastitis without abscess; Z98.82 Breast implant status; Z88.5 Allergy status to narcotic agent; R60.0 Localized edema; Z88.6 Allergy status to analgesic agent; I87.2 Venous insufficiency (chronic) (peripheral); R11.2 Nausea with vomiting, unspecified; Z90.710 Acquired absence of both cervix and uterus

== ENCOUNTER 2020-06-23 12:24 | Observation (INO) ==
[2020-06-23] MEDS ORDERED: ONDANSETRON INJ 2 MG/ML 2 ML VIAL IV STA (12:59)
[2020-06-23] MEDS ORDERED: SODIUM CHLORIDE 0.9% 1000ML 1,000 ML IV ONE (12:59)
--- NOTE | 2020-06-23 13:05 | Emergency Department Note ---
History of Present Illness General Chief complaint: GI Assessment Stated complaint: GASTRONITIS, VOMITING FOR WEEK, BLOOD IN STOOL Time Seen by Provider: 06/23/20 12:46 Source: patient, RN notes reviewed and old records reviewed Mode of arrival: ambulatory Limitations: no limitations History of Present Illness Maximum Pain Intensity: 7 This patient is a 44-year-old female who is sent over from the GI office after she called there saying she has had nausea vomiting and diarrhea with vomiting up blood. She is also had blood in her stool. She was scoped by Dr. Ghosh in April and had gastritis and hiatal hernia. She is had some chronic issues with swallowing as well. She is feeling weak all over she is had myalgias. She does not think she is been exposed to anybody with COVID and has had 2- Covid test in the past no known exposure she has had fevers off and on for the last 1 yesterday. No chest pain she does have occasional smoker's cough but denies shortness of breath. She has some mild diffuse abdominal pain that is intermittent Home Medications Home Medications Medication Instructions Recorded Confirmed Type ascorbic acid (vitamin C) [Vitamin 500 mg PO QAM 08/04/19 06/23/20 History C] cyanocobalamin (vitamin B-12) 250 mcg PO QAM 09/30/19 06/23/20 History [Vitamin B-12] albuterol sulfate 90 mcg/actuation 2 puff INHALATION Q4H PRN #18 gm 02/03/20 06/23/20 Rx aerosol inhaler ondansetron HCl 4 mg tablet 4 mg PO QID PRN #30 tab 02/03/20 06/23/20 Rx pantoprazole 40 mg PO QAM 06/23/20 06/23/20 History Allergies Allergy/AdvReac Type Severity Reaction Status Date / Time hydrocodone Allergy Severe HIVES, Verified 06/23/20 13:32 CLOSING OF AIRWAY. CAN TAKE TYLENOL W/ CODEINE ibuprofen Allergy Severe HIVES, Verified 06/23/20 13:32 CLOSING OF AIRWAY lidocaine Allergy Severe Anaphylaxis Verified 06/23/20 13:32 Penicillins Allergy Severe Anaphylaxis Verified 06/23/20 13:32 propoxyphene Allergy Severe ANAPHYLAXIS Verified 06/23/20 13:32 onion Allergy Mild Hives AND Verified 06/23/20 13:32 THROAT CLOSING clavulanic acid Allergy Unknown Hives Verified 06/23/20 13:32 oxycodone Allergy Unknown HIVES AND Verified 06/23/20 13:32 THROAT CLOSING procaine Allergy Unknown Anaphylaxis Verified 06/23/20 13:32 valacyclovir [From Valtrex] Allergy Rash Verified 06/23/20 13:32 gabapentin AdvReac Mild Headache Verified 06/23/20 13:32 morphine AdvReac Mild NAUSEA AND Verified 06/23/20 13:32 VOMITING Past Med/Surg History Medical History Asthma currently using PRN INH 2-3 x per day Cellulitis Depression Dysphagia Endometriosis Heart palpitations sees Dr. Baldwin every 2 years (in process of switching to [facility]) History of breast cancer chemo, mastectomy + reconstruction Hx of fibrocystic disease of breast Hypotension 90/60 norm Infected breast tissue siding applicator 07/16/19- Removal of right breast tissue siding applicator with right breast tissue siding applicator replacement- Dr. Tripathi Ketonuria Migraine Peripheral neuropathy Syncope reports last episode 3 days ago. reports frequently faints with increased stress/anxiety. PCP aware and monitoring. reports syncope workup negative thus far. Surgical History Encounter for breast reconstruction following mastectomy (04/07/19) s/p bilateral nipple sparing mastectomy for fibrocystic disease, 1st stage immediate reconstruction with TE/ADM complicated by right siding applicator infection, exchanged 08/09. Final implant exchange performed 10/07/19 Left Natrelle Inspira 450 SSF, right Natrelle Inspira 470 SSX History of anesthesia reaction "i usually have a panic attack as soon as i wake up" History of arthroscopy of left knee History of bilateral mastectomy History of breast biopsy multiple History of cholecystectomy History of colonoscopy History of dilatation and curettage x9 History of esophagogastroduodenoscopy (EGD) History of laparoscopy x2 for endometriosis History of partial hysterectomy History of tonsillectomy Slow to wake up after anesthesia Family History Mother Breast cancer Family history of reaction to anesthesia N/V. slow to wake Slow to wake up after anesthesia Father Family history of diabetes mellitus Colorectal cancer Family/Other Ovarian cancer Prostate cancer Family history of diabetes mellitus paternal aunts/uncles Father Family hx of colon cancer Grandfather Family hx of colon cancer Colorectal cancer Son Crohn's disease Family history of irritable bowel syndrome has crohn's Uncle Breast cancer Grandmother (Maternal) Myocardial infarction Denies family history of Lung cancer Social History Smoking Status: Current every day smoker Cigarettes Per Day: October 2018; Second Hand Exposure: Yes; Do You Dip or Chew Tobacco: No; Hx Alcohol Use: No Hx Substance Use: Yes Last Used Substance: Days (ago) Last Used Substance Other:: yesterday Preferred Language: Romanian Communication Ability: Effective Visual Impairment: No Limitations Hearing Ability: Normal Automobile Damage Appraiser Required: No Beliefs That Will Affect Care: None marital status: Life Partner Current Living Situation: Family Current Living Situation Comment: Lives with boyfriend current occupational status: disabled Other Information That Helps Us Care for You: No Feels Safe at Home: Yes Safety Concerns: Feels Safe At This Time Childhood Exposure to Second-Hand Smoke: Yes Dental Care, Regularly: Yes Physical Activity Frequency: 3-4 Times per Week Seatbelt Use: always Sunscreen Use: Yes Review of Systems A total of 10 systems reviewed and were otherwise negative She is not on any blood thinners. She was taking tamoxifen but stopped that in April on her own Physical Exam Vital Signs Vital Signs - 24 hr 06/23/20 12:27 06/23/20 13:15 06/23/20 13:17 Temperature 36.9 C Temperature Source Oral Pulse Rate 91 H 82 Pulse Rate from SpO2 Sensor Respiratory Rate 20 17 Blood Pressure 105/69 Blood Pressure Mean 81 Pulse Oximetry 99 98 Oxygen Delivery Method Room Air Room Air Sepsis Recent Fever Within 48 Hours No Sepsis New/Unexplained Change in Mental Status No Sepsis Action Taken by Nursing No Action Required 06/23/20 13:18 06/23/20 13:30 06/23/20 14:00 Temperature Temperature Source Pulse Rate 80 83 76 Pulse Rate from SpO2 Sensor 78 83 77 Respiratory Rate 15 13 20 Blood Pressure 106/73 108/74 126/73 Blood Pressure Mean 83 83 79 Pulse Oximetry 98 99 100 Oxygen Delivery Method Room Air Room Air Room Air Sepsis Recent Fever Within 48 Hours Sepsis New/Unexplained Change in Mental Status Sepsis Action Taken by Nursing 06/23/20 14:30 06/23/20 15:00 06/23/20 15:30 Temperature Temperature Source Pulse Rate 86 112 H 79 Pulse Rate from SpO2 Sensor 85 110 H 79 Respiratory Rate 21 31 H 20 Blood Pressure 107/69 120/76 111/80 Blood Pressure Mean 74 83 89 Pulse Oximetry 99 99 98 Oxygen Delivery Method Room Air Room Air Room Air Sepsis Recent Fever Within 48 Hours Sepsis New/Unexplained Change in Mental Status Sepsis Action Taken by Nursing General: Well developed well nourished middle-aged female who appears mildly uncomfortable but in no acute distress, breathing comfortably on room air. Normal speech HEENT: Normal cephalic atraumatic. Pupils are equal round and reactive to light. Extraocular movements are intact. Oropharynx is pink with moist mucous membranes. No swelling of the mouth lips or tongue. Neck: Supple with a midline trachea. No meningeal signs or stiffness, no JVD or bruits. No Stridor. Chest: Clear to auscultation bilaterally. No wheezes or rhonchi. No increased work of breathing. Heart: Regular rate and rhythm without murmurs or gallops. Abdomen: Soft, mildly diffusely tender, nondistended without rebound guarding or rigidity. Extremities: No cyanosis clubbing or edema. No calf tenderness or assymetry Spine/Back. Non tender to palpation. No CVA tenderness Skin: Good turgor without rashes. Neurologic exam: Cranial nerves two through 12 are intact. Motor and sensation are intact and symmetrical throughout. Course Administered Medications Promethazine HCl 6.25 mg/ (Sodium Chloride) 50.25 mls @ 201 mls/hr IV Q6H PRN PRN Reason: Nausea And Vomiting Stop: 07/23/20 17:13 Last Infusion: 06/23/20 18:31 Dose: 0 mls/hr Documented by: [id number] Admin: 06/23/20 18:12 Dose: 201 mls/hr Documented by: [id number] Potassium Chloride 40 meq/ (Dextrose/Sodium Chloride) 1,000 ml in 1,020 mls @ 125 mls/hr IV .Q8H10M CHATO Stop: 07/23/20 17:13 Last Admin: 06/23/20 18:09 Dose: 125 mls/hr Documented by: [id number] Discontinued Medications Sodium Chloride (Nss 1000ml) 1,000 mls @ 999 mls/hr IV .Q1H1M ONE Stop: 06/23/20 13:59 Last Infusion: 06/23/20 14:16 Dose: 0 mls/hr Documented by: [id number] Admin: 06/23/20 13:15 Dose: 999 mls/hr Documented by: [id number] Pantoprazole Sodium 80 mg/ (Dextrose) 100 mls @ 400 mls/hr IV ONE STA Stop: 06/23/20 14:55 Last Infusion: 06/23/20 15:24 Dose: 0 mls/hr Documented by: [id number] Admin: 06/23/20 15:09 Dose: 400 mls/hr Documented by: [id number] Potassium Chloride (K Tyler / Wtr) 10 meq in 100 mls @ 100 mls/hr IV 1615 ONE Stop: 06/23/20 17:14 Last Infusion: 06/23/20 18:14 Dose: 0 mls/hr Documented by: [id number] Admin: 06/23/20 16:12 Dose: 100 mls/hr Documented by: [id number] Ondansetron HCl (Ondansetron Inj 2 Mg/Ml 2 Ml Vial) 4 mg IV NOW STA Stop: 06/23/20 13:00 Last Admin: 06/23/20 13:15 Dose: 4 mg Documented by: [id number] Medical Decision Making Differential Diagnosis General: Well developed well nourished middle-age female who appears in no acute distress, breathing comfortably on room air. Normal speech HEENT: Normal cephalic atraumatic. Pupils are equal round and reactive to light. Clear anicteric. Extraocular movements are intact. Oropharynx is pink with moist mucous membranes. No swelling of the mouth lips or tongue. Neck: Supple with a midline trachea. No meningeal signs or stiffness, no JVD or bruits. No Stridor. Chest: Clear to auscultation bilaterally. No wheezes or rhonchi. No increased work of breathing. Heart: Regular rate and rhythm without murmurs or gallops. Abdomen: Soft, mildly diffusely tender, nondistended without rebound guarding or rigidity. Extremities: No cyanosis clubbing or edema. No calf tenderness or assymetry Spine/Back. Non tender to palpation. No CVA tenderness Skin: Good turgor without rashes. Neurologic exam: Cranial nerves two through 12 are intact. Motor and sensation are intact and symmetrical throughout. Medical Records Attestation: I reviewed the patient's medical records. Home Medications Current Medication List: was personally reviewed by me Laboratory Data Attestation: I reviewed the patient's lab results. Result diagrams: 06/23/20 17:56 06/23/20 13:15 Lab Results 06/23/20 06/23/20 06/23/20 Range/Units 13:10 13:10 13:15 WBC 6.86 (4.8-10.8) K/uL RBC 4.42 (4.2-5.4) M/uL Hgb 13.8 (12.0-16.0) g/dL Hct 39.5 (37-47) % MCV 89.4 (80-100) fL MCH 31.2 (25-34) pg MCHC 34.9 (32-36) g/dL RDW Std Deviation 43.1 (36.4-46.3) fL RDW Coeff of Magdiel 13.2 (11.5-14.5) % Plt Count 271 (130-400) K/uL MPV 9.3 (7.4-10.4) fL Immature Gran % (Auto) 0.1 % Neut % (Auto) 62.2 % Lymph % (Auto) 27.8 % [place] % (Auto) 8.6 % Eos % (Auto) 1.0 % Baso % (Auto) 0.3 % Neut # (Auto) 4.26 (1.4-6.5) K/uL Lymph # (Auto) 1.91 (1.2-3.4) K/uL [place] # (Auto) 0.59 (0.11-0.59) K/uL Eos # (Auto) 0.07 (0-0.5) K/uL Baso # (Auto) 0.02 (0-0.2) K/uL Immature Gran # (Auto) 0.01 (0.00-0.02) K/uL PT (9.0-12.0) Seconds INR (0.9-1.1) APTT (21.0-31.0) Seconds PTT Ratio Sodium (136-145) mmol/L Potassium (3.5-5.1) mmol/L Chloride (98-107) mmol/L Carbon Dioxide (21-32) mmol/L Anion Gap (3-11) BUN (7-18) mg/dl Creatinine (0.6-1.2) mg/dl Est Cr Clr Drug Dosing ml/min Est GFR ( Amer) Est GFR (Non-Af Amer) BUN/Creatinine Ratio (10-20) Glucose (70-99) mg/dl Calcium (8.5-10.1) mg/dl Total Bilirubin (0.2-1) mg/dl AST (15-37) U/L ALT (12-78) U/L Alkaline Phosphatase (45-117) U/L Total Protein (6.4-8.2) gm/dl Albumin (3.4-5.0) gm/dl Globulin (2.5-4.0) gm/dl Albumin/Globulin Ratio (0.9-2) Lipase (73-393) U/L Urine Color Urine Appearance (Clear) Urine pH (4.5-7.5) Ur Specific [place] (1.000-1.030) Urine Protein (Negative) Urine Glucose (UA) (Negative) Urine Ketones (Negative) Urine Blood (Negative) Urine Nitrite (Negative) Urine Bilirubin (Negative) Urine Urobilinogen (Negative) Ur Leukocyte Esterase (Negative) Urine WBC (Auto) (0-5) /hpf Urine RBC (Auto) (0-4) /hpf U Hyaline Cast (Auto) (0-5) /lpf U Epithel Cells (Auto) (0-5) /lpf Urine Bacteria (Auto) (Negative) Urine Opiates Screen (Neg) Ur Methadone, Qual (Neg) Urine Barbiturates (Neg) Ur Phencyclidine (PCP) (Neg) U Amphetamin/Meth Scrn (Neg) MDMA (Ecstasy) Screen (Neg) U Benzodiazepines Scrn (Neg) Ur Cocaine Metabolite (Neg) U Marijuana (THC) Screen (Neg) COVID-19 Eval Order Covid[address] [facility] COVID-19 PCR NEGATIVE (Negative) Blood Type Antibody Screen 06/23/20 06/23/20 06/23/20 Range/Units 13:15 13:15 13:23 WBC (4.8-10.8) K/uL RBC (4.2-5.4) M/uL Hgb (12.0-16.0) g/dL Hct (37-47) % MCV (80-100) fL MCH (25-34) pg MCHC (32-36) g/dL RDW Std Deviation (36.4-46.3) fL RDW Coeff of Magdiel (11.5-14.5) % Plt Count (130-400) K/uL MPV (7.4-10.4) fL Immature Gran % (Auto) % Neut % (Auto) % Lymph % (Auto) % [place] % (Auto) % Eos % (Auto) % Baso % (Auto) % Neut # (Auto) (1.4-6.5) K/uL Lymph # (Auto) (1.2-3.4) K/uL [place] # (Auto) (0.11-0.59) K/uL Eos # (Auto) (0-0.5) K/uL Baso # (Auto) (0-0.2) K/uL Immature Gran # (Auto) (0.00-0.02) K/uL PT 10.9 (9.0-12.0) Seconds INR 1.0 (0.9-1.1) APTT 25.4 (21.0-31.0) Seconds PTT Ratio 0.9 Sodium 143 (136-145) mmol/L Potassium 3.0 L (3.5-5.1) mmol/L Chloride 112 H (98-107) mmol/L Carbon Dioxide 23 (21-32) mmol/L Anion Gap 8.0 (3-11) BUN 13 (7-18) mg/dl Creatinine 0.68 (0.6-1.2) mg/dl Est Cr Clr Drug Dosing 91.3 ml/min Est GFR ( Amer) 123.3 Est GFR (Non-Af Amer) 106.4 BUN/Creatinine Ratio 19.1 (10-20) Glucose 85 (70-99) mg/dl Calcium 8.7 (8.5-10.1) mg/dl Total Bilirubin 0.6 (0.2-1) mg/dl AST 13 L (15-37) U/L ALT 19 (12-78) U/L Alkaline Phosphatase 68 (45-117) U/L Total Protein 6.7 (6.4-8.2) gm/dl Albumin 3.5 (3.4-5.0) gm/dl Globulin 3.2 (2.5-4.0) gm/dl Albumin/Globulin Ratio 1.1 (0.9-2) Lipase 54 L (73-393) U/L Urine Color Dark Yellow Urine Appearance Cloudy A (Clear) Urine pH 6.0 (4.5-7.5) Ur Specific [place] 1.035 H (1.000-1.030) Urine Protein Trace H (Negative) Urine Glucose (UA) Negative (Negative) Urine Ketones 4+ H (Negative) Urine Blood Negative (Negative) Urine Nitrite Negative (Negative) Urine Bilirubin Negative (Negative) Urine Urobilinogen Negative (Negative) Ur Leukocyte Esterase Negative (Negative) Urine WBC (Auto) 1-5 (0-5) /hpf Urine RBC (Auto) 0-4 (0-4) /hpf U Hyaline Cast (Auto) 10-30 H (0-5) /lpf U Epithel Cells (Auto) >30 H (0-5) /lpf Urine Bacteria (Auto) Negative (Negative) Urine Opiates Screen (Neg) Ur Methadone, Qual (Neg) Urine Barbiturates (Neg) Ur Phencyclidine (PCP) (Neg) U Amphetamin/Meth Scrn (Neg) MDMA (Ecstasy) Screen (Neg) U Benzodiazepines Scrn (Neg) Ur Cocaine Metabolite (Neg) U Marijuana (THC) Screen (Neg) COVID-19 Eval Order COVID-19 PCR (Negative) Blood Type Antibody Screen 06/23/20 06/23/20 Range/Units 13:23 13:30 WBC (4.8-10.8) K/uL RBC (4.2-5.4) M/uL Hgb (12.0-16.0) g/dL Hct (37-47) % MCV (80-100) fL MCH (25-34) pg MCHC (32-36) g/dL RDW Std Deviation (36.4-46.3) fL RDW Coeff of Magdiel (11.5-14.5) % Plt Count (130-400) K/uL MPV (7.4-10.4) fL Immature Gran % (Auto) % Neut % (Auto) % Lymph % (Auto) % [place] % (Auto) % Eos % (Auto) % Baso % (Auto) % Neut # (Auto) (1.4-6.5) K/uL Lymph # (Auto) (1.2-3.4) K/uL [place] # (Auto) (0.11-0.59) K/uL Eos # (Auto) (0-0.5) K/uL Baso # (Auto) (0-0.2) K/uL Immature Gran # (Auto) (0.00-0.02) K/uL PT (9.0-12.0) Seconds INR (0.9-1.1) APTT (21.0-31.0) Seconds PTT Ratio Sodium (136-145) mmol/L Potassium (3.5-5.1) mmol/L Chloride (98-107) mmol/L Carbon Dioxide (21-32) mmol/L Anion Gap (3-11) BUN (7-18) mg/dl Creatinine (0.6-1.2) mg/dl Est Cr Clr Drug Dosing ml/min Est GFR ( Amer) Est GFR (Non-Af Amer) BUN/Creatinine Ratio (10-20) Glucose (70-99) mg/dl Calcium (8.5-10.1) mg/dl Total Bilirubin (0.2-1) mg/dl AST (15-37) U/L ALT (12-78) U/L Alkaline Phosphatase (45-117) U/L Total Protein (6.4-8.2) gm/dl Albumin (3.4-5.0) gm/dl Globulin (2.5-4.0) gm/dl Albumin/Globulin Ratio (0.9-2) Lipase (73-393) U/L Urine Color Urine Appearance (Clear) Urine pH (4.5-7.5) Ur Specific [place] (1.000-1.030) Urine Protein (Negative) Urine Glucose (UA) (Negative) Urine Ketones (Negative) Urine Blood (Negative) Urine Nitrite (Negative) Urine Bilirubin (Negative) Urine Urobilinogen (Negative) Ur Leukocyte Esterase (Negative) Urine WBC (Auto) (0-5) /hpf Urine RBC (Auto) (0-4) /hpf U Hyaline Cast (Auto) (0-5) /lpf U Epithel Cells (Auto) (0-5) /lpf Urine Bacteria (Auto) (Negative) Urine Opiates Screen Neg (Neg) Ur Methadone, Qual Neg (Neg) Urine Barbiturates Neg (Neg) Ur Phencyclidine (PCP) Neg (Neg) U Amphetamin/Meth Scrn Neg (Neg) MDMA (Ecstasy) Screen Neg (Neg) U Benzodiazepines Scrn Neg (Neg) Ur Cocaine Metabolite Neg (Neg) U Marijuana (THC) Screen Pos H (Neg) COVID-19 Eval Order COVID-19 PCR (Negative) Blood Type A Positive Antibody Screen NEGATIVE Blood Pressure Blood Pressure Findings: Normal blood pressure MDM Narrative Patient comes in as described above. She has a history of gastritis and hiatal hernia, comes in after having episodes of vomiting blood and blood in her stool. She is hemodynamically stable. IV access was established and she was given a liter normal saline bolus and Zofran IV 4 mg. Multiple blood testing was obtained she was typed and screened. Given the fact that she may need to be admitted I did run a COVID test as well. She was reassessed frequently. Her hemoglobin is not significantly low. She has no sigmificant electrolyte or metabolic abnormalities. She was hydrated with normal saline. She has a 4+ ketones in her urine. Her Covid test was negative. She was typed and screened for possible blood transfusion. Given her symptoms I do think she needs to be admitted/observe for further GI work-up. I also gave her Protonix 80 mg IV bolus in the ED as well. Continuous cardiac monitoring: An order was placed for continuous cardiac monitoring. The patient was noted to be in normal sinus rhythm with a rate of 90. Impression & Plan Acute GI bleeding, Nausea & vomiting, Abdominal pain, COVID-19 ruled out by laboratory testing Discharge Plan Visit Data Chief Complaint: GI Assessment Stated Complaint: GASTRONITIS, VOMITING FOR WEEK, BLOOD IN STOOL ED Provider: Daniel Vogt Discharge Problem: Acute GI bleeding, Nausea & vomiting, Abdominal pain, COVID-19 ruled out by laboratory testing Patient Disposition: Admitted As Inpatient Discharge Instructions Interventions: ED Discharge Assessment Last Done: 06/23/20 16:26 Discharge Problem: Nausea & vomiting Qualifiers: Vomiting type: unspecified Vomiting Intractability: non-intractable Qualified Code(s): R11.2 - Nausea with vomiting, unspecified Abdominal pain Qualifiers: Abdominal location: upper abdomen, unspecified Qualified Code(s): R10.10 - Upper abdominal pain, unspecified
[2020-06-23 13:33] LABS: Basophils # (auto) 0.02 K/uL (0-0.2); Basophils % (auto) 0.3 %; Eosinophils # (auto) 0.07 K/uL (0-0.5); Hematocrit (blood only) 39.5 % (37-47); Hemoglobin 13.8 g/dL (12.0-16.0); Immature Granulocytes # (auto) 0.01 K/uL (0.00-0.02); Immature Granulocytes % (auto) 0.1 %; Lymphocytes # (auto) 1.91 K/uL (1.2-3.4); Lymphocytes % (auto) 27.8 %; Mean Corpuscular Hemoglobin 31.2 pg (25-34); Mean Corpuscular Hgb Conc 34.9 g/dL (32-36); Mean Corpuscular Volume 89.4 fL (80-100); Mean Platelet Volume 9.3 fL (7.4-10.4); Monocytes # (auto) 0.59 K/uL (0.11-0.59); Monocytes % (auto) 8.6 %; Neutrophils # (auto) 4.26 K/uL (1.4-6.5); Neutrophils % (auto) 62.2 %; Platelet Count 271 K/uL (130-400); RDW Coefficient of Variation 13.2 % (11.5-14.5); RDW Standard Deviation 43.1 fL (36.4-46.3); Red Blood Count 4.42 M/uL (4.2-5.4); White Blood Count 6.86 K/uL (4.8-10.8)
[2020-06-23 13:46] LABS: Partial Thromboplastin Ratio 0.9; Partial Thromboplastin Time 25.4 Seconds (21.0-31.0); Prothrombin Time 10.9 Seconds (9.0-12.0)
[2020-06-23 13:49] LABS: Appearance Urine Cloudy (Clear); Bacteria Urine Automated Negative (Negative); Blood Urine Negative (Negative); Color Urine Dark Yellow; Epithelial Cell Urine Auto >30 /lpf (0-5); Glucose Urine UA Negative (Negative); Ketones Urine 4+ (Negative); Leukocyte Esterase Urine Negative (Negative); Nitrite Urine Negative (Negative); Protein Urine Trace (Negative); RBC Urine Automated 0-4 /hpf (0-4); Specific Gravity Urine 1.035 (1.000-1.030); Urobilinogen Urine Negative (Negative)
[2020-06-23 13:51] LABS: Albumin Level 3.5 gm/dl (3.4-5.0); BUN Creatinine Ratio 19.1 (10-20); Calcium 8.7 mg/dl (8.5-10.1); Creatinine Clr Calc Pharmacy 91.3 ml/min; Est GFR (African American) 123.3; Est GFR (Non-African American) 106.4
[2020-06-23 13:54] LABS: Albumin Globulin Ratio 1.1 (0.9-2); Bilirubin,Total 0.6 mg/dl (0.2-1); Globulin 3.2 gm/dl (2.5-4.0); Total Protein 6.7 gm/dl (6.4-8.2)
[2020-06-23 14:02] LABS: Bilirubin Urine Negative (Negative); Ictotest Urine Negative (Negative)
[2020-06-23] MEDS ORDERED: PANTOprazole 80 MG in DEXTROSE 5% 100 ML IV STA (14:41)
--- NOTE | 2020-06-23 15:31 | History & Physical Report ---
Date of Service June 23, 2020 Assessment & Plan (1) Coffee ground vomiting: Hemoglobin 13.8. N.p.o. with IV fluids Consult information security officer for consideration of EGD/colonoscopy (2) Nausea and vomiting: Appears to be longstanding. Suspected to be due to prior tamoxifen use given correlation with this. On review of previous labs -previous THC use. Will repeat urine drug profile to see if this is contributing. Ondansetron 4 mg IV q6h PRN (first-line), Phenergan 6.25 mg IV q6h PRN (second line, reduced dose due to extensive side effects) (3) Diarrhea: Possibly secondary to pantoprazole use given correlation. We will continue IV pantoprazole for now due to concern for bleeding. Son with Crohn's disease however unclear whether this is on her side or his father's side as father's family history unknown. (4) Blood in stool: FOB negative in ER continue to monitor for blood in stool. (5) B12 deficiency: Continue supplementation for this (6) Bipolar 1 disorder: (7) Gastritis: Consider holding pantoprazole if EGD unremarkable. (8) Ketonuria: Longstanding history of this related to poor p.o. intake with IBS-C, nausea and vomiting History of Present Illness Chief Complaint: Vomiting, diarrhea Primary Care Provider: NO PCP Te Gallardo is a 44-year-old female who presents to the ER on the advice of her information security officer with coffee-ground vomiting, diarrhea. This is been going on for last 2 weeks after starting pantoprazole for gastritis seen on EGD. Is been getting progressively worse during this time. She reports having diarrhea all night long and even incontinence during her sleep. She last ate and drank 9 PM yesterday. Mainly vomiting yellow bile mucus but on occasion has been coffee-ground. She reports dark red blood in her diarrhea. She also reports dysphagia with a feeling of the lump on the right side. This is currently under investigation by her information security officer with plan CT neck as an outpatient. She denies any recent video swallow or speech consult. She has had multiple gastric problems after taking tamoxifen for the last year. However her problems of continued despite stopping this 1.5 months ago. 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 Since then she has had a bilateral nipple sparing mastectomy. She reports recent bracket testing performed by Dr. Nugent was negative therefore tamoxifen was stopped. She reports a lot of her problems have stemmed from taking tamoxifen and as her nausea and vomiting started the same day that she first took this. She also reports IBS-C with multiple colonoscopies in the past also due to family history of colon cancer. Her last colonoscopy was 2 years ago which she reports was unremarkable. Her son has Crohn's disease but unknown whether this runs on his father's side. No other history of inflammatory bowel disease on her mother side of the family however she has a significant family history of colon cancer. Allergies Allergy/AdvReac Type Severity Reaction Status Date / Time hydrocodone Allergy Severe HIVES, Verified 06/23/20 13:32 CLOSING OF AIRWAY. CAN TAKE TYLENOL W/ CODEINE ibuprofen Allergy Severe HIVES, Verified 06/23/20 13:32 CLOSING OF AIRWAY lidocaine Allergy Severe Anaphylaxis Verified 06/23/20 13:32 Penicillins Allergy Severe Anaphylaxis Verified 06/23/20 13:32 propoxyphene Allergy Severe ANAPHYLAXIS Verified 06/23/20 13:32 onion Allergy Mild Hives AND Verified 06/23/20 13:32 THROAT CLOSING clavulanic acid Allergy Unknown Hives Verified 06/23/20 13:32 oxycodone Allergy Unknown HIVES AND Verified 06/23/20 13:32 THROAT CLOSING procaine Allergy Unknown Anaphylaxis Verified 06/23/20 13:32 valacyclovir [From Valtrex] Allergy Rash Verified 06/23/20 13:32 gabapentin AdvReac Mild Headache Verified 06/23/20 13:32 morphine AdvReac Mild NAUSEA AND Verified 06/23/20 13:32 VOMITING Home Medications Home Medications Medication Instructions Recorded Confirmed Type ascorbic acid (vitamin C) [Vitamin 500 mg PO QAM 08/04/19 06/23/20 History C] cyanocobalamin (vitamin B-12) 250 mcg PO QAM 09/30/19 06/23/20 History [Vitamin B-12] albuterol sulfate 90 mcg/actuation 2 puff INHALATION Q4H PRN #18 gm 02/03/20 06/23/20 Rx aerosol inhaler ondansetron HCl 4 mg tablet 4 mg PO QID PRN #30 tab 02/03/20 06/23/20 Rx famotidine 20 mg PO DAILY #7 tab 06/24/20 Rx pantoprazole 40 mg PO QAM #30 tab 06/24/20 Rx Past Med/Surg History Medical History Asthma currently using PRN INH 2-3 x per day Cellulitis Depression Dysphagia Endometriosis Heart palpitations sees Dr. Baldwin every 2 years (in process of switching to [facility]) History of breast cancer chemo, mastectomy + reconstruction Hx of fibrocystic disease of breast Hypotension 90/60 norm Infected breast tissue rn mds coordinator 07/16/19- Removal of right breast tissue rn mds coordinator with right breast tissue rn mds coordinator replacement- Dr. Tripathi Ketonuria Migraine Peripheral neuropathy Syncope reports last episode 3 days ago. reports frequently faints with increased stress/anxiety. PCP aware and monitoring. reports syncope workup negative thus far. Surgical History Encounter for breast reconstruction following mastectomy (04/07/19) s/p bilateral nipple sparing mastectomy for fibrocystic disease, 1st stage immediate reconstruction with TE/ADM complicated by right rn mds coordinator infection, exchanged 08/09. Final implant exchange performed 10/07/19 Left Natrelle Inspira 450 SSF, right Natrelle Inspira 470 SSX History of anesthesia reaction "i usually have a panic attack as soon as i wake up" History of arthroscopy of left knee History of bilateral mastectomy History of breast biopsy multiple History of cholecystectomy History of colonoscopy History of dilatation and curettage x9 History of esophagogastroduodenoscopy (EGD) History of laparoscopy x2 for endometriosis History of partial hysterectomy History of tonsillectomy Slow to wake up after anesthesia Family History Mother Breast cancer Family history of reaction to anesthesia N/V. slow to wake Slow to wake up after anesthesia Father Family history of diabetes mellitus Colorectal cancer Family/Other Ovarian cancer Prostate cancer Family history of diabetes mellitus paternal aunts/uncles Father Family hx of colon cancer Grandfather Family hx of colon cancer Colorectal cancer Son Crohn's disease Family history of irritable bowel syndrome has crohn's Uncle Breast cancer Grandmother (Maternal) Myocardial infarction Denies family history of Lung cancer Social History Smoking Status: Current every day smoker Cigarettes Per Day: October 2018; Second Hand Exposure: Yes; Hx Alcohol Use: No Hx Substance Use: Yes Last Used Substance: Days (ago) Last Used Substance Other:: yesterday Preferred Language: Vietnamese Communication Ability: Effective Visual Impairment: No Limitations Hearing Ability: Normal 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 Beliefs That Will Affect Care: None marital status: Life Partner Current Living Situation: Family Current Living Situation Comment: Lives with boyfriend current occupational status: disabled Feels Safe at Home: Yes Childhood Exposure to Second-Hand Smoke: Yes Dental Care, Regularly: Yes Physical Activity Frequency: 3-4 Times per Week Seatbelt Use: always Sunscreen Use: Yes Review of Systems Review of Systems: All systems reviewed & are unremarkable except as noted in HPI & below Physical Exam Constitutional: well developed; + not well nourished and no acute distress Eyes: + anicteric sclerae; normal pupil size ENMT: external ear and nose normal, oropharynx normal Neck: trachea midline, no thyromegaly + neck tender (Bilateral) Respiratory: normal respiratory effort, lungs clear to auscultation Cardiovascular: RRR, no murmur, no edema Gastrointestinal (Abdomen): Inspection/Auscultation: abdomen normal to inspection and normal bowel sounds; abdomen not distended Percussion/ Palpation: + abdomen tender (Generalized), + guarding and abdomen soft; abdomen not rigid Musculoskeletal: no cyanosis or clubbing, extremities motor strength 5/5 Skin: no rashes, warm and dry Neurologic: moves all extremities and awake; not confused Psychiatric: A+Ox3, euthymic affect Genitourinary: no CVA tenderness Lymphatic: no cervical or axillary lymphadenopathy Results & Data Results & Data ([facility]) Vital Signs (Past 12 Hours) Vital Signs Temp Pulse Resp BP Pulse Ox 06/23/20 15:00 112 H 31 H 120/76 99 06/23/20 14:30 86 21 107/69 99 06/23/20 14:00 76 20 126/73 100 06/23/20 13:30 83 13 108/74 99 06/23/20 13:18 80 15 106/73 98 06/23/20 13:17 82 17 06/23/20 13:15 98 06/23/20 12:27 36.9 C 91 H 20 105/69 99 Code Status & VTE Plan Code Status Full VTE Prophylaxis Plan VTE Prophylaxis will be ordered: No PG Care Time/CCT Total # of Minutes Spent Total Time Spent with Patient: Total time spent is greater than 50% in coordination of care (as documented) at patient's floor/unit and/or counseling patient: Coding Level of Care Code 23616 OBS Care - Level 3 Diagnoses Coffee ground vomiting K92.0 Nausea and vomiting R11.2 Diarrhea R19.7 Blood in stool K92.1 B12 deficiency E53.8 Bipolar 1 disorder F31.9 Gastritis K29.70 Ketonuria R82.4
[2020-06-23] MEDS ORDERED: POTASSIUM CHLORIDE / WTR 10 MEQ/100 ML PLCT IV ONE (16:15)
[2020-06-23 16:38] LABS: Amphetamines+Metham, Urine Neg (Neg); Barbiturates, Urine Neg (Neg); Benzodiazepine, Urine Neg (Neg); Cocaine, Urine Neg (Neg); MDMA (Ecstacy), Urine Neg (Neg); Methadone, Urine Neg (Neg); Opiate, Urine Neg (Neg); Phencyclidine, Urine Neg (Neg)
[2020-06-23 18:07] LABS: Hematocrit (blood only) 41.1 % (37-47); Hemoglobin 13.9 g/dL (12.0-16.0)
[2020-06-23] MEDS: POTASSIUM CHLORIDE 40 MEQ in D5W AND 1/2NSS 1,000 ML/1,000 ML BAG IV SCH (18:09)
[2020-06-23] MEDS: PROMETHAZINE HCL 6.25 MG in SODIUM CHLORIDE 0.9% 50 ML IV PRN (18:12)
[2020-06-23] MEDS: ONDANSETRON INJ 2 MG/ML 2 ML VIAL IV PRN (23:25)
[2020-06-24] MEDS: POTASSIUM CHLORIDE 40 MEQ in D5W AND 1/2NSS 1,000 ML/1,000 ML BAG IV SCH ×2 (02:08→10:19)
[2020-06-24] MEDS: PROMETHAZINE HCL 6.25 MG in SODIUM CHLORIDE 0.9% 50 ML IV PRN ×2 (02:36→08:51)
[2020-06-24 06:20] LABS: Basophils # (auto) 0.02 K/uL (0-0.2); Basophils % (auto) 0.3 %; Eosinophils % (auto) 1.7 %; Hematocrit (blood only) 37.7 % (37-47); Hemoglobin 12.9 g/dL (12.0-16.0); Immature Granulocytes # (auto) 0.01 K/uL (0.00-0.02); Immature Granulocytes % (auto) 0.2 %; Lymphocytes # (auto) 2.33 K/uL (1.2-3.4); Lymphocytes % (auto) 39.7 %; Mean Corpuscular Hemoglobin 31.2 pg (25-34); Mean Corpuscular Hgb Conc 34.2 g/dL (32-36); Mean Corpuscular Volume 91.3 fL (80-100); Mean Platelet Volume 9.1 fL (7.4-10.4); Monocytes # (auto) 0.57 K/uL (0.11-0.59); Monocytes % (auto) 9.7 %; Neutrophils # (auto) 2.84 K/uL (1.4-6.5); Neutrophils % (auto) 48.4 %; Platelet Count 220 K/uL (130-400); RDW Coefficient of Variation 13.4 % (11.5-14.5); RDW Standard Deviation 44.6 fL (36.4-46.3); Red Blood Count 4.13 M/uL (4.2-5.4); White Blood Count 5.87 K/uL (4.8-10.8)
[2020-06-24] MEDS: ONDANSETRON INJ 2 MG/ML 2 ML VIAL IV PRN (06:24)
[2020-06-24 07:04] LABS: Albumin Level 3.1 gm/dl (3.4-5.0); BUN Creatinine Ratio 14.9 (10-20); Calcium 8.2 mg/dl (8.5-10.1); Creatinine Clr Calc Pharmacy 103.4 ml/min; Est GFR (African American) 127.8; Est GFR (Non-African American) 110.3; Potassium 3.9 mmol/L (3.5-5.1)
[2020-06-24 07:15] LABS: Albumin Globulin Ratio 1.2 (0.9-2); Bilirubin,Total 0.5 mg/dl (0.2-1); Globulin 2.6 gm/dl (2.5-4.0); Total Protein 5.7 gm/dl (6.4-8.2)
--- NOTE | 2020-06-24 10:52 | Gastrointestinal Consultation ---
Date of Consultation June 24, 2020 Assessment & Plan (1) Nausea & vomiting: (2) Abdominal pain: (3) Diarrhea: Diff dx: CHS vs viral enteritis vs bacterial enteritis vs gastritis vs other. 1. She remains hemodynamically stable and heme negative. Therefore, no plan for invasive GI work up at this time. 2. Await stool studies as ordered. 3. Continue Pantoprazole 40 mg daily. 4. Proceed with CT neck/chest imaging as ordered. Could consider adding abdomen/pelvis as well. 5. Continue supportive care. Thank you for allowing us to participate in the care of this patient. If you have questions or concerns, please do not hesitate to contact us at [phone] or [phone]. Supervising Physician Co-Signing Physician Notes I personally evaluated the patient and agree with the findings as documented by EMY Mendenhall Exam: abd: soft, moderate LUQ tenderness, nd obtain CT imaging as ordered, can add abdomen/pelvis as well if inclined. continue PPI for now. History of Present Illness Reason for Consultation: Diarrhea, Coffee ground emesis Requesting Physician: Dr. Pan Attending Physician: Reji Lara DO History of Present Illness Patient is a 44 year-old female with a history of dysphagia seen by Dr. Ghosh for an EGD on 05/10/2020. She did not have any endoscopic abnormality of the esophagus to explain her symptoms but was found to have gastritis and was prescribed Protonix 40 mg daily. She had a telehealth visit with Hanny Reagan PA-C two days post procedure due to ongoing symptoms of dysphagia and reports of feeling something compressing her esophagus externally. Due to this, a CT head/neck/chest was ordered and is scheduled for tomorrow. Prior to testing, however, she did present to the ER last evening after contacting the office reporting coffee-ground emesis/bilious, nausea and abdominal pain with diarrhea. COVID-19 testing was performed and negative. She also had a negative C Diff PCR although culture remains pending. Labs were reviewed and unremarkable with the exception fo a mild hypokalemia which has been repleted (3.9 today). H&H has remained normal and she was heme negative in the ER. N/V reportedly not improved by Zofran but improved only by Phenergan. Describes pain in the epigastric region with radiation into the bilateral lower quadrants. Last colonoscopy was 2 years ago. She does endorse that she stopped her PPI two days prior to arrival due to lack of access. She also is a daily THC user. Past surgical history reviewed and significant for prior cholecystectomy and hysterectomy. Allergies Allergy/AdvReac Type Severity Reaction Status Date / Time hydrocodone Allergy Severe HIVES, Verified 06/23/20 13:32 CLOSING OF AIRWAY. CAN TAKE TYLENOL W/ CODEINE ibuprofen Allergy Severe HIVES, Verified 06/23/20 13:32 CLOSING OF AIRWAY lidocaine Allergy Severe Anaphylaxis Verified 06/23/20 13:32 Penicillins Allergy Severe Anaphylaxis Verified 06/23/20 13:32 propoxyphene Allergy Severe ANAPHYLAXIS Verified 06/23/20 13:32 onion Allergy Mild Hives AND Verified 06/23/20 13:32 THROAT CLOSING clavulanic acid Allergy Unknown Hives Verified 06/23/20 13:32 oxycodone Allergy Unknown HIVES AND Verified 06/23/20 13:32 THROAT CLOSING procaine Allergy Unknown Anaphylaxis Verified 06/23/20 13:32 valacyclovir [From Valtrex] Allergy Rash Verified 06/23/20 13:32 gabapentin AdvReac Mild Headache Verified 06/23/20 13:32 morphine AdvReac Mild NAUSEA AND Verified 06/23/20 13:32 VOMITING Home Medications Home Medications Medication Instructions Recorded Confirmed Type ascorbic acid (vitamin C) [Vitamin 500 mg PO QAM 08/04/19 06/23/20 History C] cyanocobalamin (vitamin B-12) 250 mcg PO QAM 09/30/19 06/23/20 History [Vitamin B-12] albuterol sulfate 90 mcg/actuation 2 puff INHALATION Q4H PRN #18 gm 02/03/20 06/23/20 Rx aerosol inhaler ondansetron HCl 4 mg tablet 4 mg PO QID PRN #30 tab 02/03/20 06/23/20 Rx pantoprazole 40 mg PO QAM 06/23/20 06/23/20 History Patient History Medical History Asthma currently using PRN INH 2-3 x per day Cellulitis Depression Dysphagia Endometriosis Heart palpitations sees Dr. Baldwin every 2 years (in process of switching to [facility]) History of breast cancer chemo, mastectomy + reconstruction Hx of fibrocystic disease of breast Hypotension 90/60 norm Infected breast tissue senior wind energy consultant 07/16/19- Removal of right breast tissue senior wind energy consultant with right breast tissue senior wind energy consultant replacement- Dr. Tripathi Ketonuria Migraine Peripheral neuropathy Syncope reports last episode 3 days ago. reports frequently faints with increased stress/anxiety. PCP aware and monitoring. reports syncope workup negative thus far. Surgical History Encounter for breast reconstruction following mastectomy (04/07/19) s/p bilateral nipple sparing mastectomy for fibrocystic disease, 1st stage immediate reconstruction with TE/ADM complicated by right senior wind energy consultant infection, exchanged 08/09. Final implant exchange performed 10/07/19 Left Natrelle Inspira 450 SSF, right Natrelle Inspira 470 SSX History of anesthesia reaction "i usually have a panic attack as soon as i wake up" History of arthroscopy of left knee History of bilateral mastectomy History of breast biopsy multiple History of cholecystectomy History of colonoscopy History of dilatation and curettage x9 History of esophagogastroduodenoscopy (EGD) History of laparoscopy x2 for endometriosis History of partial hysterectomy History of tonsillectomy Slow to wake up after anesthesia Family History Mother Breast cancer Family history of reaction to anesthesia N/V. slow to wake Slow to wake up after anesthesia Father Family history of diabetes mellitus Colorectal cancer Family/Other Ovarian cancer Prostate cancer Family history of diabetes mellitus paternal aunts/uncles Father Family hx of colon cancer Grandfather Family hx of colon cancer Colorectal cancer Son Crohn's disease Family history of irritable bowel syndrome has crohn's Uncle Breast cancer Grandmother (Maternal) Myocardial infarction Denies family history of Lung cancer Social History Smoking Status: Current every day smoker Cigarettes Per Day: October 2018; Second Hand Exposure: Yes; Do You Dip or Chew Tobacco: No; Hx Alcohol Use: No Hx Substance Use: Yes Last Used Substance: Days (ago) Last Used Substance Other:: yesterday Preferred Language: Swedish Communication Ability: Effective Visual Impairment: No Limitations Hearing Ability: Normal 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 Beliefs That Will Affect Care: None marital status: Life Partner Current Living Situation: Family Current Living Situation Comment: Lives with boyfriend current occupational status: disabled Other Information That Helps Us Care for You: No Feels Safe at Home: Yes Safety Concerns: Feels Safe At This Time Childhood Exposure to Second-Hand Smoke: Yes Dental Care, Regularly: Yes Physical Activity Frequency: 3-4 Times per Week Seatbelt Use: always Sunscreen Use: Yes Review of Systems Constitutional: no fever and no chills Eyes: no problem reported Ear, Nose, Mouth, Throat: as per Subjective / HPI Respiratory: + dyspnea; no cough Cardiovascular: as per Subjective / HPI; no dyspnea and no dyspnea at rest Gastrointestinal: as per Subjective / HPI Genitourinary: no problem reported Musculoskeletal: no problem reported Integumentary: no problem reported Neurologic: no problem reported Psychiatric: no depression and no anxiety Endocrine: no problem reported Hematologic / Lymphatic: no problem reported Allergy / Immunological: no problem reported Physical Exam Constitutional: WD/WN, vitals as above well developed and well nourished Eyes: EOM intact bilaterally Neck: normal visual inspection Respiratory: normal respiratory effort, lungs clear to auscultation Cardiovascular: RRR, no murmur, no edema Gastrointestinal (Abdomen): Inspection/Auscultation: abdomen normal to inspection and normal bowel sounds; abdomen not distended Percussion/Palpation: + abdomen tender (diffusely) and abdomen soft Musculoskeletal: Extremities: extremities normal to inspection Skin: no rashes, warm and dry Psychiatric: A+Ox3, euthymic affect Results & Data ([facility]) Vital Signs (Past 12 Hours) Vital Signs Temp Pulse Pulse Resp BP Pulse Ox 06/24/20 07:26 68 06/24/20 07:13 36.7 C 78 16 93/54 L 100 06/24/20 03:00 36.8 C 67 20 102/63 96 06/24/20 01:10 60 Laboratory Results Abnormal lab results 06/23/20 06/23/20 06/23/20 Range/Units 13:15 13:23 13:23 RBC (4.2-5.4) M/uL Potassium 3.0 L (3.5-5.1) mmol/L Chloride 112 H (98-107) mmol/L Glucose (70-99) mg/dl Calcium (8.5-10.1) mg/dl AST 13 L (15-37) U/L Total Protein (6.4-8.2) gm/dl Albumin (3.4-5.0) gm/dl Lipase 54 L (73-393) U/L Urine Appearance Cloudy A (Clear) Ur Specific [place] 1.035 H (1.000-1.030) Urine Protein Trace H (Negative) Urine Ketones 4+ H (Negative) U Hyaline Cast (Auto) 10-30 H (0-5) /lpf U Epithel Cells (Auto) >30 H (0-5) /lpf U Marijuana (THC) Screen Pos H (Neg) 06/24/20 06/24/20 Range/Units 06:07 06:07 RBC 4.13 L (4.2-5.4) M/uL Potassium (3.5-5.1) mmol/L Chloride 114 H (98-107) mmol/L Glucose 104 H (70-99) mg/dl Calcium 8.2 L (8.5-10.1) mg/dl AST 10 L (15-37) U/L Total Protein 5.7 L (6.4-8.2) gm/dl Albumin 3.1 L (3.4-5.0) gm/dl Lipase (73-393) U/L Urine Appearance (Clear) Ur Specific [place] (1.000-1.030) Urine Protein (Negative) Urine Ketones (Negative) U Hyaline Cast (Auto) (0-5) /lpf U Epithel Cells (Auto) (0-5) /lpf U Marijuana (THC) Screen (Neg) PG Care Time/CCT Total # of Minutes Spent Total Time Spent with Patient: Total time spent is greater than 50% in coordination of care (as documented) at patient's floor/unit and/or counseling patient: Coding Level of Care Code 43216 Inpt Consult Level 4 Diagnoses Nausea & vomiting R11.2 Vomiting Intractability: non-intractable Vomiting type: unspecified Abdominal pain R10.10 Abdominal location: upper abdomen, unspecified Diarrhea R19.7 (1) Nausea & vomiting Vomiting Intractability: non-intractable Vomiting type: unspecified Qualified Code(s): R11.2 - Nausea with vomiting, unspecified (2) Abdominal pain Abdominal location: upper abdomen, unspecified Qualified Code(s): R10.10 - Up per abdominal pain, unspecified
[2020-06-24] MEDS ORDERED: PANTOprazole 40 MG in SYRINGE 0 ML IV SCH (11:00)
--- NOTE | 2020-06-24 12:49 | Discharge Summary ---
Date of Service June 24, 2020 Admission HPI Per Admitting Provider Te Gallardo is a 44-year-old female who presents to the ER on the advice of her bank president with coffee-ground vomiting, diarrhea. This is been going on for last 2 weeks after starting pantoprazole for gastritis seen on EGD. Is been getting progressively worse during this time. She reports having diarrhea all night long and even incontinence during her sleep. She last ate and drank 9 PM yesterday. Mainly vomiting yellow bile mucus but on occasion has been coffee- ground. She reports dark red blood in her diarrhea. She also reports dysphagia with a feeling of the lump on the right side. This is currently under investigation by her bank president with plan CT neck as an outpatient. She denies any recent video swallow or speech consult. She has had multiple gastric problems after taking tamoxifen for the last year. However her problems of continued despite stopping this 1.5 months ago. 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 Since then she has had a bilateral nipple sparing mastectomy. She reports recent bracket testing performed by Dr. Nugent was negative therefore tamoxifen was stopped. She reports a lot of her problems have stemmed from taking tamoxifen and as her nausea and vomiting started the same day that she first took this. She also reports IBS-C with multiple colonoscopies in the past also due to family history of colon cancer. Her last colonoscopy was 2 years ago which she reports was unremarkable. Her son has Crohn's disease but unknown whether this runs on his father's side. No other history of inflammatory bowel disease on her mother side of the family however she has a significant family history of colon cancer. Principal Diagnosis nausea, vomiting, coffee ground emesis Discharge Exam Constitutional WD/WN, vitals as above well developed and well nourished Eyes EOM intact bilaterally Neck normal visual inspection Respiratory normal respiratory effort, lungs clear to auscultation Cardiovascular RRR, no murmur, no edema Gastrointestinal (Abdomen) Inspection/Auscultation: abdomen normal to inspection and normal bowel sounds; abdomen not distended Percussion/Palpation: + abdomen tender (diffusely) and abdomen soft Skin no rashes, warm and dry Discharge Data Allergies Allergy/AdvReac Type Severity Reaction Status Date / Time hydrocodone Allergy Severe HIVES, Verified 06/23/20 13:32 CLOSING OF AIRWAY. CAN TAKE TYLENOL W/ CODEINE ibuprofen Allergy Severe HIVES, Verified 06/23/20 13:32 CLOSING OF AIRWAY lidocaine Allergy Severe Anaphylaxis Verified 06/23/20 13:32 Penicillins Allergy Severe Anaphylaxis Verified 06/23/20 13:32 propoxyphene Allergy Severe ANAPHYLAXIS Verified 06/23/20 13:32 onion Allergy Mild Hives AND Verified 06/23/20 13:32 THROAT CLOSING clavulanic acid Allergy Unknown Hives Verified 06/23/20 13:32 oxycodone Allergy Unknown HIVES AND Verified 06/23/20 13:32 THROAT CLOSING procaine Allergy Unknown Anaphylaxis Verified 06/23/20 13:32 valacyclovir [From Valtrex] Allergy Rash Verified 06/23/20 13:32 gabapentin AdvReac Mild Headache Verified 06/23/20 13:32 morphine AdvReac Mild NAUSEA AND Verified 06/23/20 13:32 VOMITING Consultations 06/23/20 14:46 ED Decision to Admit Stat 06/23/20 17:14 Consult Gastroenterology Routine Hospital Course (1) Nausea & vomiting: Patient is a 44 year old female that presented to the ED for concerns of coffee-ground vomiting and diarrhea that had been ongoing for 2 weeks and worsened acutely. Prior to being provided with discharge instructions patient had left AMA Nausea and Vomiting -Longstanding, has been following with GI -Recent EGD noting gastritis for which patient was started on Pantoprazole (ran out 2 days ago) -Concern for coffee ground emesis per report of patient, but not noted by current staff when discussed with nursing -Hgb stable -Heme-occult negative -Recommend patient continue Pantoprazole and add on Famotidine x7 days -Recommend close follow up with GI -Prior to being able to give patient discharge instructions patient left AMA due to "needing a smoke." (2) Abdominal pain: (3) Coffee ground vomiting: (4) Bipolar 1 disorder: Total Time Total Time Spent Total Time Spent (In Minutes): <30 Discharge Plan Discharge Items Patient Disposition: Home - Self-Care Reason For Visit: DIARRHEAL ILLNESS, COFFEE GROUND VOMITING Discharge Diagnosis: vomiting - improved Activity: Resume your previous activity Non-emergency contact: Primary Care Provider and Oncologist Call non-emergency contact if: you have any medication questions Follow-up/Referrals: PCP,NO [Primary Care Provider] - Diet: Regular Addtl Attending Provider Instructions: vomiting -more than likely, your supposition that the gastritis caused you to have nausea and vomiting (and probably some irritation of that causing the coffee ground appearance) is most likely correct -fortunately your vital signs have stayed completely stable (with serious blood loss, often the first thing we will see is heart rates go up - and yours has stayed totally normal) -your blood counts are overall stable -- the "change" you're seeing in your labs - of hemoglobin from 13.9 - 12.9 - is still within normal ranges (while labs report RBC, generally we use hemoglobin and hematocrit as the most reliable markers for your red blood cells) -obviously if the vomiting worsens / you see more blood / things change from the coffee ground appearance to bright red, OR if you were to feel weak/lightheaded/dizzy - then we would want you to come back right away -we would want you to follow up with your regular family doc over the next few days to check in and make sure you're doing OK, and if things at all seem concerning, they could repeat labwork then as well -we'll have you stay on the protonix, and for a week we'll have you take pepcid (famotidine) on top of it - sometimes suppressing acid by different mechanisms at the same time can help gastritis heal over faster -- we wouldn't want to do that indefinitely as it can start to lead to malabsorption of nutrients, but often for short term use (like a week or two) it can help accelerate healing without causing too much trouble i understand that you've had bad experiences with doctors and have a generall mistrust of the medical system - and i totally get where you're coming from. i just want you to know that as a team, we (myself, dr bray, the nurses, dr rojas) all truly care about you and are here for you -- so if things were to get worse/feel worse, i don't want you fearful of coming back also - the gastroenterology team recommends you getting CT scans of your neck, chest, abdomen and pelvis - this can certainly be done as an outpatient and can be arranged through your PCP or oncology, but i did not want this to slip through the cracks. Pending Studies at Discharge: No Stand-Alone Forms: My [facility], Smoking Cessation Medications and DC Order Prescriptions: New famotidine 20 mg tablet 20 mg PO DAILY Qty: 7 RF: 0 Continued albuterol sulfate [Ventolin HFA] 90 mcg/actuation HFA aerosol inhaler 2 puff INHALATION Q4H PRN (Reason: Cough or Wheezing) Qty: 18 RF: 3 ondansetron HCl 4 mg tablet 4 mg PO QID PRN (Reason: Nausea) Qty: 30 RF: 3 ascorbic acid (vitamin C) [Vitamin C] 500 mg Tablet,Chewable 500 mg PO QAM RF: 0 pantoprazole 40 mg tablet,delayed release (DR/EC) 40 mg PO QAM Qty: 30 RF: 0 cyanocobalamin (vitamin B-12) [Vitamin B-12] 250 mcg tablet 250 mcg PO QAM RF: 0 Discharge Orders: Discharge Order (Routine); Ordered 06/24/20 Ordered By: Reji Lara Admission Data Admit Date/Time: 06/23/20 15:51 Attending Provider: Reji Lara Admit Provider: Leonid Pan Primary Care Provider: PCP,NO Other Providers: Leonid Pan ; Andrade Ghosh Other Interventions: Discharge Summary Assessment (RN) Last Done: 06/24/20 12:58 Supervising Physician Co-Signing Physician Notes I personally examined the patient and verified all foster points of history and exam, discussed case, and agree with decision making with Dr Bray. really wants to go smoke. wants to leave as well. 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 later in the discussion it becomes clear that she has a significant mistrust of doctors - relating that she believes her prior oncologists lied to her, and while she believes that [facility] [place] mean well "they always stuck me with someone different so i had to go over things every time" i then try to reiterate what appears reassuring about being safe for discharge, and try to impart a little of what we would want her to watch for, but she is unfortunately too anxious at this point and mostly is talking over me. i reassu re her that we will do discharge instructions promptly - and as soon as i leave the room i inform nursing that she'll be discharged and i immediately set to work doing the instructions - but unfortunately she leaves before i am able to complete them. knowing that she is adept at using the patient portal, i completed them with the hopes that she will review instructions in that fashion once her anxiety has calmed some. vitals noted pressured speech and anxious, but no physical distress. heent nc at mmm. skin no rashes no pallor or icterus. neuro no focal deficits. mental anxious w pressured speech vomiting/coffee ground emesis - likely gastritis related - but fortunately hemodynamically stable and no s/s significant blood loss. needed protonix refilled - continue this; added famotidine for 7 days for additional acid suppression. stress, tobacco abuse both certainly appear to be contributors. outpt f/u w PCP and would appreciate CBC next week for ongoing vigilance. for CT neck, chest, abdomen/pelvis - can be completed as outpt ongoing outpt f/u as regards to breast CA stable for home, otherwise as above Resident Activity Tracking Resident Involvement: Resident Care Provided Care Provided: Adult Hospital Medicine
--- NOTE | 2020-06-24 18:09 | Billing Data ---
Date of Service June 24, 2020 Coding Level of Care Code 71435 OBS Care - Discharge
[2020-06-26 13:32] LABS: Marijuana Quant, GCMS Urine >5000 ng/mL (<5)
== END 2020-06-24 13:00 | disposition home or self-care (01) ==
LOC: ED 12:24 → 2N 12:24 → SUATTDRO 15:51 → 2N 16:26